=== PATIENT | male | born 1970 | race Caucasian/White ===

== ENCOUNTER 2016-09-15 13:09 | Inpatient (IN) | payer OTHER ==
[~2016-09-15] VITALS: Ht 170.2 cm; Wt 84.0 kg
[~2016-09-15 13:09] MED LIST: ASPI-390 PO
[2016-09-15 14:07] LABS: HEMATOCRIT 41.9 % (42-52); MEAN CELL VOLUME 80.1 fL (80-100); MEAN CORPUSCULAR HEMOGLOBIN 27.2 pg (25-34); MEAN CORPUSCULAR HGB CONC 33.9 g/dl (32-36); MEAN PLATELET VOLUME 10.6 fL (7.4-10.4); PLATELET COUNT 246 K/uL (130-400); RED BLOOD COUNT 5.23 M/uL (4.7-6.1); WHITE BLOOD COUNT 13.03 K/uL (4.8-10.8)
[2016-09-15] MEDS ORDERED: SODIUM CHLORIDE 0.9% 1000ML 1,000 ML IV STA (14:13)
[2016-09-15] MEDS ORDERED: ONDANSETRON INJ 2 MG/ML 2 ML VIAL IV STA (14:13)
[2016-09-15 14:14] LABS: BUN/CREATININE RATIO 10.8 (10-20); CALCIUM 8.8 mg/dl (8.5-10.1); CREATININE 1.2 mg/dl (0.60-1.40); POTASSIUM 4.1 mmol/L (3.5-5.1)
[2016-09-15 14:16] LABS: PARTIAL THROMBOPLASTIN RATIO 0.9
[2016-09-15 14:18] LABS: ALB/GLOB RATIO 1.2 (0.9-2); CKMB/CK RATIO 0.7 (0-3.0)
[2016-09-15] MEDS ORDERED: CLINDAMYCIN IV 900 MG in DEXTROSE 5% ADD-VANTAGE 100ML 100 ML IV ONE (14:30)
--- NOTE | 2016-09-15 14:34 | DIAGNOSTIC IMAGING REPORT ---
CHEST ONE VIEW PORTABLE CLINICAL HISTORY: chest pain COMPARISON STUDY: 08/07/2016 FINDINGS: The heart is at the upper limits of normal in size. There is mild central vascular prominence. There are left lower lobe airspace opacities with air bronchograms. In the proper clinical setting this represents a pneumonia. Clinical and radiographic follow-up is recommended.[ IMPRESSION: Left lower lobe airspace opacities with air bronchograms. In the proper clinical setting this represents a pneumonia. Clinical and radiographic follow-up is recommended. Electronically signed by: Michele Rivera M.D. 09/15/2016 2:32 PM Dictated Date/Time: 09/15/2016 2:32 PM
[2016-09-15 14:43] LABS: BASO % 0.1 %; BASO ABS # 0.01 K/uL (0-0.2); COMPLETE YES; IG% 0.2 %; LYMPH % 6.4 %; LYMPH ABS # 0.83 K/uL (1.2-3.4); MONO % 1.4 %; NEUT % 91.9 %
[2016-09-15] MEDS ORDERED: CEFEPIME IV 2000 MG in DEXTROSE 5% 100ML IV ONE (15:00)
[2016-09-15] MEDS ORDERED: ONDANSETRON INJ 2 MG/ML 2 ML VIAL IV PRN (16:00)
[2016-09-15] MEDS ORDERED: ALBUTEROL HFA 8 GM INHALER INH PRN (16:15)
--- NOTE | 2016-09-15 16:31 | History and Physical ---
History & Physical Date & Time of Service: Sep 15, 2016 at 16:10 Chief Complaint: Chest Pain Primary Care Physician: Fabricio Kelley M.D. (MEDICAL) History of Present Illness Source: patient, clinic records, hospital records, other (fiance at bedside) This is a 46 year old male with PMH of HTN, HL, asthma, and other problems listed below who presents to the ED for respiratory difficulty. Patient had colonoscopy today at [facility] and vomited during the procedure. He was discharged around 1 pm and went to [facility] where he became nauseous and had 1 episode clear liquid bowel movement with slight blood. While walking back from the restroom he became cold, sweaty, shaky, and developed chest pain. He states CP is on the left side, non-radiating, described as pressure. He rates the pain 6/10 and it increases with cough. He reports cough after the procedure without any sputum production. Before that he had occasional cough for a few weeks. He reports being SOB this afternoon which resolved. Denies fever, palpitations, nausea, abdominal pain. Patient denies any cardiac history. He states reason for colonoscopy was rectal bleeding. The report from today's colonoscopy shows internal hemorrhoids and diverticulosis of sigmoid colon. Past Medical/Surgical History Medical Problems: (1) Asthma Status: Chronic (2) Benign hypertension Status: Chronic (3) Chronic headaches Status: Chronic (4) Depression Status: Chronic (5) GERD (gastroesophageal reflux disease) Status: Chronic (6) History of hemorrhoids Permanent Comment: s/p hemorrhoidectomy 03/03/15 Status: Chronic (7) History of kidney stones Status: Chronic (8) Hyperlipidemia Status: Chronic (9) MIGRAINE UNSPECIFIED W/O INTRACT MGRN W/O STATUS MIGRAINOSUS Status: Chronic Surgical Problems: (1) H/O colonoscopy Status: Chronic (2) H/O cystoscopy Status: Chronic (3) History of dental surgery Status: Chronic (4) History of lithotripsy Status: Chronic (5) S/P hemorrhoidectomy Permanent Comment: 03/03/2015 Status: Chronic Family History Asthma Diabetes mellitus SISTER AUNT FH: cancer FATHER Hypertension Kidney disease Social History Smoking Status: Never Smoker Alcohol Use: none Drug Use: none Marital Status: in relationship Housing status: lives with significant other (with fiance) Occupational Status: disabled Immunizations History of Influenza Vaccine: Yes History of Tetanus Vaccine?: Yes History of Pneumococcal: No History of Hepatitis B Vaccine: No Multi-Drug Resistant Organisms History of MDRO: Yes Type of MDRO: MRSA Allergies Coded Allergies: BEE STING (Verified Allergy, Mild, 08/07/16) Codeine (Verified Allergy, Unknown, 08/07/16) Home Medications Scheduled Aspirin Enteric Coated (Ecotrin Or Generic), 81 MG PO DAILY Atorvastatin (Atorvastatin Calcium), 20 MG PO HS Bupropion (Wellbutrin Sr), 100 MG PO BID Carvedilol (Carvedilol), 6.25 MG PO BID Docusate Sodium (Docqlace), 100 MG PO BID Fluticasone Propionate (Flovent Hfa), 2 PUFFS INH BID Fluticasone Propionate (Fluticasone Propionate), 2 SPRAYS JAXSON DAILY Gabapentin (Gabapentin), 600 MG PO TID Lamotrigine (Lamotrigine), 100 MG PO BID Omeprazole (Prilosec), 20 MG PO DAILY Sertraline HCl (Sertraline HCl), 200 MG PO HS Sucralfate (Sucralfate), 1 TAB PO ACHS Scheduled PRN Albuterol Hfa (Ventolin Hfa), 2 PUFFS INH QID PRN for Shortness of Breath Epinephrine (Epipen 2-Nathaniel), 0.3 MG IM UD PRN for ALLERGIC REACTION Review of Systems Ten point review of systems performed with pertinent positives and negatives noted in HPI. Physical Exam Vital Signs Date Time Temp Pulse Resp B/P Pulse Ox O2 Delivery O2 Flow Rate FiO2 09/15/16 15:00 89 20 99/63 92 Room Air 09/15/16 14:51 91 Room Air 09/15/16 13:53 95 Nasal Cannula 2.0 09/15/16 13:18 82 09/15/16 13:15 37.2 79 18 107/66 92 Room Air General Appearance: WD/WN, no apparent distress, + pertinent finding (alert cooperative 46 year old male, fiance at bedside) Head: normocephalic, atraumatic Eyes: normal inspection, PERRL, EOMI, sclerae normal ENT: hearing grossly normal, pharynx normal Neck: supple, trachea midline Respiratory/Chest: no respiratory distress, no accessory muscle use, + decreased breath sounds (left base), + pertinent finding (no wheezing) Cardiovascular: regular rate, rhythm, no murmur Abdomen/GI: normal bowel sounds, non tender, soft Extremities/Musculoskelatal: no calf tenderness, normal capillary refill, no pedal edema Neurologic/Psych: alert, normal mood/affect, oriented x 3, + pertinent finding (grossly nonfocal) Skin: normal color, warm/dry Diagnostics Laboratory Results Results Past 24 Hours Test 09/15/16 13:20 Range/Units White Blood Count 13.03 4.8-10.8 K/uL Red Blood Count 5.23 4.7-6.1 M/uL Hemoglobin 14.2 14.0-18.0 g/dL Hematocrit 41.9 42-52 % Mean Corpuscular Volume 80.1 80-100 fL Mean Corpuscular Hemoglobin 27.2 25-34 pg Mean Corpuscular Hemoglobin Concent 33.9 32-36 g/dl Platelet Count 246 130-400 K/uL Mean Platelet Volume 10.6 7.4-10.4 fL Neutrophils (%) (Auto) 91.9 % Lymphocytes (%) (Auto) 6.4 % Monocytes (%) (Auto) 1.4 % Eosinophils (%) (Auto) 0.0 % Basophils (%) (Auto) 0.1 % Neutrophils # (Auto) 11.83 1.4-6.5 K/uL Lymphocytes # (Auto) 0.83 1.2-3.4 K/uL Monocytes # (Auto) 0.18 0.11-0.59 K/uL Eosinophils # (Auto) 0.00 0-0.5 K/uL Basophils # (Auto) 0.01 0-0.2 K/uL RDW Standard Deviation 43.8 36.4-46.3 fL RDW Coefficient of Variation 15.2 11.5-14.5 % Immature Granulocyte % (Auto) 0.2 % Immature Granulocyte # (Auto) 0.03 0.00-0.02 K/uL Nucleated RBC Absolute Count (auto) 0.00 0-0 K/uL Nucleated Red Blood Cells % 0.0 % Prothrombin Time 11.0 9.0-12.0 SECONDS Prothromb Time International Ratio 1.0 0.9-1.1 Activated Partial Thromboplast Time 22.5 21.0-31.0 SECONDS Partial Thromboplastin Ratio 0.9 Sodium Level 141 136-145 mmol/L Potassium Level 4.1 3.5-5.1 mmol/L Chloride Level 105 98-107 mmol/L Carbon Dioxide Level 25 21-32 mmol/L Anion Gap 11.0 3-11 mmol/L Blood Urea Nitrogen 13 7-18 mg/dl Creatinine 1.20 0.60-1.40 mg/dl Est Creatinine Clear Calc Drug Dose 80.5 ml/min Estimated GFR () 83.0 Estimated GFR (Non- 71.6 BUN/Creatinine Ratio 10.8 10-20 Random Glucose 110 70-99 mg/dl Calcium Level 8.8 8.5-10.1 mg/dl Total Bilirubin 0.5 0.2-1 mg/dl Aspartate Amino Transf (AST/SGOT) 30 15-37 U/L Alanine Aminotransferase (ALT/SGPT) 48 12-78 U/L Alkaline Phosphatase 183 45-117 U/L Total Creatine Kinase 86 39-308 U/L Creatine Kinase MB 0.6 0.5-3.6 ng/ml Creatine Kinase MB Ratio 0.7 0-3.0 Total Protein 8.2 6.4-8.2 gm/dl Albumin 4.4 3.4-5.0 gm/dl Globulin 3.8 2.5-4.0 gm/dl Albumin/Globulin Ratio 1.2 0.9-2 Procalcitonin 0.09 0-0.5 ng/mL Microbiology Results 09/15/16 Blood Culture, Received Pending 09/15/16 Blood Culture, Received Pending Diagnostic Radiology CHEST ONE VIEW PORTABLE CLINICAL HISTORY: chest pain COMPARISON STUDY: 08/07/2016 FINDINGS: The heart is at the upper limits of normal in size. There is mild central vascular prominence. There are left lower lobe airspace opacities with air bronchograms. In the proper clinical setting this represents a pneumonia. Clinical and radiographic follow-up is recommended.[ IMPRESSION: Left lower lobe airspace opacities with air bronchograms. In the proper clinical setting this represents a pneumonia. Clinical and radiographic follow-up is recommended. EKG NSR, nonspecific T wave inversion in aVL, no ST changes, no significant change from prior EKG Impression Assessment and Plan ASPIRATION PNEUMONIA Saturating low-mid 90s on RA Afebrile; + leukocytosis (WBC 13,000), no tachycardia or hypotension Treated with clindamycin and cefepime in ER Will continue empiric clindamycin for anaerobe coverage Blood cultures pending Check sputum culture if able CHEST PAIN Likely due to pneumonia Initial troponin 0 at 13:28 Monitor in telemetry Trend serial cardiac enzymes ASTHMA Not in exacerbation Continue home inhalers HYPERTENSION BP is controlled Continue carvedilol DYSLIPIDEMIA Continue statin DEPRESSION Stable, continue home medications HISTORY OF MRSA Check MRSA nasal swab GERD Continue PPI DVT PROPHYLAXIS SCD's DISPOSITION Admitted to telemetry Follows with Dr. Kelley for primary care Patient seen in collaboration with Dr. Jacobs. Please see her addendum. I have seen, examined and discussed this patient with Mallory Gamez and I agree with the above note. Patient presented with chest pain after likely aspiration after colonoscopy earlier today. Vitals stable. PE: General- awake; alert; NAD Eyes- EOMI; no scleral icterus ENT- poor dentition Neck- no stridor; trachea midline Lungs- crackles left lung base, otherwise clear Heart- RRR; no m/r/g Abdomen- soft; NTND; nBS Back- no gross abnormalities Extremities- no c/c/e; no deformity Neuro- no gross focal deficits Skin- no appreciable rash or bruise Labs, imaging and EKG reviewed. Aspiration pneumonia: Continue clindamycin. Chest pain: ACS r/o, although very low clinical suspicion for cardiac etiology. Continue home medications as outlined above. Anticipate discharge tomorrow. VTE Prophylaxis VTE Risk Assessment Done? Y/N: Yes Risk Level: Low
[2016-09-15] MEDS ORDERED: KETOROLAC TROMETHAMINE 15 MG/ML VIAL IM PRN (17:45)
[2016-09-15 18:18] VITALS: BP 103/70; PULSE 102; TEMP 37.3; O2SAT 93; Ht 170.2 cm; Wt 84.0 kg
[2016-09-15 19:54] VITALS: BP_SYST 108; BP_SYST 120; BP_DIAS 67; BP_DIAS 68; PULSE 57; PULSE 77; TEMP 37.1; O2SAT 97
[2016-09-15] MEDS: CARVEDILOL 6.25 MG TAB PO SCH (20:43)
[2016-09-15] MEDS: BuPROPion SR 100 MG TABCR PO SCH (20:43)
[2016-09-15] MEDS: SUCRALFATE 1 GM TAB PO SCH (20:43)
[2016-09-15] MEDS: GABAPENTIN 600 MG TAB PO SCH (20:43)
[2016-09-15] MEDS: FLUTICASONE HFA 110MCG INHALER INH SCH (20:43)
[2016-09-15] MEDS ORDERED: SERTRALINE HCL 100 MG TAB PO SCH (21:00)
[2016-09-15] MEDS ORDERED: ATORVASTATIN 20 MG TAB PO SCH (21:00)
[2016-09-15] MEDS: CLINDAMYCIN IV 600 MG in DEXTROSE 5% ADD-VANTAGE 50ML 50 ML IV SCH (23:03)
[2016-09-15] MEDS ORDERED: KETOROLAC TROMETHAMINE 15 MG/ML VIAL IV. PRN (23:45)
[2016-09-16 00:24] VITALS: BP 90/52; PULSE 75; TEMP 36.9; O2SAT 93
[2016-09-16 01:39] LABS: HEMATOCRIT 35.3 % (42-52); MEAN CELL VOLUME 78.4 fL (80-100); MEAN CORPUSCULAR HEMOGLOBIN 25.8 pg (25-34); MEAN CORPUSCULAR HGB CONC 32.9 g/dl (32-36); MEAN PLATELET VOLUME 9.9 fL (7.4-10.4); PLATELET COUNT 159 K/uL (130-400); WHITE BLOOD COUNT 14.35 K/uL (4.8-10.8)
[2016-09-16 01:58] LABS: BLOOD UREA NITROGEN 16 mg/dl (7-18); BUN/CREATININE RATIO 15.7 (10-20); CALCIUM 8.3 mg/dl (8.5-10.1); CARBON DIOXIDE 26 mmol/L (21-32); CHLORIDE 105 mmol/L (98-107); GLUCOSE 100 mg/dl (70-99); MAGNESIUM 1.8 mg/dl (1.8-2.4); POTASSIUM 3.7 mmol/L (3.5-5.1); SODIUM 142 mmol/L (136-145)
[2016-09-16] MEDS: ACETAMINOPHEN 325 MG TAB PO PRN ×2 (03:56→12:13)
[2016-09-16 04:33] VITALS: BP 102/63; PULSE 78; TEMP 37.3; O2SAT 91
[2016-09-16] MEDS: CLINDAMYCIN IV 600 MG in DEXTROSE 5% ADD-VANTAGE 50ML 50 ML IV SCH (06:27)
[2016-09-16] MEDS: SUCRALFATE 1 GM TAB PO SCH ×2 (06:27→11:46)
[2016-09-16] MEDS: FLUTICASONE HFA 110MCG INHALER INH SCH (07:54)
[2016-09-16] MEDS: GABAPENTIN 600 MG TAB PO SCH (07:54)
[2016-09-16 07:55] VITALS: BP 101/66; PULSE 75; TEMP 36.4; O2SAT 93
[2016-09-16] MEDS: BuPROPion SR 100 MG TABCR PO SCH (07:55)
[2016-09-16] MEDS: CARVEDILOL 6.25 MG TAB PO SCH (07:55)
[2016-09-16] MEDS: LACTOBACILLUS ACIDOPHILUS (FLORANEX) TAB PO SCH ×2 (07:56→11:48)
[2016-09-16] MEDS ORDERED: ASPIRIN 81 MG ECTAB PO SCH (09:00)
[2016-09-16] MEDS ORDERED: PANTOprazole SOD 40 MG TAB PO SCH (09:00)
[2016-09-16] MEDS ORDERED: FLUTICASONE PROPIONATE NA SPR 16 GM BTL NAE SCH (09:00)
[2016-09-16 11:39] VITALS: BP 92/53; PULSE 61; TEMP 36.9; O2SAT 92
[2016-09-16] MEDS ORDERED: LCTX PO (12:40)
[2016-09-16] MEDS ORDERED: CLIN300C2 PO (12:40)
--- NOTE | 2016-09-16 12:43 | Discharge Instructions ---
Discharge Instructions Admission Reason for Admission: Aspiration Pneumonia Discharge Discharge Diagnosis / Problem: Aspiration pneumonia Discharge Goals Goal(s): Improve disease control Activity Recommendations Activity Limitations: resume your previous activity . Instructions / Follow-Up Instructions / Follow-Up Please follow up with Family Medicine Dr. Kelley on September 21 at 2:10pm. Please take the antibiotic Clindamycin as prescribed until you are finished. Please take the probiotic every day while you are on the antibiotic and then for one week after. Current Hospital Diet Patient's current hospital diet: Clear Liquid Diet Discharge Diet Recommended Diet: AHA Diet (Heart Healthy) Pending Studies Studies pending at discharge: no Medical Emergencies . Who to Call and When: Medical Emergencies: If at any time you feel your situation is an emergency, please call 911 immediately. . Non-Emergent Contact Non-Emergency issues call your: Primary Care Provider . . "Provider Documentation" section prepared by Bridgett Cornell. VTE Core Measure Inpt VTE Proph given/why not?: SCD's
[2016-09-16 15:58] VITALS: BP 107/73; PULSE 80; TEMP 36.4; O2SAT 95
--- NOTE | 2016-09-16 21:52 | Discharge Summary ---
Discharge Summary Admission Date: Sep 15, 2016 at 15:55 Discharge Date: Sep 16, 2016 Discharge Disposition: Home Principal Diagnosis: Aspiration pneumonia Medication Reconciliation New Medications: Clindamycin Hcl (Cleocin) 300 Mg Cap 300 MG PO QID for 7 Days, #28 CAP Lactobacillus Acidophilus (Floranex) 1 Tab Tab 4 TAB PO TIDM for 14 Days, #56 TAB Continued Medications: Albuterol Hfa (Ventolin Hfa) 200 Puffs/29871 Mcg Aers 2 PUFFS INH QID PRN for Shortness of Breath Aspirin Enteric Coated (Ecotrin Or Generic) 81 Mg Tab 81 MG PO DAILY, TAB Atorvastatin (Atorvastatin Calcium) 20 Mg Tab 20 MG PO HS Bupropion (Wellbutrin Sr) 100 Mg Ertab 100 MG PO BID Carvedilol (Carvedilol) 6.25 Mg Tab 6.25 MG PO BID Docusate Sodium (Docqlace) 100 Mg Cap 100 MG PO BID Epinephrine (Epipen 2-Nathaniel) 0.3 Mg Inj 0.3 MG IM UD PRN for ALLERGIC REACTION Fluticasone Propionate (Flovent Hfa) 120 Puffs/39654 Mcg Aero 2 PUFFS INH BID Fluticasone Propionate (Fluticasone Propionate) 120 Sprays/6000 Mcg Inha 2 SPRAYS JAXSON DAILY Gabapentin (Gabapentin) 600 Mg Tab 600 MG PO TID Lamotrigine (Lamotrigine) 100 Mg Tab 100 MG PO BID Omeprazole (Prilosec) 20 Mg Cap 20 MG PO DAILY TAKE THIS MEDICATION ONCE DAILY ONE HOUR BEFORE FIRST MEAL OF THE DAY Sertraline HCl (Sertraline HCl) 100 Mg Tab 200 MG PO HS TAKE THIS MEDICATION ONE HOUR BEFORE BEDTIME. Sucralfate (Sucralfate) 1 Gm Tab 1 TAB PO ACHS for 30 Days, TAB 3 Refills Admission Information HPI (per Admitting provider): This is a 46 year old male with PMH of HTN, HL, asthma, and other problems listed below who presents to the ED for respiratory difficulty. Patient had colonoscopy today at [facility] and vomited during the procedure. He was discharged around 1 pm and went to [employer] where he became nauseous and had 1 episode clear liquid bowel movement with slight blood. While walking back from the restroom he became cold, sweaty, shaky, and developed chest pain. He states CP is on the left side, non-radiating, described as pressure. He rates the pain 6/10 and it increases with cough. He reports cough after the procedure without any sputum production. Before that he had occasional cough for a few weeks. He reports being SOB this afternoon which resolved. Denies fever, palpitations, nausea, abdominal pain. Patient denies any cardiac history. He states reason for colonoscopy was rectal bleeding. The report from today's colonoscopy shows internal hemorrhoids and diverticulosis of sigmoid colon. Physical Exam (per Admitting): General Appearance: WD/WN, no apparent distress, + pertinent finding (alert cooperative 46 year old male, fiance at bedside) Head: normocephalic, atraumatic Eyes: normal inspection, PERRL, EOMI, sclerae normal ENT: hearing grossly normal, pharynx normal Neck: supple, trachea midline Respiratory/Chest: no respiratory distress, no accessory muscle use, + decreased breath sounds (left base), + pertinent finding (no wheezing) Cardiovascular: regular rate, rhythm, no murmur Abdomen/GI: normal bowel sounds, non tender, soft Extremities/Musculoskelatal: no calf tenderness, normal capillary refill, no pedal edema Neurologic/Psych: alert, normal mood/affect, oriented x 3, + pertinent finding (grossly nonfocal) Skin: normal color, warm/dry Hospital Course Patient was admitted with LLL aspiration pneumonia, noted on CXR. Patient was continued on Clindamycin. Probiotic was started as well. ACS r/o was negative and there was very little clinical suspicion for cardiac etiology of patient's symptoms. Patient clinically improved and was deemed stable for discharge to complete a course of Clindamycin. Patient will follow up with Family Medicine. PE on discharge: General- awake; alert; NAD Eyes- EOMI; no scleral icterus Neck- no stridor; trachea midline Lungs- left basilar crackles, otherwise clear Heart- RRR; no m/r/g Abdomen- soft; NTND; nBS Back- no gross abnormalities Extremities- no c/c/e; no deformity Neuro- no gross focal deficits Skin- no appreciable rash or bruise . Total time spent on discharge = This includes examination of the patient, discharge planning, medication reconciliation, and communication with other providers. Discharge Instructions Discharge Instructions Admission Reason for Admission: Aspiration Pneumonia Discharge Discharge Diagnosis / Problem: Aspiration pneumonia Discharge Goals Goal(s): Improve disease control Activity Recommendations Activity Limitations: resume your previous activity . Instructions / Follow-Up Instructions / Follow-Up Please follow up with Family Medicine Dr. Kelley on September 21 at 2:10pm. Please take the antibiotic Clindamycin as prescribed until you are finished. Please take the probiotic every day while you are on the antibiotic and then for one week after. Current Hospital Diet Patient's current hospital diet: Clear Liquid Diet Discharge Diet Recommended Diet: AHA Diet (Heart Healthy) Pending Studies Studies pending at discharge: no Medical Emergencies . Who to Call and When: Medical Emergencies: If at any time you feel your situation is an emergency, please call 911 immediately. . Non-Emergent Contact Non-Emergency issues call your: Primary Care Provider . . "Provider Documentation" section prepared by Bridgett Cornell. VTE Core Measure Inpt VTE Proph given/why not?: SCD's Additional Copies To Fabricio Kelley M.D. (MEDICAL)
--- NOTE | 2016-09-21 15:45 | EMERGENCY ROOM VISIT NOTE ---
History First contact with patient: 14:00 Chief Complaint: CARDIAC ASSESSMENT Stated Complaint: ASPIRATION PNEUMONIA Nursing Triage Summary: PT PRESENTS TO ED VIA ALS FROM [facility] WITH C/O CHESTPAIN. PT HAD COLONOSCOPY COMPLETED THIS AM. WENT TO [facility] AFTER SCOPE. PT DENIES NAUSEA AT TIMES History of Present Illness The patient is a 46 year old male who presents to the Emergency Department via EMS for evaluation of his chest pain and called with breathing. The patient reports that he has scheduled colonoscopy today at [facility]. He reports that he had vomited during the procedure at some point. He was monitored at their facility for an extended period of time. It was felt that he was ready to be discharged. He and his significant other had gone to the [facility] for lunch when the patient developed watery diarrhea as well as nausea and vomiting. When he returned to the table, he became extreme nauseated and had some chest discomfort and difficulty with breathing. He was brought via EMS to the emergency department for evaluation. Patient currently complains of some mild central chest discomfort in his pain a 4/10. He has had a cough since. The patient denies any fevers, headaches, blurry vision, double vision, nausea, vomiting. Review of Systems A complete 10-point Review of Systems was discussed with the patient, with pertinent positives and negatives listed in the History of Present Illness. All remaining Review of Systems questions can be considered negative unless otherwise specified. Past Medical/Surgical History Medical Problems: (1) Aspiration pneumonia (2) Asthma (3) Benign hypertension (4) Chest pain (5) Chronic headaches (6) Depression (7) GERD (gastroesophageal reflux disease) (8) History of hemorrhoids (9) History of kidney stones (10) Hyperlipidemia (11) MIGRAINE UNSPECIFIED W/O INTRACT MGRN W/O STATUS MIGRAINOSUS Surgical Problems: (1) H/O colonoscopy (2) H/O cystoscopy (3) History of dental surgery (4) History of lithotripsy (5) S/P hemorrhoidectomy Family History Asthma Diabetes mellitus SISTER AUNT FH: cancer FATHER Hypertension Kidney disease Social History Smoking Status: Former Smoker Alcohol Use: none Drug Use: none Marital Status: in relationship Housing Status: lives with significant other Occupation Status: disabled Current/Historical Medications Scheduled Aspirin Enteric Coated (Ecotrin Or Generic), 81 MG PO DAILY Atorvastatin (Atorvastatin Calcium), 20 MG PO HS Bupropion (Wellbutrin Sr), 100 MG PO BID Carvedilol (Carvedilol), 6.25 MG PO BID Clindamycin Hcl (Cleocin), 300 MG PO QID Docusate Sodium (Docqlace), 100 MG PO BID Fluticasone Propionate (Flovent Hfa), 2 PUFFS INH BID Fluticasone Propionate (Fluticasone Propionate), 2 SPRAYS JAXSON DAILY Gabapentin (Gabapentin), 600 MG PO TID Lactobacillus Acidophilus (Floranex), 4 TAB PO TIDM Lamotrigine (Lamotrigine), 100 MG PO BID Omeprazole (Prilosec), 20 MG PO DAILY Sertraline HCl (Sertraline HCl), 200 MG PO HS Sucralfate (Sucralfate), 1 TAB PO ACHS Scheduled PRN Albuterol Hfa (Ventolin Hfa), 2 PUFFS INH QID PRN for Shortness of Breath Epinephrine (Epipen 2-Nathaniel), 0.3 MG IM UD PRN for ALLERGIC REACTION Allergies Coded Allergies: BEE STING (Verified Allergy, Mild, 08/07/16) Codeine (Verified Allergy, Unknown, 08/07/16) Physical Exam Vital Signs Date Time Temp Pulse Resp B/P Pulse Ox O2 Delivery O2 Flow Rate FiO2 09/15/16 15:00 89 20 99/63 92 Room Air 09/15/16 14:51 91 Room Air 09/15/16 13:53 95 Nasal Cannula 2.0 09/15/16 13:18 82 09/15/16 13:15 37.2 79 18 107/66 92 Room Air Pain Rating (0-10): 4.0 Physical Exam VITAL SIGNS - Vital signs and nursing notes were reviewed. GENERAL - 46-year-old male appearing his stated age who is in no acute distress. Communicates well with provider and answers questions appropriately. HEAD - NC/AT. EYES - PERRL with EOMI bilaterally. Sclera anicteric. Palpebral conjunctiva pink and moist with no injection noted. EARS - No deformities of external structures noted on gross examination bilaterally. No pain elicited with palpation of the tragus bilaterally. External auditory canals without discharge or otorrhea. Tympanic membranes pearly moore without retraction or bulging. NOSE - Midline and without cyanosis. No epistaxis or purulent drainage noted. Septum midline without deviation or septal hematoma noted. MOUTH/OROPHARYNX - Without perioral cyanosis. Buccal mucosa pink and moist and without leukoplakia. Tongue midline with equal elevation of palate bilaterally. No tonsillar hypertrophy, erythema, or exudates noted. NECK - Neck with FROM. Supple to palpation. LUNGS - Chest wall symmetric without accessory muscle use, intercostals retractions, or central cyanosis. Normal vesicular breath sounds CTA B/L. No wheezes, rales, or rhonchi appreciated. CARDIAC - RRR with S1/S2. No murmur, rubs, or gallops appreciated. No reproducible tenderness to palpation appreciated over the anterior chest wall. ABDOMEN - Abdominal contour flat and without pulsations or visible masses. BS normoactive all four quadrants. No tenderness, palpable masses, hepatosplenomegaly, or ascites noted. EXTREMITIES - No clubbing or peripheral cyanosis. No pretibial edema present. +3 /5 radial and dorsalis pedis pulses palpated throughout. +5/5 strength noted in UE/LE bilaterally. NEUROLOGIC - Cranial nerves II through XII grossly intact. Sensory intact to light touch throughout. PSYCH - A&Ox3 and cooperates fully with examiner. Pt is very pleasant and interacts well with examiner. Medical Decision & Procedures ER Provider Diagnostic Interpretation: Radiological imaging and reports were reviewed by myself. Radiologist's Interpretation as follows: CHEST ONE VIEW PORTABLE CLINICAL HISTORY: chest pain COMPARISON STUDY: 08/07/2016 FINDINGS: The heart is at the upper limits of normal in size. There is mild central vascular prominence. There are left lower lobe airspace opacities with air bronchograms. In the proper clinical setting this represents a pneumonia. Clinical and radiographic follow-up is recommended.[ IMPRESSION: Left lower lobe airspace opacities with air bronchograms. In the proper clinical setting this represents a pneumonia. Clinical and radiographic follow-up is recommended. Laboratory Results Test 09/15/16 13:20 Immature Granulocyte % (Auto) 0.2 % White Blood Count 13.03 K/uL (4.8-10.8) Red Blood Count 5.23 M/uL (4.7-6.1) Hemoglobin 14.2 g/dL (14.0-18.0) Hematocrit 41.9 % (42-52) Mean Corpuscular Volume 80.1 fL (80-100) Mean Corpuscular Hemoglobin 27.2 pg (25-34) Mean Corpuscular Hemoglobin Concent 33.9 g/dl (32-36) Platelet Count 246 K/uL (130-400) Mean Platelet Volume 10.6 fL (7.4-10.4) Neutrophils (%) (Auto) 91.9 % Lymphocytes (%) (Auto) 6.4 % Monocytes (%) (Auto) 1.4 % Eosinophils (%) (Auto) 0.0 % Basophils (%) (Auto) 0.1 % Neutrophils # (Auto) 11.83 K/uL (1.4-6.5) Lymphocytes # (Auto) 0.83 K/uL (1.2-3.4) Monocytes # (Auto) 0.18 K/uL (0.11-0.59) Eosinophils # (Auto) 0.00 K/uL (0-0.5) Basophils # (Auto) 0.01 K/uL (0-0.2) Immature Granulocyte # (Auto) 0.03 K/uL (0.00-0.02) Nucleated RBC Absolute Count (auto) 0.00 K/uL (0-0) Nucleated Red Blood Cells % 0.0 % Prothrombin Time 11.0 SECONDS (9.0-12.0) Prothromb Time International Ratio 1.0 (0.9-1.1) Activated Partial Thromboplast Time 22.5 SECONDS (21.0-31.0) Partial Thromboplastin Ratio 0.9 Total Bilirubin 0.5 mg/dl (0.2-1) Aspartate Amino Transf (AST/SGOT) 30 U/L (15-37) Alanine Aminotransferase (ALT/SGPT) 48 U/L (12-78) Alkaline Phosphatase 183 U/L (45-117) Total Protein 8.2 gm/dl (6.4-8.2) Albumin 4.4 gm/dl (3.4-5.0) Globulin 3.8 gm/dl (2.5-4.0) Albumin/Globulin Ratio 1.2 (0.9-2) Procalcitonin 0.09 ng/mL (0-0.5) Date/Time Source Procedure Growth Status 09/15/16 14:44 Blood Blood Culture - Final NO GROWTH Complete Medications Administered Medications (Trade) Dose Ordered Sig/Judy Route Start Time Stop Time Status Last Admin Dose Admin Ondansetron HCl 4 mg 4 mg NOW STAT IV 09/15/16 14:13 09/15/16 14:15 DC 09/15/16 14:21 4 MG Sodium Chloride 1,000 ml @ 999 mls/hr Q1H1M STAT IV 09/15/16 14:13 09/15/16 15:13 DC 09/15/16 14:20 999 MLS/HR Clindamycin Phosphate 900 mg/ Dextrose 106 ml @ 100 mls/hr ONE ONCE IV 09/15/16 14:30 09/15/16 15:33 DC 09/15/16 14:58 100 MLS/HR Cefepime HCl/ Dextrose (Maxipime IV/D5 100ml) 112.5 ml @ 225 mls/hr NOW ONCE IV 09/15/16 15:00 09/15/16 15:29 DC 09/15/16 15:08 225 MLS/HR Procedure Patient was placed on the night monitor and monitored throughout the entire extent of their stay. In addition, the patient's pulse oximetry was monitored throughout the entire stay. Any abnormalities or aberrancies were addressed appropriately. ECG Indication: chest pain, SOB/dyspnea Rate (beats per minute): 76 Rhythm: normal sinus Findings: nonspecific-ST abn Change: no significant change (from 06/24/2016.) ED Course Patient was seen and evaluated by myself. Labs were drawn, saline lock complains. EKG and chest x-rays were obtained. Patient was treated with formal grams Zofran and hydrated with a 1000 mL normal saline bolus. Laboratory results demonstrate a moderate leukocytosis. The patient is not anemic. There are no significant electrolyte abnormalities. Cardiac enzymes are negative. Chest x-ray concerning for left lower lobe infiltrate. Given the patient's recent vomiting during procedure, I suspect the patient has likely expansive aspiration pneumonitis. Blood cultures were obtained. The patient was treated with clindamycin and cefepime. The patient will be admitted to the hospitalist program for continued management. Patient admitted in stable condition. Medical Decision Given the patient's presentation and stated complaint, I did elect to perform the above-mentioned workup. I am familiar with this patient for multiple previous visits for chronic migrainous headaches. The patient does appear somewhat shaken today and concerned. Patient did experience some vomiting during a colonoscopy procedure under general anesthesia. Patient's pulse ox was closely monitored and it was felt that he was ready to be discharged. At this point, the patient is borderline hypoxic and has an infiltrate on the LEFT lower lobe of the lung concern for aspiration pneumonia. Blood cultures were obtained and the patient was treated with IV clindamycin as well as IV cefepime at the recommendation of pharmacy. Blood cultures are pending at this time. Patient will be admitted for continued management. Patient admitted in fair condition. In the evaluation and treatment of this patient, the following differential diagnoses were considered: SC, ASC, Dysrhythmia, Angina, Mediastinitis, GERD, Esophagitis, PE, Pneumonia, Bronchitis, Costochondritis, Rib Fracture, Zoster. Impression Primary Impression: Aspiration pneumonia Departure Information Dispostion Admitted as an inpatient Condition GOOD Prescriptions Clindamycin Hcl (CLEOCIN) 300 Mg Cap 300 MG PO QID for 7 Days, #28 CAP Prov: Bridgett Jacobs MD 09/16/16 Lactobacillus Acidophilus (Floranex) 1 Tab Tab 4 TAB PO TIDM for 14 Days, #56 TAB Prov: Bridgett Jacobs MD 09/16/16 Referrals Fabricio Kelley M.D. (MEDICAL) (PCP) Forms IMPORTANT VISIT INFORMATION Patient Instructions [facility] Problem Qualifiers Primary Impression: Aspiration pneumonia Aspiration pneumonia type: unspecified Laterality: left Lung location: lower lobe of lung Qualified Codes: J69.0 - Pneumonitis due to inhalation of food and vomit
[2017-04-02] MEDS ORDERED: DOCU100C22 PO (15:52)
[2017-04-02] MEDS ORDERED: SUCR1TAB PO (16:09)
[2017-04-02] MEDS ORDERED: VNTHFA/IN INH (16:19)
[2017-04-02] MEDS ORDERED: BUPR100T8 PO (16:19)
[2017-04-02] MEDS ORDERED: FLVHFA110 INH (20:51)
[2017-04-02] MEDS ORDERED: LPT/20 PO (20:51)
[2017-04-02] MEDS ORDERED: OMEP20CA9 PO (20:51)
[2017-04-02] MEDS ORDERED: NRN600 PO (20:51)
[2017-04-02] MEDS ORDERED: ZLF/100 PO (20:51)
[2017-04-02] MEDS ORDERED: EPP3/2 IM (20:51)
[2017-04-02] MEDS ORDERED: LAMO1TAB21 PO (20:51)
[2017-04-02] MEDS ORDERED: FLNIN/ NAE (21:19)
[2017-04-02] MEDS ORDERED: CRG625 PO (21:19)
[2017-04-02] MEDS ORDERED: ASPI81TA21 PO (22:37)
== END 2016-09-16 13:20 | disposition home or self-care (01) | DRG 205 ==
LOC: ENRESERVTM → ENRESERVDT → EDBD 13:09 → C.EDA 13:10 → C.2E 15:55 → EDBEDREQSVC 16:00
PROVIDERS: ADMIT Internal Medicine; ATTEND Internal Medicine
DX: J95.89 Other postprocedural complications and disorders of respiratory system, not elsewhere classified (principal); J69.0 Pneumonitis due to inhalation of food and vomit; I10 Essential (primary) hypertension; J45.909 Unspecified asthma, uncomplicated; F32.9 Major depressive disorder, single episode, unspecified; K21.9 Gastro-esophageal reflux disease without esophagitis; E78.5 Hyperlipidemia, unspecified; Z83.3 Family history of diabetes mellitus; Z82.49 Family history of ischemic heart disease and other diseases of the circulatory system; Z84.1 Family history of disorders of kidney and ureter; Z79.82 Long term (current) use of aspirin; Z79.899 Other long term (current) drug therapy

== ENCOUNTER 2016-10-06 14:55 | Emergency (ER) | payer OTHER ==
[~2016-10-06] VITALS: Ht 170.2 cm; Wt 87.1 kg
[~2016-10-06 14:55] MED LIST changes: -ASPI-390 PO; +LCTX PO
[2016-10-06 15:16] VITALS: TEMP 37.1; Ht 170.2 cm; Wt 87.1 kg
[2016-10-06] MEDS ORDERED: MoRPHine SULFATE 10 MG/ML CARP/VIAL IM STA (15:37)
[2016-10-06] MEDS ORDERED: PROMETHAZINE HCL INJ 25 MG/ML 1 ML VIAL IM STA (15:37)
[2016-10-06 16:39] VITALS: BP 115/73; PULSE 65; O2SAT 97
--- NOTE | 2016-10-07 00:15 | EMERGENCY ROOM VISIT NOTE ---
History Report prepared by Meagan: Griselda Krueger Under the Supervision of: Dr. Harry Cordon M.D. First contact with patient: 15:27 Chief Complaint: HEADACHE Stated Complaint: MIGRAINE History of Present Illness The patient is a 46 year old male who presents to the Emergency Room with complaints of a gradually worsening frontal headache that started this morning. He rates his discomfort as a 7/10 in severity. The patient states that he has been seeing pain management and getting shots, which have helped. The headache feels like his typical migraines. He is also experiencing nausea. Pt denies LOC , recent trauma to the head, visual changes, neck pain, chest pain, breathing difficulties, vomiting, abdominal pain, new back pain, diarrhea, numbness, rash , or other complaints. Source of History: patient Onset: this morning Position: head Symptom Intensity: 7/10 Quality: other (headache) Timing: worsening (gradually) Associated Symptoms: + nausea Review of Systems See HPI for pertinent positives and negatives. A total of ten systems were reviewed and were otherwise negative. Past Medical & Surgical Medical Problems: (1) Aspiration pneumonia (2) Asthma (3) Benign hypertension (4) Chest pain (5) Chronic headaches (6) Depression (7) GERD (gastroesophageal reflux disease) (8) History of hemorrhoids (9) History of kidney stones (10) Hyperlipidemia (11) MIGRAINE UNSPECIFIED W/O INTRACT MGRN W/O STATUS MIGRAINOSUS Surgical Problems: (1) H/O colonoscopy (2) H/O cystoscopy (3) History of dental surgery (4) History of lithotripsy (5) S/P hemorrhoidectomy Family History Asthma Diabetes mellitus SISTER AUNT FH: cancer FATHER Hypertension Kidney disease Social History Smoking Status: Former Smoker Alcohol Use: none Drug Use: none Marital Status: in relationship Housing Status: lives with significant other Occupation Status: disabled Current/Historical Medications Scheduled Aspirin Enteric Coated (Ecotrin Or Generic), 81 MG PO DAILY Atorvastatin (Atorvastatin Calcium), 20 MG PO HS Bupropion (Wellbutrin Sr), 100 MG PO BID Carvedilol (Carvedilol), 6.25 MG PO BID Docusate Sodium (Docqlace), 100 MG PO BID Fluticasone Propionate (Flovent Hfa), 2 PUFFS INH BID Fluticasone Propionate (Fluticasone Propionate), 2 SPRAYS JAXSON DAILY Gabapentin (Gabapentin), 600 MG PO TID Lamotrigine (Lamotrigine), 100 MG PO BID Omeprazole (Prilosec), 20 MG PO DAILY Sertraline HCl (Sertraline HCl), 200 MG PO HS Sucralfate (Sucralfate), 1 GM PO ACHS Scheduled PRN Albuterol Hfa (Ventolin Hfa), 2 PUFFS INH QID PRN for Shortness of Breath Epinephrine (Epipen 2-Nathaniel), 0.3 MG IM UD PRN for ALLERGIC REACTION Allergies Coded Allergies: BEE STING (Verified Allergy, Mild, 08/07/16) Codeine (Verified Allergy, Unknown, 08/07/16) Physical Exam Vital Signs Date Time Temp Pulse Resp B/P Pulse Ox O2 Delivery O2 Flow Rate FiO2 10/06/16 16:39 65 16 115/73 97 Room Air 10/06/16 15:16 37.1 66 20 117/77 96 Room Air Physical Exam GENERAL: Awake, alert, well appearing, no distress HENT: Normocephalic, atraumatic. TM's normal. Oropharynx unremarkable. EYES: PERRL. EOMI. Normal conjunctiva. Sclera non-icteric. NECK: Supple. No nuchal rigidity. FROM. No JVD or bruit. RESPIRATORY: CTA CARDIAC: RRR. No murmur. ABDOMEN: Soft, non distended. No tenderness to palpation. No rebound or guarding. No masses. RECTAL: Deferred. MUSCULOSKELETAL: Unremarkable. No edema. No discoloration. Gross motor strength symmetric. NEURO: Cranial nerves 2-12 grossly intact. Normal sensorium. No sensory or motor deficits noted. Speech normal. No pronator drift. SKIN: No rash or jaundice noted. LYMPH: No adenopathy. Medical Decision & Procedures Medications Administered Medications (Trade) Dose Ordered Sig/Judy Route Start Time Stop Time Status Last Admin Dose Admin Promethazine HCl (Phenergan Inj) 50 mg NOW STAT IM 10/06/16 15:37 10/06/16 15:38 DC 10/06/16 16:09 50 MG Morphine Sulfate (MoRPHine SULFATE INJ) 10 mg NOW STAT IM 10/06/16 15:37 10/06/16 15:38 DC 10/06/16 16:08 10 MG ED Course 1535: The patient was evaluated in room D9. A complete history and physical exam was performed. 1537: Ordered Morphine Sulfate 10 mg IM, Phenergan Inj 50 mg IM 1615: I reevaluated the patient. Discussed results and discharge instructions: he verbalized understanding and agreement. The patient is ready for discharge. Medical Decision Prior records/ancillary studies reviewed. Triage Nursing notes reviewed and agree them. The patient's history was concerning for headache. Differential diagnosis: Etiologies such as migraine headache, meningitis, sinusitis, CO exposure, ICH, SAH, infection, tumor, headache, sinus thrombosis, arterial dissection, as well as others were entertained. Physical examination findings: As above. Non-focal. ER treatment provided: Morphine 10 mg IM Phenergan 50 mg IM On reassessment the patient felt better. Diagnostics interpreted by me: Deferred The patient has long history of migraine headaches. He is on a treatment plan. Has been several weeks since he has been in the emergency department for treatment. He is undergoing pain management. The patient had a nonfocal examination. He was treated with his usual medications and had good relief. Conservative management was discussed. The patient was in agreement. If he worsens she will come back for reevaluation. I gave my usual and customary discussion regarding this issue. By the evaluation outlined above emergent etiologies such as meningitis, sinusitis, CO exposure, ICH, SAH, infection, temporal arteritis, tumor, sinus thrombosis, arterial dissection, as well as others were deemed relatively unlikely. The patient was informed about the findings as listed above. All questions were answered and he was pleased with the treatment. Return instructions were outlined and the patient was discharged in stable condition. Outpatient prescription management: None Referral: The patient was referred back to his primary care physician for follow-up in 2 to 3 days for a recheck of the current condition. The chart was completed utilizing Real Time Translation Speech voice recognition software. Grammatical errors, random word insertions, pronoun errors, and incomplete sentences are an occasional consequence of this system due to software limitations, ambient noise, and hardware issues. Any formal questions or concerns about the content, text, or information contained within the body of this dictation should be directly addressed to the physician for clarification. Impression Primary Impression: Headache Scribe Attestation The scribe's documentation has been prepared under my direction and personally reviewed by me in its entirety. I confirm that the note above accurately reflects all work, treatment, procedures, and medical decision making performed by me. Departure Information Dispostion Home / Self-Care Referrals Fabricio Kelley M.D. (MEDICAL) (PCP) Patient Instructions [facility] Additional Instructions HEADACHE INSTRUCTIONS: DO NOT drive, drink alcohol, operate machinery, or perform dangerous activities today. You were given medications in the ER that can affect your ability to safely function or operate a vehicle. Rest today in a quiet, peaceful, dark environment and get a full 8-10 hrs of sleep tonight. Avoid loud noises, smoke/smoking, alcohol, bright lights, stress, or physical exertion today to minimize the chance the headache may return. Continue current medications. Ibuprofen(Motrin, Advil) may be used for fever or pain. Use 600mg every six hours as needed. Take with food. Avoid using more than 2400mg in a 24 hour period. Do not use 2400mg per day for more than three consecutive days without physician direction. Prolonged inappropriate use can lead to stomach upset or ulcers. (AND/OR) Acetaminophen(Tylenol) may be used for fever or pain. Use 1000mg every six hours as needed. Avoid using more than 4000mg in a 24 hour period. Return to the ER for passing out, worsening headache, vision problems, neck stiffness/pain, fevers, vomiting, worsening of your condition, or as needed. Follow up with your primary physician in 2-3 days for a recheck of your current condition. Problem Qualifiers Primary Impression: Headache Headache type: unspecified Headache chronicity pattern: episodic headache Intractability: not intractable Qualified Codes: R51 - Headache
[2017-04-02] MEDS ORDERED: DOCU100C22 PO (15:52)
[2017-04-02] MEDS ORDERED: SUCR1TAB PO (16:09)
[2017-04-02] MEDS ORDERED: BUPR100T8 PO (16:19)
[2017-04-02] MEDS ORDERED: VNTHFA/IN INH (16:19)
[2017-04-02] MEDS ORDERED: LAMO1TAB21 PO (20:51)
[2017-04-02] MEDS ORDERED: ZLF/100 PO (20:51)
[2017-04-02] MEDS ORDERED: EPP3/2 IM (20:51)
[2017-04-02] MEDS ORDERED: FLVHFA110 INH (20:51)
[2017-04-02] MEDS ORDERED: OMEP20CA9 PO (20:51)
[2017-04-02] MEDS ORDERED: LPT/20 PO (20:51)
[2017-04-02] MEDS ORDERED: NRN600 PO (20:51)
[2017-04-02] MEDS ORDERED: FLNIN/ NAE (21:19)
[2017-04-02] MEDS ORDERED: CRG625 PO (21:19)
[2017-04-02] MEDS ORDERED: ASPI81TA21 PO (22:37)
== END 2016-10-06 16:50 | disposition home or self-care (01) ==
LOC: C.EDB 14:56 → C.EDD 16:50
DX: R51 Headache (principal); I10 Essential (primary) hypertension; E78.5 Hyperlipidemia, unspecified; K21.9 Gastro-esophageal reflux disease without esophagitis; J45.909 Unspecified asthma, uncomplicated; F32.9 Major depressive disorder, single episode, unspecified; Z87.442 Personal history of urinary calculi; Z98.890 Other specified postprocedural states; Z87.891 Personal history of nicotine dependence; Z79.82 Long term (current) use of aspirin; Z79.899 Other long term (current) drug therapy; Z88.5 Allergy status to narcotic agent; Z91.030 Bee allergy status; Z83.3 Family history of diabetes mellitus; Z80.9 Family history of malignant neoplasm, unspecified; Z82.49 Family history of ischemic heart disease and other diseases of the circulatory system; Z84.1 Family history of disorders of kidney and ureter

== ENCOUNTER 2016-10-25 13:03 | Emergency (ER) | payer OTHER ==
[~2016-10-25] VITALS: Ht 170.2 cm; Wt 88.8 kg
[2016-10-25 13:06] VITALS: TEMP 37; Ht 170.2 cm; Wt 88.8 kg
[2016-10-25] MEDS ORDERED: XYLOCAINE 1%/SOD BICARB 20 ML VIAL INFIL ONE (13:10)
[2016-10-25 13:54] VITALS: BP 122/80; PULSE 66; O2SAT 98
--- NOTE | 2016-10-29 09:08 | EMERGENCY ROOM VISIT NOTE ---
ED Visit Note First contact with patient: 13:24 Chief Complaint: Left index finger laceration. History of Present Illness: Mr. Gregg is a 46-year-old white male who ambulates into the ED accompanied by his complaining of a posterior left finger laceration. Patient reports approximately one hour ago he was grinding a piece of metal and accidentally cut his finger with the swing grinder. Control bleeding prior to arrival at the hospital but did not clean the wound. In addition to his wound he is complaining of a burning lying over the posterior aspect of the left index finger over the middle phalanx in the area the laceration. He rates his discomfort 5/10. The pain is nonradiating. Pain slightly worsens with palpation. He has not identified any alleviating related to the pain. He has not taken medications for pain prior to arrival at the hospital. He denies any associated symptoms including other finger or hand pain , index finger weakness/numbness/tingling. Review of Systems: As noted above in history of present illness. Past Medical History: (1) Aspiration pneumonia (2) Asthma (3) Benign hypertension (4) Chest pain (5) Chronic headaches (6) Depression (7) GERD (gastroesophageal reflux disease) (8) History of hemorrhoids (9) History of kidney stones (10) Hyperlipidemia (11) MIGRAINE UNSPECIFIED W/O INTRACT MGRN W/O STATUS MIGRAINOSUS Surgical Problems: (1) H/O colonoscopy (2) H/O cystoscopy (3) History of dental surgery (4) History of lithotripsy (5) S/P hemorrhoidectomy Current Medications: Medications Dose Route/Sig Max Daily Dose Days Date Category Dose Instructions Sucralfate 1 Gm Tab 1 Gm PO ACHS 09/15/16 Reported Wellbutrin Sr (Bupropion HCl) 100 Mg Ertab 100 Mg PO BID 07/24/16 Reported Ventolin Hfa (Albuterol) 200 Puffs/85428 Mcg Aers 2 Puffs INH QID PRN 07/24/16 Reported Docqlace (Docusate Sodium) 100 Mg Cap 100 Mg PO BID 02/08/16 Reported Fluticasone Propionate 120 Sprays/6000 Mcg Inha 2 Sprays JAXSON DAILY 11/26/15 Reported Carvedilol 6.25 Mg Tab 6.25 Mg PO BID 06/10/14 Reported Atorvastatin Calcium (Atorvastatin) 20 Mg Tab 20 Mg PO HS 9/15/14 Reported Lamotrigine 100 Mg Tab 100 Mg PO BID 05/06/14 Reported Gabapentin 600 Mg Tab 600 Mg PO TID 05/06/14 Reported Flovent Hfa (Fluticasone Propionate) 120 Puffs/63993 Mcg Aero 2 Puffs INH BID 05/06/14 Reported Prilosec (Omeprazole) 20 Mg Cap 20 Mg PO DAILY 05/06/14 Reported TAKE THIS MEDICATION ONCE DAILY ONE HOUR BEFORE FIRST MEAL OF THE DAY Epipen 2-Nathaniel (Epinephrine) 0.3 Mg Inj 0.3 Mg IM UD PRN 05/06/14 Reported Sertraline HCl 100 Mg Tab 200 Mg PO HS 05/06/14 Reported TAKE THIS MEDICATION ONE HOUR BEFORE BEDTIME. Ecotrin Or Generic (Aspirin) 81 Mg Tab 81 Mg PO DAILY 05/30/12 Reported Allergies to Medications: Codeine. Social History: Patient is currently employed; he feels safe in his home environment; he denies tobacco use. Tetanus Immunization Status: Patient reports up-to-date. Physical Examination: Vital Signs: Date Time Temp Pulse Resp B/P Pulse Ox O2 Delivery O2 Flow Rate FiO2 10/25/16 13:54 66 16 122/80 98 10/25/16 13:06 37.0 70 17 134/87 97 Room Air GENERAL: 46-year-old male in mild distress due to pain, nontoxic-appearing, afebrile and hemodynamically stable. NEUROLOGICAL: Awake, alert and oriented to person, place and time. Answering questions appropriately and following commands. Normal gait. Good hand eye coordination. No focal motor sensory deficits. SKIN: Warm, dry and pink. Left Index Finger: 2.3 cm full-thickness laceration over the middle phalanx. No active bleeding. No exposure of the tendon or underlying structures. LEFT INDEX FINGER: Soft tissue injury as noted above. No gross bony deformity. Full range of motion of the MCP, PIP and DIP joint against resistance. Skin was warm and pink and capillary refill. He was able to distinguish light sensations through all dermatomes. ED Course: Patient is assessed as noted above. Wound Repair: Complexity: Basic Verbal consent was obtained after the risks and benefits were explained. The skin was prepped with betadine and a sterile field set. Wound edges of the wound was anesthetized with 1.2 ml buffered 1% lidocaine. The wound was explored for foreign bodies and none found. Copious irrigation was performed using sterile saline. With direct pressure the bleeding subsided. Debridement was not performed. The wound edges were approximated using 5-0 Ethilon with 5 simple interrupted sutures. Hemostasis and excellent approximation was achieved. Antibacterial ointment and a sterile dressing applied. No complications and the patient tolerated the procedure well. Patient was educated about tonight's findings and instructed on his treatment plan; he verbalizes understanding and agreement with this plan. Clinical Impression: Laceration of the left index finger. Disposition: Patient discharged home in stable condition; prior to departure he was reassessed and subjectively reported he was pain-free. Plan: Comfort measures, wound care, and signs of infection were discussed with the patient. Patient was encouraged to follow-up with return to the ED for signs of infection and/or suture removal in 10-12 days.
[2017-04-02] MEDS ORDERED: DOCU100C22 PO (15:52)
[2017-04-02] MEDS ORDERED: SUCR1TAB PO (16:09)
[2017-04-02] MEDS ORDERED: VNTHFA/IN INH (16:19)
[2017-04-02] MEDS ORDERED: BUPR100T8 PO (16:19)
[2017-04-02] MEDS ORDERED: EPP3/2 IM (20:51)
[2017-04-02] MEDS ORDERED: NRN600 PO (20:51)
[2017-04-02] MEDS ORDERED: FLVHFA110 INH (20:51)
[2017-04-02] MEDS ORDERED: LPT/20 PO (20:51)
[2017-04-02] MEDS ORDERED: LAMO1TAB21 PO (20:51)
[2017-04-02] MEDS ORDERED: OMEP20CA9 PO (20:51)
[2017-04-02] MEDS ORDERED: ZLF/100 PO (20:51)
[2017-04-02] MEDS ORDERED: FLNIN/ NAE (21:19)
[2017-04-02] MEDS ORDERED: CRG625 PO (21:19)
[2017-04-02] MEDS ORDERED: ASPI81TA21 PO (22:37)
== END 2016-10-25 13:55 | disposition home or self-care (01) ==
LOC: C.EDB 13:05 → C.EDD 13:55
DX: S61.211A Laceration without foreign body of left index finger without damage to nail, initial encounter (principal); W31.1XXA Contact with metalworking machines, initial encounter; Z87.01 Personal history of pneumonia (recurrent); J45.909 Unspecified asthma, uncomplicated; I10 Essential (primary) hypertension; K21.9 Gastro-esophageal reflux disease without esophagitis; E78.5 Hyperlipidemia, unspecified

== ENCOUNTER 2016-11-05 16:45 | Emergency (ER) | payer OTHER ==
[~2016-11-05] VITALS: Ht 170.2 cm; Wt 89.5 kg
[2016-11-05 17:02] VITALS: TEMP 36.8; Ht 170.2 cm; Wt 89.5 kg
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
--- NOTE | 2016-11-05 19:06 | EMERGENCY ROOM VISIT NOTE ---
ED Visit Note First contact with patient: 17:16 I did evaluate and examine this patient myself. I did guide management for the patient. I agree with the PA's assessment as discussed. Please see the PAs dictation for further details. I did independently review the x-rays.
--- NOTE | 2016-11-05 19:07 | EMERGENCY ROOM VISIT NOTE ---
ED Visit Note First contact with patient: 17:16 CHIEF COMPLAINT: "Suture removal and left knee pain" HISTORY OF PRESENT ILLNESS: This 46-year-old male patient presents to the emergency department via private vehicle accompanied by female after sustaining an injury to the left knee knee 8 days ago. The patient denies any other injuries besides their knee and also notes that he is here for removal of the stitches on his finger. The patient notes minor swelling or bruising. There is pain at the anterior inferior knee. They rate the pain as minor, 4/10. The patient states they are able to walk on it. No numbness or tingling. No previous injuries to this knee. No ankle, foot or hip pain. In regard to the stitches, the patient states this is healing well without pain, discharge or ailment. REVIEW OF SYSTEMS: A 6 system review of systems was completed with positives and pertinent negatives listed in the HPI. ALLERGIES: As noted above MEDICATIONS: As noted below PMH: High blood pressure, bronchitis, stomach problems, stent in long SOCIAL HISTORY: Patient lives at home with [facility], [place] PHYSICAL EXAM: Vital Signs: Reviewed Nurse's notes, vital signs stable. GENERAL : 46-year-old male, no acute distress, but appears in pain, well-developed, well -nourished. MUSCULOSKELETAL: The left anterior knee is minimally swollen. There is minimal ecchymosis. There is no joint effusion present. The patient minimally tender at the anterior knee. There is no joint line tenderness. The patella does not subluxate. Range of motion is within normal limits. The foot and toes are warm and well-perfused. Dorsalis pedis pulse 2+. Sensation to pain and light touch is intact. Capillary refill less than 2 seconds. EMERGENCY DEPARTMENT COURSE: I examined the patient. X-rays of the left knee were reviewed by myself and read by radiology and reveal no acute fractures or dislocation. The patient was offered a knee immobilizer crutches but declined. The stitches were removed without difficulty. The patient was discharged home in good condition. The patient is a follow-up regarding today's visit with his family doctor and orthopedic surgeon. In the evaluation and treatment of this patient, the following differential diagnoses were considered: Patellar Fracture, Tibial Plateau Fracture, Distal Femur Fracture, ACL Injury, PCL Injury, Collateral Ligament Injury, Pes Anserine Bursitis, suture removal, Maisonneuve Fracture. Problem List Medical Problems: (1) Asthma Status: Chronic (2) Benign hypertension Status: Chronic (3) Chronic headaches Status: Chronic (4) Depression Status: Chronic (5) GERD (gastroesophageal reflux disease) Status: Chronic (6) History of hemorrhoids Permanent Comment: s/p hemorrhoidectomy 03/03/15 Status: Chronic (7) History of kidney stones Status: Chronic (8) Hyperlipidemia Status: Chronic (9) MIGRAINE UNSPECIFIED W/O INTRACT MGRN W/O STATUS MIGRAINOSUS Status: Chronic Surgical Problems: (1) H/O colonoscopy Status: Chronic (2) H/O cystoscopy Status: Chronic (3) History of dental surgery Status: Chronic (4) History of lithotripsy Status: Chronic (5) S/P hemorrhoidectomy Permanent Comment: 03/03/2015 Status: Chronic Current/Historical Medications Scheduled Aspirin Enteric Coated (Ecotrin Or Generic), 81 MG PO DAILY Atorvastatin (Atorvastatin Calcium), 20 MG PO HS Bupropion (Wellbutrin Sr), 100 MG PO BID Carvedilol (Carvedilol), 6.25 MG PO BID Docusate Sodium (Docqlace), 100 MG PO BID Fluticasone Propionate (Flovent Hfa), 2 PUFFS INH BID Fluticasone Propionate (Fluticasone Propionate), 2 SPRAYS JAXSON DAILY Gabapentin (Gabapentin), 600 MG PO TID Lamotrigine (Lamotrigine), 100 MG PO BID Omeprazole (Prilosec), 20 MG PO DAILY Sertraline HCl (Sertraline HCl), 200 MG PO HS Sucralfate (Sucralfate), 1 GM PO ACHS Scheduled PRN Albuterol Hfa (Ventolin Hfa), 2 PUFFS INH QID PRN for Shortness of Breath Epinephrine (Epipen 2-Nathaniel), 0.3 MG IM UD PRN for ALLERGIC REACTION Allergies Coded Allergies: BEE STING (Verified Allergy, Mild, 11/05/16) Codeine (Verified Allergy, Unknown, 11/05/16) Vital Signs Date Time Temp Pulse Resp B/P Pulse Ox O2 Delivery O2 Flow Rate FiO2 11/05/16 19:13 74 14 136/76 97 11/05/16 17:02 36.8 86 18 141/89 96 Room Air Departure Information Impression Primary Impression: Knee pain Additional Impression: Encounter for removal of sutures Dispostion Home / Self-Care Condition GOOD Referrals Fabricio Kelley M.D. (MEDICAL) (PCP) Mayank Garza D.O. Patient Instructions My [facility] Additional Instructions You have been treated in the Emergency Department for Knee Pain and suture removal. For pain control, you can use the following logm-azh-amuappl medicines (if >12 yo): - Regular strength (325mg/tab) Tylenol (acetaminophen) 2 tabs every 4-6 hours as needed. Do not exceed 12 tablets in a 24 hour period. Avoid taking more than 4 grams (4000 mg) of Tylenol per day. This includes any other sources of acetaminophen you may take on a regular basis. - Regular strength (200 mg/tab) Advil (ibuprofen) 1-2 tabs every 4-6 hours as needed. Do not exceed a dose of 3200 mg per day. If this is a recent injury (<24 hrs), ice can be applied to the area of pain for the first 3 days to help decrease pain and inflammation. Ice massages can be performed by freezing water in a paper cup, peeling back the cup to expose the ice and then massaging over the affected area. You have been provided the number for an Orthopaedic Surgeon. You should call this number as soon as possible to establish a follow-up visit from today's Emergency Department visit and follow up with family doctor Please try to keep ALL weight off of the knee until weight bearing is tolerable. Return to the Emergency Department if your current symptoms worsen despite treatment course outlined above. Problem Qualifiers Primary Impression: Knee pain Laterality: left Chronicity: acute Qualified Codes: M25.562 - Pain in left knee
[2016-11-05 19:13] VITALS: BP 136/76; PULSE 74; O2SAT 97
[2017-04-02] MEDS ORDERED: DOCU100C22 PO (15:52)
[2017-04-02] MEDS ORDERED: SUCR1TAB PO (16:09)
[2017-04-02] MEDS ORDERED: BUPR100T8 PO (16:19)
[2017-04-02] MEDS ORDERED: VNTHFA/IN INH (16:19)
[2017-04-02] MEDS ORDERED: LPT/20 PO (20:51)
[2017-04-02] MEDS ORDERED: LAMO1TAB21 PO (20:51)
[2017-04-02] MEDS ORDERED: OMEP20CA9 PO (20:51)
[2017-04-02] MEDS ORDERED: NRN600 PO (20:51)
[2017-04-02] MEDS ORDERED: ZLF/100 PO (20:51)
[2017-04-02] MEDS ORDERED: EPP3/2 IM (20:51)
[2017-04-02] MEDS ORDERED: FLVHFA110 INH (20:51)
[2017-04-02] MEDS ORDERED: CRG625 PO (21:19)
[2017-04-02] MEDS ORDERED: FLNIN/ NAE (21:19)
[2017-04-02] MEDS ORDERED: ASPI81TA21 PO (22:37)
== END 2016-11-05 19:14 | disposition home or self-care (01) ==
LOC: C.EDB 16:47 → C.EDD 19:14
DX: M25.562 Pain in left knee (principal); W19.XXXA Unspecified fall, initial encounter; S61.219D Laceration without foreign body of unspecified finger without damage to nail, subsequent encounter; X58.XXXD Exposure to other specified factors, subsequent encounter; J45.909 Unspecified asthma, uncomplicated; I10 Essential (primary) hypertension; F32.9 Major depressive disorder, single episode, unspecified; K21.9 Gastro-esophageal reflux disease without esophagitis; Z87.442 Personal history of urinary calculi; E78.5 Hyperlipidemia, unspecified; G43.909 Migraine, unspecified, not intractable, without status migrainosus; Z79.82 Long term (current) use of aspirin; Z79.899 Other long term (current) drug therapy

== ENCOUNTER 2016-11-16 13:35 | Emergency (ER) | payer OTHER ==
[~2016-11-16] VITALS: Ht 170.2 cm; Wt 89.9 kg
[2016-11-16 13:41] VITALS: BP 137/87; PULSE 67; TEMP 36.7; O2SAT 97; Ht 170.2 cm; Wt 89.9 kg
--- NOTE | 2016-11-16 16:21 | EMERGENCY ROOM VISIT NOTE ---
ED Visit Note First contact with patient: 13:44 CHIEF COMPLAINT: knee pain HISTORY OF PRESENT ILLNESS: This 46-year-old male patient presents to the emergency department after sustaining an injury to the left knee about 2 weeks ago. The patient was initially seen and evaluated in this department following his injury. X-rays at that time were negative. The patient has been able to ambulate since the time of injury, but states he has persisting pain. He has not contacted his primary care physician or an orthopedist. The patient denies any other injuries besides their knee. There is pain diffusely. They rate the pain as dull and 8/10. REVIEW OF SYSTEMS: A 6 system review of systems was completed with positives and pertinent negatives listed in the HPI. ALLERGIES: Bee stings, codeine MEDICATIONS: See EMR PMH: Chronic migraines SOCIAL HISTORY: Lives with significant other PHYSICAL EXAM: Vital Signs: Reviewed Nurse's notes, vital signs stable. GENERAL : White male, no acute distress, but appears in pain, well-developed, well- nourished. MENTAL STATUS: Alert, oriented to person place and time, and cooperative. MUSCULOSKELETAL: The left knee is not swollen. There is no ecchymosis. There is no joint effusion present. The patient is tender laterally. There is lateral joint line tenderness. The patella does not subluxate. Range of motion is normal. Strength of the quads and hamstrings is 5/ 5. Nilson's is negative. Yanique's and Anterior Drawer tests are negative. There is no laxity with varus and valgus stressing. The foot and toes are warm and well-perfused. Dorsalis pedis pulse 2+. Sensation to pain and light touch is intact. Capillary refill less than 2 seconds. EMERGENCY DEPARTMENT COURSE: Physical exam and history were performed. Nursing notes and EMR were reviewed. The patient has knee pain after injuring himself a few weeks ago. He does not have new injury and has not followed with his primary care physician or with an orthopedist. The patient states that we did not provide him instructions to follow with orthopedics at his last visit. Review of EMR shows that he was referred to [facility], Dr. Garza, for further management. The patient is ambulatory and without new injury. Because of this I do not feel additional x-rays are pertinent. The patient will be given crutches to help with his discomfort. He needs to follow with orthopedics for further management. He was otherwise invited back to the ER with any new, worsening, or concerning symptoms. Problem List Medical Problems: (1) Asthma Status: Chronic (2) Benign hypertension Status: Chronic (3) Chronic headaches Status: Chronic (4) Depression Status: Chronic (5) GERD (gastroesophageal reflux disease) Status: Chronic (6) History of hemorrhoids Permanent Comment: s/p hemorrhoidectomy 03/03/15 Status: Chronic (7) History of kidney stones Status: Chronic (8) Hyperlipidemia Status: Chronic (9) MIGRAINE UNSPECIFIED W/O INTRACT MGRN W/O STATUS MIGRAINOSUS Status: Chronic Surgical Problems: (1) H/O colonoscopy Status: Chronic (2) H/O cystoscopy Status: Chronic (3) History of dental surgery Status: Chronic (4) History of lithotripsy Status: Chronic (5) S/P hemorrhoidectomy Permanent Comment: 03/03/2015 Status: Chronic Current/Historical Medications Scheduled Aspirin Enteric Coated (Ecotrin Or Generic), 81 MG PO DAILY Atorvastatin (Atorvastatin Calcium), 20 MG PO HS Bupropion (Wellbutrin Sr), 100 MG PO BID Carvedilol (Carvedilol), 6.25 MG PO BID Docusate Sodium (Docqlace), 100 MG PO BID Fluticasone Propionate (Flovent Hfa), 2 PUFFS INH BID Fluticasone Propionate (Fluticasone Propionate), 2 SPRAYS JAXSON DAILY Gabapentin (Gabapentin), 600 MG PO TID Lamotrigine (Lamotrigine), 100 MG PO BID Omeprazole (Prilosec), 20 MG PO DAILY Sertraline HCl (Sertraline HCl), 200 MG PO HS Sucralfate (Sucralfate), 1 GM PO ACHS Scheduled PRN Albuterol Hfa (Ventolin Hfa), 2 PUFFS INH QID PRN for Shortness of Breath Epinephrine (Epipen 2-Nathaniel), 0.3 MG IM UD PRN for ALLERGIC REACTION Allergies Coded Allergies: BEE STING (Verified Allergy, Mild, 11/05/16) Codeine (Verified Allergy, Unknown, 11/05/16) Vital Signs Date Time Temp Pulse Resp B/P Pulse Ox O2 Delivery O2 Flow Rate FiO2 11/16/16 13:41 36.7 67 18 137/87 97 Room Air Departure Information Impression Primary Impression: Left knee pain Dispostion Home / Self-Care Condition GOOD Referrals Nixon Han MD Forms HOME CARE DOCUMENTATION FORM, IMPORTANT VISIT INFORMATION Patient Instructions My [facility] Additional Instructions You were seen and evaluated today on an emergency basis only. This is not a substitute for, or an effort to provide, complete comprehensive medical care. It is not possible to recognize and treat all injuries or illnesses in a single emergency department visit. For this reason it is recommended that you followup with Orthopedics, Dr. Matthew Gallego's office, for ongoing care and evaluation. Call today to schedule your appointment. For baseline pain relief you may alternate ibuprofen and acetaminophen every 4 hours for pain control. Take 600 mg ibuprofen (Advil) and then 4 hours later take 1000 mg acetaminophen (Tylenol). Do not take more than 3000 mg acetaminophen in a single day. You are welcome to return to the emergency department anytime with new, worsening, or concerning symptoms.
[2017-04-02] MEDS ORDERED: DOCU100C22 PO (15:52)
[2017-04-02] MEDS ORDERED: SUCR1TAB PO (16:09)
[2017-04-02] MEDS ORDERED: VNTHFA/IN INH (16:19)
[2017-04-02] MEDS ORDERED: BUPR100T8 PO (16:19)
[2017-04-02] MEDS ORDERED: OMEP20CA9 PO (20:51)
[2017-04-02] MEDS ORDERED: LPT/20 PO (20:51)
[2017-04-02] MEDS ORDERED: EPP3/2 IM (20:51)
[2017-04-02] MEDS ORDERED: NRN600 PO (20:51)
[2017-04-02] MEDS ORDERED: LAMO1TAB21 PO (20:51)
[2017-04-02] MEDS ORDERED: ZLF/100 PO (20:51)
[2017-04-02] MEDS ORDERED: FLVHFA110 INH (20:51)
[2017-04-02] MEDS ORDERED: CRG625 PO (21:19)
[2017-04-02] MEDS ORDERED: FLNIN/ NAE (21:19)
[2017-04-02] MEDS ORDERED: ASPI81TA21 PO (22:37)
== END 2016-11-16 14:02 | disposition home or self-care (01) ==
LOC: C.EDB 13:36 → C.EDD 14:02
DX: M25.562 Pain in left knee (principal); I10 Essential (primary) hypertension; E78.5 Hyperlipidemia, unspecified; J45.909 Unspecified asthma, uncomplicated; F32.9 Major depressive disorder, single episode, unspecified; Z87.442 Personal history of urinary calculi; Z98.890 Other specified postprocedural states; Z79.82 Long term (current) use of aspirin; Z79.899 Other long term (current) drug therapy; Z88.5 Allergy status to narcotic agent; Z91.030 Bee allergy status

== ENCOUNTER 2016-12-10 19:43 | Emergency (ER) | payer OTHER ==
[~2016-12-10] VITALS: Ht 170.2 cm; Wt 87.5 kg
[2016-12-10 19:44] VITALS: TEMP 36.9; Ht 170.2 cm; Wt 87.5 kg
[2016-12-10] MEDS ORDERED: PROMETHAZINE HCL INJ 25 MG/ML 1 ML VIAL IM STA (20:32)
[2016-12-10] MEDS ORDERED: MoRPHine SULFATE 10 MG/ML CARP/VIAL IM STA (20:32)
--- NOTE | 2016-12-10 20:33 | EMERGENCY ROOM VISIT NOTE ---
History Report prepared by Meagan: Ar Le Under the Supervision of: Dr. Doe Ayon D.O. First contact with patient: 20:20 Chief Complaint: HEADACHE Stated Complaint: MIGRAINE History of Present Illness The patient is a 46 year old male who presents to the Emergency Room with complaints of a persistent headache since yesterday. The headache came on suddenly and covers the front and temporal areas. The headache is typical of his migraines. He also complains of nausea but has not vomited. He denies fevers or chills. The patient has not had a headache like this for months. Source of History: patient Onset: yesterday Position: head Quality: other (migraine) Timing: other (persistent) Associated Symptoms: + nausea, No chills, No fevers, No vomiting Review of Systems See HPI for pertinent positives & negatives. A total of 10 systems reviewed and were otherwise negative. Past Medical & Surgical Medical Problems: (1) Aspiration pneumonia (2) Asthma (3) Benign hypertension (4) Chest pain (5) Chronic headaches (6) Depression (7) GERD (gastroesophageal reflux disease) (8) History of hemorrhoids (9) History of kidney stones (10) Hyperlipidemia (11) MIGRAINE UNSPECIFIED W/O INTRACT MGRN W/O STATUS MIGRAINOSUS Surgical Problems: (1) H/O colonoscopy (2) H/O cystoscopy (3) History of dental surgery (4) History of lithotripsy (5) S/P hemorrhoidectomy Family History Asthma Diabetes mellitus SISTER AUNT FH: cancer FATHER Hypertension Kidney disease Social History Smoking Status: Former Smoker Alcohol Use: none Drug Use: none Marital Status: in relationship Housing Status: lives with significant other Occupation Status: disabled Current/Historical Medications Scheduled Aspirin Enteric Coated (Ecotrin Or Generic), 81 MG PO DAILY Atorvastatin (Atorvastatin Calcium), 20 MG PO HS Bupropion (Wellbutrin Sr), 100 MG PO BID Carvedilol (Carvedilol), 6.25 MG PO BID Docusate Sodium (Docqlace), 100 MG PO BID Fluticasone Propionate (Flovent Hfa), 2 PUFFS INH BID Fluticasone Propionate (Fluticasone Propionate), 2 SPRAYS JAXSON DAILY Gabapentin (Gabapentin), 600 MG PO TID Lamotrigine (Lamotrigine), 100 MG PO BID Omeprazole (Prilosec), 20 MG PO DAILY Sertraline HCl (Sertraline HCl), 200 MG PO HS Sucralfate (Sucralfate), 1 GM PO ACHS Scheduled PRN Albuterol Hfa (Ventolin Hfa), 2 PUFFS INH QID PRN for Shortness of Breath Epinephrine (Epipen 2-Nathaniel), 0.3 MG IM UD PRN for ALLERGIC REACTION Allergies Coded Allergies: BEE STING (Verified Allergy, Mild, 11/05/16) Codeine (Verified Allergy, Unknown, 11/05/16) Physical Exam Vital Signs Date Time Temp Pulse Resp B/P Pulse Ox O2 Delivery O2 Flow Rate FiO2 12/10/16 21:23 70 16 127/84 95 12/10/16 19:44 36.9 78 16 127/79 96 Room Air Physical Exam GENERAL: Patient is awake, alert, and in no acute distress. Patient is resting comfortably and showing no signs of anxiety EYES: The conjunctivae are clear. The pupils are round and reactive. EARS, NOSE, MOUTH AND THROAT: The nose is without any evidence of any deformity. Mucous membranes are moist tongue is midline NECK: The neck is nontender and supple. RESPIRATORY: Normal respiratory effort is noted there is no evidence of wheezing rhonchi or rales CARDIOVASCULAR: Regular rate and rhythm noted there no murmurs rubs or gallops normal S1 normal S2 GASTROINTESTINAL: The abdomen is soft. Bowel sounds are present in all quadrants. Abdomen is nontender MUSCULOSKELETAL/EXTREMITIES: There is no evidence of gross deformity full range of motion is noted in the hips and shoulders SKIN: There is no obvious evidence of any rash. There are no petechiae, pallor or cyanosis noted. NEUROLOGIC: Patient is awake alert and oriented x3 strength is symmetric patellar reflexes are 2+ bilaterally Medical Decision & Procedures Medications Administered Medications (Trade) Dose Ordered Sig/Judy Route Start Time Stop Time Status Last Admin Dose Admin Morphine Sulfate (MoRPHine SULFATE INJ) 10 mg NOW STAT IM 12/10/16 20:32 12/10/16 20:56 DC 12/10/16 20:39 10 MG Promethazine HCl (Phenergan Inj) 50 mg NOW STAT IM 12/10/16 20:32 12/10/16 20:56 DC 12/10/16 20:32 50 MG ED Course 2024: The patient was evaluated in room C11b. A complete history and physical examination were performed. 2031: Phenergan 50 mg IM, Morphine Sulfate 10 mg IM. 2114: Reassessed the patient. He was feeling better. Patient is ready for discharge. Medical Decision Prior records/ancillary studies reviewed. Triage Nursing notes reviewed. The patient's history was concerning for headache. Differential diagnosis: Etiologies such as migraine headache, meningitis, sinusitis, CO exposure, ICH, SAH, infection, tumor, headache, sinus thrombosis, arterial dissection, as well as others were entertained. The patient is a 46-year-old male who presented to the emergency department for evaluation of headache. The patient has a history of chronic headache syndrome. He states his headache is similar to previous headaches he's had the past. He was encouraged to rest and avoid any strenuous activity. He was treated with pain medications he is received in the past. He had no meningismus fever or focal neurologic deficits. He was encouraged to follow-up with his primary care physician for further evaluation but return to the emergency department immediately if symptoms change worsen or if the need arises. Impression Primary Impression: Headache Scribe Attestation The scribe's documentation has been prepared under my direction and personally reviewed by me in its entirety. I confirm that the note above accurately reflects all work, treatment, procedures, and medical decision making performed by me. Departure Information Dispostion Home / Self-Care Referrals Fabricio Kelley M.D. (MEDICAL) (PCP) Forms HOME CARE DOCUMENTATION FORM, IMPORTANT VISIT INFORMATION Patient Instructions Headache Pain, My [facility] Additional Instructions Rest and avoid any strenuous activity. Continue all medications as prescribed. Follow-up with your family for further evaluation. Return to the emergency department if symptoms change worsen or the need arises. Problem Qualifiers Primary Impression: Headache Headache type: unspecified Headache chronicity pattern: chronic headache Intractability: not intractable Qualified Codes: R51 - Headache
[2016-12-10 21:23] VITALS: BP 127/84; PULSE 70; O2SAT 95
[2017-04-02] MEDS ORDERED: BUPR100T8 PO (16:19)
[2017-07-14] MEDS ORDERED: DOCU100C22 PO (15:52)
[2017-07-14] MEDS ORDERED: SUCR1TAB PO (16:09)
[2017-07-14] MEDS ORDERED: VNTHFA/IN INH (16:19)
== END 2016-12-10 21:24 | disposition home or self-care (01) ==
LOC: C.EDB 19:44 → C.EDC 21:24
DX: R51 Headache (principal); I10 Essential (primary) hypertension; E78.5 Hyperlipidemia, unspecified; F32.9 Major depressive disorder, single episode, unspecified; K21.9 Gastro-esophageal reflux disease without esophagitis; J45.909 Unspecified asthma, uncomplicated; Z79.82 Long term (current) use of aspirin; Z79.899 Other long term (current) drug therapy; Z87.01 Personal history of pneumonia (recurrent); Z87.09 Personal history of other diseases of the respiratory system; Z87.891 Personal history of nicotine dependence; Z82.49 Family history of ischemic heart disease and other diseases of the circulatory system; Z83.3 Family history of diabetes mellitus; Z83.6 Family history of other diseases of the respiratory system; Z84.1 Family history of disorders of kidney and ureter

== ENCOUNTER 2016-12-25 20:41 | Emergency (ER) | payer OTHER ==
[~2016-12-25] VITALS: Ht 170.2 cm; Wt 85.0 kg
[2016-12-25 20:47] VITALS: TEMP 37.1; Ht 170.2 cm; Wt 85.0 kg
[2016-12-25 20:51] VITALS: O2SAT 96
[2016-12-25] MEDS ORDERED: SODIUM CHLORIDE 0.9% 1000ML 1,000 ML IV STA (21:10)
[2016-12-25] MEDS ORDERED: SODIUM CHLORIDE 0.9% 1000ML 500 ML IV STA (21:10)
[2016-12-25] MEDS ORDERED: PROMETHAZINE HCL INJ 12.5 MG in SODIUM CHLORIDE 0.9% 50ML 50 ML IV STA (21:10)
[2016-12-25] MEDS ORDERED: MoRPHine SULFATE 10 MG/ML CARP/VIAL IV PRN (21:15)
--- NOTE | 2016-12-25 21:18 | EMERGENCY ROOM VISIT NOTE ---
History Report prepared by Meagan: Butch Clemente Under the Supervision of: Dr. Blade Matthew M.D. First contact with patient: 21:04 Chief Complaint: CHEST PAIN Stated Complaint: CHEST PAIN Nursing Triage Summary: Patient arrived via EMS. EMS reports patient was at home in the bathroom where patient felt he was going to fall so he lowered himself to the floor by sliding with his back to the wall. Patient developed 7/10 non-radiating chest pain that becomes worse with palpation and generalized abdominal pain at a 7/10. Patient has no N/V or SOB. History of Present Illness The patient is a 46 year old male who presents to the Emergency Room via ambulance with complaints of a persistent chest pain that started around 2 hours ago. He states that he started having bad diarrhea yesterday, and has had many episodes of diarrhea today. He notes that he started feeling nauseous and getting chest pain around 2 hours ago. He went to the bathroom, and felt weak and thought he might pass out and fall, so he lowered himself to the floor by sliding with his back to the wall. He denies any falls or loss of consciousness. The patient says that he also felt a bit warm. He rates his chest pain as a 7 out of 10 in severity. The patient denies any chills or vomiting. He says that he cannot think of a reason for the diarrhea, and he has not eaten anything that would cause diarrhea. The patient denies any recent sick contacts. He has no heart attack history. He takes a baby aspirin every morning. The patient goes to pain management, and was last there 2 days ago. He gets Botox every 3 months at pain management for headaches. Source of History: patient, family Onset: 2 hours ago Position: chest Symptom Intensity: 7/10 Timing: other (persistent) Associated Symptoms: + diarrhea, + nausea, + weakness, No LOC, No chills, No vomiting Note: Associated symptoms: [place] a bit warm. Denies fall. Review of Systems See HPI for pertinent positives & negatives. A total of 10 systems reviewed and were otherwise negative. Past Medical & Surgical Medical Problems: (1) Aspiration pneumonia (2) Asthma (3) Benign hypertension (4) Chest pain (5) Chronic headaches (6) Depression (7) GERD (gastroesophageal reflux disease) (8) History of hemorrhoids (9) History of kidney stones (10) Hyperlipidemia (11) MIGRAINE UNSPECIFIED W/O INTRACT MGRN W/O STATUS MIGRAINOSUS Surgical Problems: (1) H/O colonoscopy (2) H/O cystoscopy (3) History of dental surgery (4) History of lithotripsy (5) S/P hemorrhoidectomy Family History Asthma Diabetes mellitus SISTER AUNT FH: cancer FATHER Hypertension Kidney disease Social History Smoking Status: Former Smoker Alcohol Use: none Drug Use: none Marital Status: in relationship Housing Status: lives with significant other Occupation Status: disabled Current/Historical Medications Scheduled Aspirin Enteric Coated (Ecotrin Or Generic), 81 MG PO DAILY Atorvastatin (Atorvastatin Calcium), 20 MG PO HS Bupropion (Wellbutrin Sr), 100 MG PO BID Carvedilol (Carvedilol), 6.25 MG PO BID Docusate Sodium (Docqlace), 100 MG PO BID Fluticasone Propionate (Flovent Hfa), 2 PUFFS INH BID Fluticasone Propionate (Fluticasone Propionate), 2 SPRAYS JAXSON DAILY Gabapentin (Gabapentin), 600 MG PO TID Lamotrigine (Lamotrigine), 100 MG PO BID Omeprazole (Prilosec), 20 MG PO DAILY Sertraline HCl (Sertraline HCl), 200 MG PO HS Sucralfate (Sucralfate), 1 GM PO ACHS Scheduled PRN Albuterol Hfa (Ventolin Hfa), 2 PUFFS INH QID PRN for Shortness of Breath Epinephrine (Epipen 2-Nathaniel), 0.3 MG IM UD PRN for ALLERGIC REACTION Allergies Coded Allergies: BEE STING (Verified Allergy, Mild, 11/05/16) Codeine (Verified Allergy, Unknown, 11/05/16) Physical Exam Vital Signs Date Time Temp Pulse Resp B/P Pulse Ox O2 Delivery O2 Flow Rate FiO2 12/25/16 20:52 85 12/25/16 20:51 96 Room Air 12/25/16 20:47 37.1 88 16 135/90 96 Room Air 12/25/16 20:47 96 Room Air Physical Exam GENERAL: Patient is in no acute distress. HEENT: No acute trauma, normocephalic atraumatic, mucous membranes moist, no nasal congestion, no scleral icterus. NECK: No stridor, no adenopathy, no meningismus, trachea is midline. LUNGS: Clear to auscultation bilaterally, no wheeze, no rhonchi, breath sounds equal. HEART: Without murmurs gallops or rubs, regular rate and rhythm. CHEST: Tender to the mid and lower anterior chest wall. ABDOMEN: Diffusely midly tender. Bowel sounds positive. No peritonitis or distension. EXTREMITIES: No cyanosis or edema, full range of motion of all the joints without pain or difficulty, no signs for acute trauma. NEUROLOGIC: Oriented x 3, no acute motor or sensory deficits, no focal weakness. SKIN: No rash, no jaundice, no diaphoresis. Medical Decision & Procedures ER Provider Diagnostic Interpretation: X-ray results as stated below per interpretation by me and the radiologist: CHEST ONE VIEW PORTABLE CLINICAL HISTORY: CHEST PAIN dyspnea COMPARISON STUDY: 09/15/2016 FINDINGS: The bones soft tissues and hemidiaphragms are normal. The cardiomediastinal silhouette is normal. The lungs are clear. The pulmonary vasculature is normal. IMPRESSION: Negative chest. Electronically signed by: Samir Ngo M.D. 12/25/2016 9:46 PM Dictated Date/Time: 12/25/2016 9:46 PM Laboratory Results 12/25/16 21:36 Test 12/25/16 21:36 12/25/16 21:38 12/25/16 22:14 Red Blood Count 5.16 M/uL (4.7-6.1) Mean Corpuscular Volume 80.8 fL (80-100) Mean Corpuscular Hemoglobin 27.1 pg (25-34) Mean Corpuscular Hemoglobin Concent 33.6 g/dl (32-36) RDW Standard Deviation 41.8 fL (36.4-46.3) RDW Coefficient of Variation 14.4 % (11.5-14.5) Mean Platelet Volume 9.8 fL (7.4-10.4) Bedside Troponin I 0.010 ng/ml (0-0.045) Laboratory results reviewed by me. Medications Administered Medications (Trade) Dose Ordered Sig/Judy Route Start Time Stop Time Status Last Admin Dose Admin Sodium Chloride 500 ml @ 999 mls/hr Q31M STAT IV 12/25/16 21:10 12/25/16 21:40 DC 12/25/16 21:10 999 MLS/HR Sodium Chloride (Nss 1000ml) 1,000 ml @ 200 mls/hr Q5H STAT IV 12/25/16 21:10 12/26/16 02:09 12/25/16 21:10 200 MLS/HR Morphine Sulfate 4 mg 4 mg Q15M PRN IV 12/25/16 21:15 01/08/17 21:14 12/25/16 21:45 4 MG Promethazine HCl/ Sodium Chloride (Phenergan Inj/ Nss 50ml) 50.5 ml @ 204 mls/hr NOW STAT IV 12/25/16 21:10 12/25/16 21:24 DC 12/25/16 22:13 204 MLS/HR ECG Indication: chest pain Rate (beats per minute): 90 Rhythm: normal sinus Findings: no acute ischemic change, no ectopy ED Course 2104: The patient was evaluated in room B11B. A complete history and physical exam was performed. 2109: Ordered Promethazine HCl 12.5 mg/Sodium Chloride 50.5 ml @ 204 mls/hr IV, NSS 1000 ml @ 200 mls/hr IV, NSS 500 ml @ 999 mls/hr IV. 2114: Ordered Morphine Sulfate Inj 4 mg IV PRN. Medical Decision Differential diagnosis includes but is not limited to musculoskeletal chest pain , near-syncope, dehydration, electrolyte imbalance, pneumonia, pneumothorax, aortic dissection, PE, viral or food borne illness. There is no leukocytosis or concerning anemia. Chemistry panel and lipase testing are pending. EKG shows a normal sinus rhythm, no acute ischemia. Initial cardiac troponin did return normal. Chest x-ray shows no mediastinal widening, pneumonia or pneumothorax. On exam, the patient's chest pain did seem reproducible. The patient presents with diarrhea for 24 hours. He had a near syncopal event with nausea tonight. He was brought by EMS. He developed chest pain around the time of his near syncopal event. The patient did receive IV morphine, IV saline and IV Phenergan. He is more comfortable. The patient's care is being assumed by Dr. Michael Germain, please see his notes for the results of the pending studies. Please see his notes for the final disposition and plan. Impression Primary Impression: Central chest pain Additional Impressions: Diarrhea Dehydration Near syncope Scribe Attestation The scribe's documentation has been prepared under my direction and personally reviewed by me in its entirety. I confirm that the note above accurately reflects all work, treatment, procedures, and medical decision making performed by me. Departure Information Dispostion Still a Patient Referrals Fabricio Kelley M.D. (MEDICAL) (PCP) Patient Instructions My [facility] Problem Qualifiers
--- NOTE | 2016-12-25 21:48 | DIAGNOSTIC IMAGING REPORT ---
CHEST ONE VIEW PORTABLE CLINICAL HISTORY: CHEST PAIN dyspnea COMPARISON STUDY: 09/15/2016 FINDINGS: The bones soft tissues and hemidiaphragms are normal. The cardiomediastinal silhouette is normal. The lungs are clear. The pulmonary vasculature is normal. IMPRESSION: Negative chest. Electronically signed by: Samir Ngo M.D. 12/25/2016 9:46 PM Dictated Date/Time: 12/25/2016 9:46 PM
[2016-12-25 21:57] LABS: HEMATOCRIT 41.7 % (42-52); MEAN CELL VOLUME 80.8 fL (80-100); MEAN CORPUSCULAR HEMOGLOBIN 27.1 pg (25-34); MEAN CORPUSCULAR HGB CONC 33.6 g/dl (32-36); MEAN PLATELET VOLUME 9.8 fL (7.4-10.4); PLATELET COUNT 143 K/uL (130-400); RED BLOOD COUNT 5.16 M/uL (4.7-6.1); WHITE BLOOD COUNT 5.57 K/uL (4.8-10.8)
[2016-12-25] MEDS ORDERED: SODIUM CHLORIDE 0.9% 500ML 500 ML IV STA (22:45)
[2016-12-25 23:18] LABS: BUN/CREATININE RATIO 13.9 (10-20); CALCIUM 8.3 mg/dl (8.5-10.1); CREATININE 0.97 mg/dl (0.60-1.40); POTASSIUM 3.6 mmol/L (3.5-5.1)
[2016-12-25 23:21] LABS: ALB/GLOB RATIO 0.9 (0.9-2)
--- NOTE | 2016-12-26 01:03 | EMERGENCY ROOM VISIT NOTE ---
ED Visit Note This patient was signed out to me at shift change by Dr. Matthew. The patient was resting comfortably and was awaiting second troponin and the game plan was if the troponin was negative he can go home. The second troponin was 0. I do know him well from previous visits. He did have some chest pain today which is similar to previous noncardiac chest pain. His EKG is nonischemic appearing and symptoms are atypical for cardiac disease and I think are all most likely noncardiac. He has some diarrhea and felt lightheaded and weak. he feels much better now. He will be discharged home and follow-up with his regular doctor and return if worsening symptoms, any new problems or concerns.
[2016-12-26 01:08] VITALS: BP 137/81; PULSE 81; O2SAT 99
[2017-04-02] MEDS ORDERED: BUPR100T8 PO (16:19)
[2017-07-14] MEDS ORDERED: DOCU100C22 PO (15:52)
[2017-07-14] MEDS ORDERED: SUCR1TAB PO (16:09)
[2017-07-14] MEDS ORDERED: VNTHFA/IN INH (16:19)
== END 2016-12-26 01:10 | disposition home or self-care (01) ==
LOC: EDUNIT# 20:41 → C.EDB 20:43
DX: R07.89 Other chest pain (principal); E86.0 Dehydration; R19.7 Diarrhea, unspecified; R55 Syncope and collapse; I10 Essential (primary) hypertension; E78.5 Hyperlipidemia, unspecified; J45.909 Unspecified asthma, uncomplicated; K21.9 Gastro-esophageal reflux disease without esophagitis; F32.9 Major depressive disorder, single episode, unspecified; Z87.442 Personal history of urinary calculi; Z98.890 Other specified postprocedural states; Z87.891 Personal history of nicotine dependence; Z79.82 Long term (current) use of aspirin; Z79.899 Other long term (current) drug therapy; Z88.5 Allergy status to narcotic agent; Z91.030 Bee allergy status; Z83.3 Family history of diabetes mellitus; Z80.9 Family history of malignant neoplasm, unspecified; Z82.49 Family history of ischemic heart disease and other diseases of the circulatory system; Z84.1 Family history of disorders of kidney and ureter

== ENCOUNTER 2017-01-14 20:44 | Emergency (ER) | payer OTHER ==
[~2017-01-14] VITALS: Ht 170.2 cm; Wt 85.8 kg
[2017-01-14 20:49] VITALS: TEMP 36.7; Ht 170.2 cm; Wt 85.8 kg
[2017-01-14] MEDS ORDERED: MoRPHine SULFATE 10 MG/ML CARP/VIAL IM STA (21:04)
[2017-01-14] MEDS ORDERED: PROMETHAZINE HCL INJ 25 MG/ML 1 ML VIAL IM STA (21:04)
[2017-01-14 22:24] VITALS: BP 105/60; PULSE 65; O2SAT 95
--- NOTE | 2017-01-15 00:52 | EMERGENCY ROOM VISIT NOTE ---
ED Visit Note First contact with patient: 20:52 CHIEF COMPLAINT: Migraine headache HISTORY OF PRESENT ILLNESS: This 46-year-old male patient presented to the emergency department with a gradual onset of a severe generalized headache that started earlier today. The patient states the migraine is similar to their typical migraines. There has been associated photophobia, phonophobia, nausea and vomiting. The patient denies fever or chills recently, and there is no weakness or numbness of the extremities. There is no difficulty with speech or vision. No trauma to the head and no neck pain. The pain is severe, constant, and it is slowly increasing in severity. The patient rates the pain as dull and 8/10. The patient has taken nothing with relief. This is not the worst headache of the life and is similar to previous migraines. Previous imaging studies of the brain have been normal. REVIEW OF SYSTEMS: A review of systems was performed with positives and pertinent negatives listed in the history of present illness. All other systems were reviewed and are negative. ALLERGIES: Bee stings, codeine MEDICATIONS: No chronic medication PMH: History of chronic migraines SOCIAL HISTORY: Lives with significant other PHYSICAL EXAM: Vital Signs: Reviewed Nurse's notes, vital signs stable. GENERAL: White male, who appears in pain, but non toxic in appearance and in no acute distress. MENTAL STATUS: Alert, oriented, and coherent. HEENT: Normocephalic. PERRLA. EOMI. Nares patent without nuchal rigidity. Tympanic membranes pearly moore without erythema or effusion bilaterally. Mucous membranes moist. NECK: Supple, no nuchal rigidity, nontender, no lymphadenopathy. HEART: Regular rhythm and normal rate without murmurs, ectopy, gallops, or rubs. LUNGS: Clear to auscultation bilaterally without wheezes, rales or rhonchi. No dullness to percussion. No accessory muscle use. No retractions. SKIN: Normal. NEUROLOGICAL: Pupils are round, equal and react to light. The optic fundi are normal and the discs are flat. The patient moves all extremities well and the gait is normal. EMERGENCY DEPARTMENT COURSE: I examined the patient. The patient is on a 2 narcotic injection per month treatment plan for their migraines. The patient was given 10 mg IM morphine and 50 mg IM Phenergan per their usual protocol. The differential diagnosis includes acute intracranial bleed, meningitis, encephalitis, mass or mass effect, sinusitis, infection, tumor, headache, temporal arteritis and carbon monoxide exposure, and migraine. The patient was discharged home in stable condition with his driving. Problem List Medical Problems: (1) Asthma Status: Chronic (2) Benign hypertension Status: Chronic (3) Chronic headaches Status: Chronic (4) Depression Status: Chronic (5) GERD (gastroesophageal reflux disease) Status: Chronic (6) History of hemorrhoids Permanent Comment: s/p hemorrhoidectomy 03/03/15 Status: Chronic (7) History of kidney stones Status: Chronic (8) Hyperlipidemia Status: Chronic (9) MIGRAINE UNSPECIFIED W/O INTRACT MGRN W/O STATUS MIGRAINOSUS Status: Chronic Surgical Problems: (1) H/O colonoscopy Status: Chronic (2) H/O cystoscopy Status: Chronic (3) History of dental surgery Status: Chronic (4) History of lithotripsy Status: Chronic (5) S/P hemorrhoidectomy Permanent Comment: 03/03/2015 Status: Chronic Current/Historical Medications Scheduled Aspirin Enteric Coated (Ecotrin Or Generic), 81 MG PO DAILY Atorvastatin (Atorvastatin Calcium), 20 MG PO HS Bupropion (Wellbutrin Sr), 100 MG PO BID Carvedilol (Carvedilol), 6.25 MG PO BID Docusate Sodium (Docqlace), 100 MG PO BID Fluticasone Propionate (Flovent Hfa), 2 PUFFS INH BID Fluticasone Propionate (Fluticasone Propionate), 2 SPRAYS JAXSON DAILY Gabapentin (Gabapentin), 600 MG PO TID Lamotrigine (Lamotrigine), 100 MG PO BID Omeprazole (Prilosec), 20 MG PO DAILY Sertraline HCl (Sertraline HCl), 200 MG PO HS Sucralfate (Sucralfate), 1 GM PO ACHS Scheduled PRN Albuterol Hfa (Ventolin Hfa), 2 PUFFS INH QID PRN for Shortness of Breath Epinephrine (Epipen 2-Nathaniel), 0.3 MG IM UD PRN for ALLERGIC REACTION Allergies Coded Allergies: BEE STING (Verified Allergy, Mild, 01/14/17) Codeine (Verified Allergy, Unknown, 01/14/17) Vital Signs Date Time Temp Pulse Resp B/P Pulse Ox O2 Delivery O2 Flow Rate FiO2 01/14/17 22:24 65 18 105/60 95 01/14/17 20:49 36.7 69 18 107/67 95 Room Air Medications Administered Medications (Trade) Dose Ordered Sig/Judy Route Start Time Stop Time Status Last Admin Dose Admin Morphine Sulfate (MoRPHine SULFATE INJ) 10 mg NOW STAT IM 01/14/17 21:04 01/14/17 21:06 DC 01/14/17 21:28 10 MG Promethazine HCl (Phenergan Inj) 50 mg NOW STAT IM 01/14/17 21:04 01/14/17 21:06 DC 01/14/17 21:28 50 MG Departure Information Impression Primary Impression: Migraine Dispostion Home / Self-Care Condition GOOD Referrals Fabricio Kelley M.D. (MEDICAL) (PCP) Forms HOME CARE DOCUMENTATION FORM, IMPORTANT VISIT INFORMATION Patient Instructions My [facility] Additional Instructions You were seen and evaluated today on an emergency basis only. This is not a substitute for, or an effort to provide, complete comprehensive medical care. It is not possible to recognize and treat all injuries or illnesses in a single emergency department visit. For this reason it is recommended that you followup with your primary care physician or neurologist this week for ongoing care and evaluation. DO NOT drive, drink alcohol, operate machinery, or perform dangerous activities today. You were given medications in the ER that can affect your ability to safely function or operate a vehicle. Rest today in a quiet, peaceful, dark environment and get a full 8-10 hrs of sleep tonight. Avoid loud noises, smoke/smoking, alcohol, bright lights, stress, or physical exertion today to minimize the chance the headache may return. Continue current medications. Ibuprofen(Motrin, Advil) may be used for fever or pain. Use 600mg every six hours as needed. Take with food. Avoid using more than 2400mg in a 24 hour period. Do not use 2400mg per day for more than three consecutive days without physician direction. Prolonged inappropriate use can lead to stomach upset or ulcers. (AND/OR) Acetaminophen(Tylenol) may be used for fever or pain. Use 1000mg every six hours as needed. Avoid using more than 4000mg in a 24 hour period. Return to the ER for passing out, worsening headache, vision problems, neck stiffness/pain, fevers, vomiting, worsening of your condition, or as needed.
[2017-04-02] MEDS ORDERED: BUPR100T8 PO (16:19)
[2017-07-14] MEDS ORDERED: DOCU100C22 PO (15:52)
[2017-07-14] MEDS ORDERED: SUCR1TAB PO (16:09)
[2017-07-14] MEDS ORDERED: VNTHFA/IN INH (16:19)
== END 2017-01-14 22:24 | disposition home or self-care (01) ==
LOC: C.EDB 20:45 → C.EDD 22:24
DX: G43.909 Migraine, unspecified, not intractable, without status migrainosus (principal); I10 Essential (primary) hypertension; F32.9 Major depressive disorder, single episode, unspecified; K21.9 Gastro-esophageal reflux disease without esophagitis; E78.5 Hyperlipidemia, unspecified; J45.909 Unspecified asthma, uncomplicated; Z79.82 Long term (current) use of aspirin; Z79.899 Other long term (current) drug therapy; Z87.19 Personal history of other diseases of the digestive system

== ENCOUNTER 2017-01-23 18:28 | Emergency (ER) | payer OTHER ==
[~2017-01-23] VITALS: Ht 170.2 cm; Wt 85.1 kg
[2017-01-23 18:35] VITALS: TEMP 36.7; Ht 170.2 cm; Wt 85.1 kg
[2017-01-23] MEDS ORDERED: PROMETHAZINE HCL INJ 25 MG/ML 1 ML VIAL IM STA (18:43)
[2017-01-23] MEDS ORDERED: MoRPHine SULFATE 10 MG/ML CARP/VIAL IM STA (18:43)
--- NOTE | 2017-01-23 19:01 | EMERGENCY ROOM VISIT NOTE ---
ED Visit Note First contact with patient: 18:43 CHIEF COMPLAINT: Migraine headache HISTORY OF PRESENT ILLNESS: This 46-year-old male patient presented to the emergency department with a gradual onset of a severe generalized headache that started yesterday. There has been associated photophobia, phonophobia, nausea and vomiting. The patient denies fever or chills recently, and there is no weakness or numbness of the extremities. There is no difficulty with speech or vision. No trauma to the head and no neck pain. The pain is severe, constant, and it is slowly increasing in severity. The patient rates the pain as sharp and 8/10. The patient has taken his usual medications. This is not the worst headache of the life and is similar to previous migraines. Previous imaging studies of the brain (CT scans) have been normal. REVIEW OF SYSTEMS: An 8 system review of systems was completed with positives and pertinent negatives listed in the HPI. ALLERGIES: Codeine MEDICATIONS: Unchanged from previous PMH: Migraines SOCIAL HISTORY: The patient lives locally with family PHYSICAL EXAM: Vital Signs: Reviewed Nurse's notes, vital signs stable. MENTAL STATUS: Alert, oriented, and coherent. In great distress from the headache. NECK : Supple, no nuchal rigidity, nontender, no lymphadenopathy. HEART: Regular rhythm and normal rate without murmurs, ectopy, gallops, or rubs. SKIN: Normal. NEUROLOGICAL: Pupils are round, equal and react to light. The optic fundi are normal and the discs are flat. EOMs are full and there is no nystagmus. The patient moves all extremities well and the gait is normal. EMERGENCY DEPARTMENT COURSE: I examined the patient. The patient was given 10 mg IM morphine and 50 mg IM Phenergan with relief of their pain. The differential diagnosis includes acute intracranial bleed, meningitis, encephalitis, mass or mass effect, sinusitis, infection, tumor, headache, temporal arteritis and carbon monoxide exposure, and migraine. The patient was discharged home in stable condition with his significant other driving. DIAGNOSIS: Migraine headache DISCHARGE INSTRUCTIONS & TREATMENT: Rest at home, resume prescription medications. See your own doctor in follow-up. Medication Reconciliation: I attest that I have personally reviewed the patient' s current medication list. Blood pressure screening: The patient was found to have normal blood pressure on screening and does not require follow-up Problem List Medical Problems: (1) Asthma Status: Chronic (2) Benign hypertension Status: Chronic (3) Chronic headaches Status: Chronic (4) Depression Status: Chronic (5) GERD (gastroesophageal reflux disease) Status: Chronic (6) History of hemorrhoids Permanent Comment: s/p hemorrhoidectomy 03/03/15 Status: Chronic (7) History of kidney stones Status: Chronic (8) Hyperlipidemia Status: Chronic (9) MIGRAINE UNSPECIFIED W/O INTRACT MGRN W/O STATUS MIGRAINOSUS Status: Chronic Surgical Problems: (1) H/O colonoscopy Status: Chronic (2) H/O cystoscopy Status: Chronic (3) History of dental surgery Status: Chronic (4) History of lithotripsy Status: Chronic (5) S/P hemorrhoidectomy Permanent Comment: 03/03/2015 Status: Chronic Current/Historical Medications Scheduled Aspirin Enteric Coated (Ecotrin Or Generic), 81 MG PO DAILY Atorvastatin (Atorvastatin Calcium), 20 MG PO HS Bupropion (Wellbutrin Sr), 100 MG PO BID Carvedilol (Carvedilol), 6.25 MG PO BID Docusate Sodium (Docqlace), 100 MG PO BID Fluticasone Propionate (Flovent Hfa), 2 PUFFS INH BID Fluticasone Propionate (Fluticasone Propionate), 2 SPRAYS JAXSON DAILY Gabapentin (Gabapentin), 600 MG PO TID Lamotrigine (Lamotrigine), 100 MG PO BID Omeprazole (Prilosec), 20 MG PO DAILY Sertraline HCl (Sertraline HCl), 200 MG PO HS Sucralfate (Sucralfate), 1 GM PO ACHS Scheduled PRN Albuterol Hfa (Ventolin Hfa), 2 PUFFS INH QID PRN for Shortness of Breath Epinephrine (Epipen 2-Nathaniel), 0.3 MG IM UD PRN for ALLERGIC REACTION Allergies Coded Allergies: BEE STING (Verified Allergy, Mild, 01/14/17) Codeine (Verified Allergy, Unknown, 01/14/17) Vital Signs Date Time Temp Pulse Resp B/P (MAP) Pulse Ox O2 Delivery O2 Flow Rate FiO2 01/23/17 19:47 84 16 116/70 99 01/23/17 18:35 36.7 65 18 119/81 92 Room Air Medications Administered Medications (Trade) Dose Ordered Sig/Judy Route Start Time Stop Time Status Last Admin Dose Admin Morphine Sulfate (MoRPHine SULFATE INJ) 10 mg NOW STAT IM 01/23/17 18:43 01/23/17 18:45 DC 01/23/17 19:16 10 MG Promethazine HCl (Phenergan Inj) 50 mg NOW STAT IM 01/23/17 18:43 01/23/17 18:45 DC 01/23/17 19:16 50 MG Departure Information Impression Primary Impression: Migraine Dispostion Home / Self-Care Condition GOOD Referrals Fabricio Kelley M.D. (MEDICAL) (PCP) Patient Instructions ED Headache Migraine, [facility] Additional Instructions Rest at home, resume prescription medications. See your own doctor in follow- up. Problem Qualifiers Primary Impression: Migraine
[2017-01-23 19:47] VITALS: BP 116/70; PULSE 84; O2SAT 99
[2017-04-02] MEDS ORDERED: BUPR100T8 PO (16:19)
[2017-07-14] MEDS ORDERED: DOCU100C22 PO (15:52)
[2017-07-14] MEDS ORDERED: SUCR1TAB PO (16:09)
[2017-07-14] MEDS ORDERED: VNTHFA/IN INH (16:19)
== END 2017-01-23 19:47 | disposition home or self-care (01) ==
LOC: C.EDB 18:29 → C.EDD 19:47
DX: G43.909 Migraine, unspecified, not intractable, without status migrainosus (principal); R11.2 Nausea with vomiting, unspecified; I10 Essential (primary) hypertension; E78.5 Hyperlipidemia, unspecified; K21.9 Gastro-esophageal reflux disease without esophagitis; Z79.899 Other long term (current) drug therapy

== ENCOUNTER 2017-02-11 20:50 | Emergency (ER) | payer OTHER ==
[~2017-02-11] VITALS: Ht 170.2 cm; Wt 87.2 kg
[2017-02-11 20:54] VITALS: BP 126/85; PULSE 64; TEMP 36.6; O2SAT 97; Ht 170.2 cm; Wt 87.2 kg
[2017-02-11] MEDS ORDERED: PROMETHAZINE HCL INJ 25 MG/ML 1 ML VIAL IM STA (21:15)
[2017-02-11] MEDS ORDERED: MoRPHine SULFATE 10 MG/ML CARP/VIAL IM STA (21:15)
--- NOTE | 2017-02-11 22:01 | EMERGENCY ROOM VISIT NOTE ---
ED Visit Note First contact with patient: 21:01 I have seen and examined this patient with Harry Wilson and generally agree with the treatment plan as discussed. Problem List Medical Problems: (1) Asthma Status: Chronic (2) Benign hypertension Status: Chronic (3) Chronic headaches Status: Chronic (4) Depression Status: Chronic (5) GERD (gastroesophageal reflux disease) Status: Chronic (6) History of hemorrhoids Permanent Comment: s/p hemorrhoidectomy 03/03/15 Status: Chronic (7) History of kidney stones Status: Chronic (8) Hyperlipidemia Status: Chronic (9) MIGRAINE UNSPECIFIED W/O INTRACT MGRN W/O STATUS MIGRAINOSUS Status: Chronic Surgical Problems: (1) H/O colonoscopy Status: Chronic (2) H/O cystoscopy Status: Chronic (3) History of dental surgery Status: Chronic (4) History of lithotripsy Status: Chronic (5) S/P hemorrhoidectomy Permanent Comment: 03/03/2015 Status: Chronic Current/Historical Medications Scheduled Aspirin Enteric Coated (Ecotrin Or Generic), 81 MG PO DAILY Atorvastatin (Atorvastatin Calcium), 20 MG PO HS Bupropion (Wellbutrin Sr), 100 MG PO BID Carvedilol (Carvedilol), 6.25 MG PO BID Docusate Sodium (Docqlace), 100 MG PO BID Fluticasone Propionate (Flovent Hfa), 2 PUFFS INH BID Fluticasone Propionate (Fluticasone Propionate), 2 SPRAYS JAXSON DAILY Gabapentin (Gabapentin), 600 MG PO TID Lamotrigine (Lamotrigine), 100 MG PO BID Omeprazole (Prilosec), 20 MG PO DAILY Sertraline HCl (Sertraline HCl), 200 MG PO HS Sucralfate (Sucralfate), 1 GM PO ACHS Scheduled PRN Albuterol Hfa (Ventolin Hfa), 2 PUFFS INH QID PRN for Shortness of Breath Epinephrine (Epipen 2-Nathaniel), 0.3 MG IM UD PRN for ALLERGIC REACTION Allergies Coded Allergies: BEE STING (Verified Allergy, Mild, 01/14/17) Codeine (Verified Allergy, Unknown, 01/14/17) Vital Signs Date Time Temp Pulse Resp B/P (MAP) Pulse Ox O2 Delivery O2 Flow Rate FiO2 02/11/17 20:54 36.6 64 16 126/85 97 Room Air Medications Administered Medications (Trade) Dose Ordered Sig/Judy Route Start Time Stop Time Status Last Admin Dose Admin Morphine Sulfate (MoRPHine SULFATE INJ) 10 mg NOW STAT IM 02/11/17 21:15 02/11/17 21:17 DC 02/11/17 21:34 10 MG Promethazine HCl (Phenergan Inj) 50 mg NOW STAT IM 02/11/17 21:15 02/11/17 21:17 DC 02/11/17 21:34 50 MG Departure Information Impression Primary Impression: Migraine Dispostion Home / Self-Care Referrals No Doctor, Assigned (PCP) Forms HOME CARE DOCUMENTATION FORM, IMPORTANT VISIT INFORMATION Patient Instructions My [facility] Additional Instructions Rest at home in a quiet darkened room and allow the medication to work for the pain. Continue to follow up current treatment plan prescribed by your physician for your migraine headaches. See your own doctor in follow-up this week for continued care and treatment. Return to the ED for worsening/uncontrolled headache, fevers, abnormal neurological symptoms, as needed or in accordance with your pain management plan or any new/concerning symptoms.
--- NOTE | 2017-02-12 23:01 | EMERGENCY ROOM VISIT NOTE ---
ED Visit Note First contact with patient: 21:01 CHIEF COMPLAINT: Migraine headache. HISTORY OF PRESENT ILLNESS: Mr. Gregg is a 46 year-old white male who ambulates into the ED complaining of a migraine headache. He reports a gradual onset of a severe migraine headache that started approximately 9.5 hours ago. The pain is constant and it is slowly increasing in severity. This is not the worst headache of the life and is similar to previous migraines. Currently he describes the headache as a pressure and throbbing sensation/pain in the bilateral frontal and temporal areas. He rates the pain a 8/10. The pain is nonradiating. He reports taking aspirin without relief of pain. His pain worsens with exposure to light. He has not identified any alleviating factors related to the pain. There is been associated light sensitivity, nausea but no vomiting. He denies recent head trauma, fevers, chills, sweats, skin eruptions, skin color changes, dizziness, lightheadedness, abnormal neurological symptoms, back pain/stiffness, sore throats, sinus congestions, recent dental work, chest pain, shortness of breath, abdominal pain, extremity weakness/numbness/tingling, visual changes, hearing changes, difficulty speaking , difficulty swallowing, difficulty ambulating/coordinating body movements. REVIEW OF SYSTEMS: As noted above in history of present illness: all by systems were reviewed with the patient and one found to be negative unless noted above otherwise. PAST MEDICAL HISTORY: , Chronic migraine headaches, asthma, pneumonia, hypertension, dyslipidemia, GERD, kidney stones, depression, status post lithotripsy, hemorrhoidectomy and unspecified dental surgeries. CURRENT MEDICATIONS: Medications Dose Route/Sig Max Daily Dose Days Date Category Dose Instructions Sucralfate 1 Gm Tab 1 Gm PO ACHS 09/15/16 Reported TAKE THIS MEDICATION 30 MINUTES BEFORE MEALS AND BEDTIME Wellbutrin Sr (Bupropion HCl) 100 Mg Ertab 100 Mg PO BID 07/24/16 Reported Ventolin Hfa (Albuterol) 200 Puffs/52736 Mcg Aers 2 Puffs INH QID PRN 07/24/16 Reported Docqlace (Docusate Sodium) 100 Mg Cap 100 Mg PO BID 02/08/16 Reported Fluticasone Propionate 120 Sprays/6000 Mcg Inha 2 Sprays JAXSON DAILY 11/26/15 Reported Carvedilol 6.25 Mg Tab 6.25 Mg PO BID 06/10/14 Reported TAKE THIS MEDICATION WITH FOOD Atorvastatin Calcium (Atorvastatin) 20 Mg Tab 20 Mg PO HS 05/06/14 Reported Lamotrigine 100 Mg Tab 100 Mg PO BID 05/06/14 Reported Gabapentin 600 Mg Tab 600 Mg PO TID 05/06/14 Reported Flovent Hfa (Fluticasone Propionate) 120 Puffs/32284 Mcg Aero 2 Puffs INH BID 05/06/14 Reported Prilosec (Omeprazole) 20 Mg Cap 20 Mg PO DAILY 05/06/14 Reported TAKE THIS MEDICATION ONCE DAILY ONE HOUR BEFORE FIRST MEAL OF THE DAY Epipen 2-Nathaniel (Epinephrine) 0.3 Mg Inj 0.3 Mg IM UD PRN 05/06/14 Reported Sertraline HCl 100 Mg Tab 200 Mg PO HS 05/06/14 Reported TAKE THIS MEDICATION ONE HOUR BEFORE BEDTIME. Ecotrin Or Generic (Aspirin) 81 Mg Tab 81 Mg PO DAILY 05/30/12 Reported ALLERGIES TO MEDICATIONS: Codeine. SOCIAL HISTORY: Patient is not currently employed; he feels safe in his home environment; he denies tobacco use. PHYSICAL EXAM: Vital Signs: Date Time Temp Pulse Resp B/P (MAP) Pulse Ox O2 Delivery O2 Flow Rate FiO2 02/11/17 20:54 36.6 64 16 126/85 97 Room Air GENERAL: 46 year-old male in mild to moderate distress due to pain, afebrile and hemodynamically stable. Found lying in a darkened room. NEUROLOGIC: Awake, alert and oriented to person place and time. Answering questions appropriately and following commands. Normal gait. Good hand eye coordination. Cranial nerves II through XII grossly intact. No focal motor or sensory deficits. Good short-term and long-term recall. SKIN: Warm, dry and pink. No rashes, lesions or soft tissue trauma noted. HEENT: Normocephalic, atraumatic. PERRLA; positive light sensitivity precluding funduscopic examination. EOMI without nystagmus. Sclerae white and conjunctiva is pink. No drainage from the nostrils. Oral cavity is moist and pink. Airway is patent. Speech is normal. Uvula is midline and no abscesses are seen. No posterior pharyngeal erythema or edema. No JVD. Trachea midline BACK. NECK: No tenderness over the cervical, thoracic and lumbar spine. No tenderness throughout the paraspinous muscles. No meningismus. Full range of motion of the cervical spine. No CVA tenderness. THORAX: Lungs clear to auscultation and equal bilaterally with no wheezing, crackles, rhonchi or stridor and equal chest wall movements. HEART: Regular rate and rhythm with no murmurs, rubs or gallops. ABDOMEN: Soft and nontender with bowel sounds present in all quadrants; no rigidity, rebound tenderness, organomegaly or guarding. MUSCULOSKELETAL: Moves all extremities well on command and with purpose. All distal neurovascular statuses are intact and equal bilaterally. ED COURSE: Patient is assessed as noted above. Patient's medication list was reviewed. Patient was given 10 mg of morphine IM and 50 mg of Phenergan IM. Patient was educated about his condition and instructed on his treatment plan; he verbalized understanding and agreement with this plan. CLINICAL IMPRESSION: Migraine headache. DECISION MAKIN-year-old male who presents for evaluation of headache. He is afebrile, well appearing, and hemodynamically stable. He has no signs of a sinus, dental, or ear infection and no evidence of meningismus. He is neurologically intact. I do not suspect a headache to be secondary to a subarachnoid hemorrhage, meningitis, encephalitis, or intracranial mass lesion. DISPOSITION: Patient was discharged to home in stable condition; prior to discharge she was reassessed and subjectively reported he was feeling better and rated his discomfort 4/10. DISCHARGE INSTRUCTIONS: Rest at home, in a quiet darkened room and allow the medication to work for the pain. Continue to follow up current treatment plan prescribed by your physician for your migraine headaches. See your own doctor in follow-up this week for continued care and treatment. Return to the ED for worsening/uncontrolled pain, fevers, abnormal neurological symptoms, vomiting, as needed or in accordance with his pain management plan or any new/concerning symptoms.
[2017-04-02] MEDS ORDERED: BUPR100T8 PO (16:19)
[2017-07-14] MEDS ORDERED: DOCU100C22 PO (15:52)
[2017-07-14] MEDS ORDERED: SUCR1TAB PO (16:09)
[2017-07-14] MEDS ORDERED: VNTHFA/IN INH (16:19)
== END 2017-02-11 22:03 | disposition home or self-care (01) ==
LOC: C.EDB 20:51 → C.EDD 22:03
DX: G43.909 Migraine, unspecified, not intractable, without status migrainosus (principal); J45.909 Unspecified asthma, uncomplicated; Z87.01 Personal history of pneumonia (recurrent); I10 Essential (primary) hypertension; E78.5 Hyperlipidemia, unspecified; K21.9 Gastro-esophageal reflux disease without esophagitis; Z87.442 Personal history of urinary calculi; F32.9 Major depressive disorder, single episode, unspecified; Z79.82 Long term (current) use of aspirin; Z79.899 Other long term (current) drug therapy

== ENCOUNTER 2017-02-27 14:16 | Emergency (ER) | payer OTHER ==
[~2017-02-27] VITALS: Ht 170.2 cm; Wt 87.0 kg
[2017-02-27 14:17] VITALS: TEMP 36.6; Ht 170.2 cm; Wt 87.0 kg
[2017-02-27] MEDS ORDERED: PROMETHAZINE HCL INJ 25 MG/ML 1 ML VIAL IM STA (14:55)
[2017-02-27] MEDS ORDERED: MoRPHine SULFATE 10 MG/ML CARP/VIAL IM STA (14:55)
--- NOTE | 2017-02-27 15:07 | EMERGENCY ROOM VISIT NOTE ---
ED Visit Note First contact with patient: 14:22 CHIEF COMPLAINT: Migraine headache HISTORY OF PRESENT ILLNESS: This 46-year-old male patient presented to the emergency department with a gradual onset of a severe generalized headache that started ambulatory. There has been associated photophobia, phonophobia, nausea and vomiting. The patient denies fever or chills recently, and there is no weakness or numbness of the extremities. There is no difficulty with speech or vision. No trauma to the head and no neck pain. The pain is severe, constant, and it is slowly increasing in severity. The patient rates the pain as severe and 7/10. The patient has taken his usual medications. This is not the worst headache of the life and is similar to previous migraines. Previous imaging studies of the brain (CT scans) have been normal. REVIEW OF SYSTEMS: An 8 system review of systems was completed with positives and pertinent negatives listed in the HPI. ALLERGIES: Codeine MEDICATIONS: Unchanged from previous PMH: Unchanged from previous SOCIAL HISTORY: The patient lives with his significant other PHYSICAL EXAM: Vital Signs: Reviewed Nurse's notes, vital signs stable. MENTAL STATUS: Alert, oriented, and coherent. In great distress from the headache. NECK : Supple, no nuchal rigidity, nontender, no lymphadenopathy. HEART: Regular rhythm and normal rate without murmurs, ectopy, gallops, or rubs. SKIN: Normal. NEUROLOGICAL: Pupils are round, equal and react to light. The optic fundi are normal and the discs are flat. EOMs are full and there is no nystagmus. The patient moves all extremities well and the gait is normal. EMERGENCY DEPARTMENT COURSE: I examined the patient. The patient was given 10 mg IM morphine and 50 mg IM Phenergan with relief of their pain. The differential diagnosis includes acute intracranial bleed, meningitis, encephalitis, mass or mass effect, sinusitis, infection, tumor, headache, temporal arteritis and carbon monoxide exposure, and migraine. The patient was discharged home in stable condition with his significant other driving. DIAGNOSIS: Migraine headache DISCHARGE INSTRUCTIONS & TREATMENT: Rest at home, resume prescription medications. See your own doctor in follow-up. Problem List Medical Problems: (1) Asthma Status: Chronic (2) Benign hypertension Status: Chronic (3) Chronic headaches Status: Chronic (4) Depression Status: Chronic (5) GERD (gastroesophageal reflux disease) Status: Chronic (6) History of hemorrhoids Permanent Comment: s/p hemorrhoidectomy 03/03/15 Status: Chronic (7) History of kidney stones Status: Chronic (8) Hyperlipidemia Status: Chronic (9) MIGRAINE UNSPECIFIED W/O INTRACT MGRN W/O STATUS MIGRAINOSUS Status: Chronic Surgical Problems: (1) H/O colonoscopy Status: Chronic (2) H/O cystoscopy Status: Chronic (3) History of dental surgery Status: Chronic (4) History of lithotripsy Status: Chronic (5) S/P hemorrhoidectomy Permanent Comment: 03/03/2015 Status: Chronic Current/Historical Medications Scheduled Aspirin Enteric Coated (Ecotrin Or Generic), 81 MG PO DAILY Atorvastatin (Atorvastatin Calcium), 20 MG PO HS Bupropion (Wellbutrin Sr), 100 MG PO BID Carvedilol (Carvedilol), 6.25 MG PO BID Docusate Sodium (Docqlace), 100 MG PO BID Fluticasone Propionate (Flovent Hfa), 2 PUFFS INH BID Fluticasone Propionate (Fluticasone Propionate), 2 SPRAYS JAXSON DAILY Gabapentin (Gabapentin), 600 MG PO TID Lamotrigine (Lamotrigine), 100 MG PO BID Omeprazole (Prilosec), 20 MG PO DAILY Sertraline HCl (Sertraline HCl), 200 MG PO HS Sucralfate (Sucralfate), 1 GM PO ACHS Scheduled PRN Albuterol Hfa (Ventolin Hfa), 2 PUFFS INH QID PRN for Shortness of Breath Epinephrine (Epipen 2-Nathaniel), 0.3 MG IM UD PRN for ALLERGIC REACTION Allergies Coded Allergies: BEE STING (Verified Allergy, Mild, 02/27/17) Codeine (Verified Allergy, Unknown, 02/27/17) Vital Signs Date Time Temp Pulse Resp B/P (MAP) Pulse Ox O2 Delivery O2 Flow Rate FiO2 02/27/17 15:11 70 18 124/83 96 Room Air 02/27/17 14:17 36.6 80 16 129/87 98 Room Air Medications Administered Medications (Trade) Dose Ordered Sig/Judy Route Start Time Stop Time Status Last Admin Dose Admin Morphine Sulfate (MoRPHine SULFATE INJ) 10 mg NOW STAT IM 02/27/17 14:55 02/27/17 14:56 DC 02/27/17 15:13 10 MG Promethazine HCl (Phenergan Inj) 50 mg NOW STAT IM 02/27/17 14:55 02/27/17 14:56 DC 02/27/17 14:55 50 MG Departure Information Impression Primary Impression: Headache Dispostion Home / Self-Care Condition GOOD Referrals No Doctor, Assigned (PCP) Patient Instructions My [facility] Additional Instructions Rest at home, resume prescription medications. See your own doctor in follow- up.
[2017-02-27 15:11] VITALS: BP 124/83; PULSE 70; O2SAT 96
[2017-04-02] MEDS ORDERED: DOCU100C22 PO (15:52)
[2017-04-02] MEDS ORDERED: SUCR1TAB PO (16:09)
[2017-04-02] MEDS ORDERED: BUPR100T8 PO (16:19)
[2017-04-02] MEDS ORDERED: VNTHFA/IN INH (16:19)
[2017-04-02] MEDS ORDERED: LAMO1TAB21 PO (20:51)
[2017-04-02] MEDS ORDERED: ZLF/100 PO (20:51)
[2017-04-02] MEDS ORDERED: FLVHFA110 INH (20:51)
[2017-04-02] MEDS ORDERED: NRN600 PO (20:51)
[2017-04-02] MEDS ORDERED: LPT/20 PO (20:51)
[2017-04-02] MEDS ORDERED: OMEP20CA9 PO (20:51)
[2017-04-02] MEDS ORDERED: EPP3/2 IM (20:51)
[2017-04-02] MEDS ORDERED: CRG625 PO (21:19)
[2017-04-02] MEDS ORDERED: FLNIN/ NAE (21:19)
[2017-04-02] MEDS ORDERED: ASPI81TA21 PO (22:37)
== END 2017-02-27 15:36 | disposition home or self-care (01) ==
LOC: C.EDB 14:16 → C.EDD 15:36
DX: R51 Headache (principal); J45.909 Unspecified asthma, uncomplicated; F32.9 Major depressive disorder, single episode, unspecified; K21.9 Gastro-esophageal reflux disease without esophagitis; E78.5 Hyperlipidemia, unspecified; Z79.82 Long term (current) use of aspirin

== ENCOUNTER 2017-04-02 19:39 | Emergency (ER) | payer OTHER ==
[~2017-04-02] VITALS: Ht 170.2 cm; Wt 88.7 kg
[~2017-04-02 19:39] MED LIST changes: +BUPR100T8 PO; -LCTX PO
[2017-04-02 19:45] VITALS: TEMP 36.7; Ht 170.2 cm; Wt 88.7 kg
[2017-04-02] MEDS ORDERED: MoRPHine SULFATE 10 MG/ML CARP/VIAL IM STA (20:02)
[2017-04-02] MEDS ORDERED: PROMETHAZINE HCL INJ 25 MG/ML 1 ML VIAL IM STA (20:02)
[2017-04-02 20:39] VITALS: BP 131/71; PULSE 70; O2SAT 97
--- NOTE | 2017-04-02 21:39 | EMERGENCY ROOM VISIT NOTE ---
ED Visit Note First contact with patient: 19:48 CHIEF COMPLAINT: Migraine headache HISTORY OF PRESENT ILLNESS: This 46-year-old white male complains of gradual onset of a severe generalized headache that started this morning when he awoke. He states he was helping to put in a transmission in a vehicle yesterday and spent a prolonged time working over his head. There has been associated nausea but no vomiting. The patient denies fever or chills recently, and denies any other cold symptoms. There is no weakness or numbness of the extremities. There is no difficulty with speech, hearing, or vision. No trauma to the head and no neck pain. The pain is severe, constant, and has been slowly increasing in severity. They are photophobic and phonophobic. This is not the worst headache of [] life and is similar to previous migraines. Pain is 8/10. Patient is well known to the ED for frequent migraine headaches. REVIEW OF SYSTEMS: Ears: No pain or change in hearing. Neck: No pain, stiffness, or swelling. Neurological: No changes in mental status, vertigo, focal weakness, numbness. Cardiac: No chest pain, diaphoresis, dyspnea on exertion, orthopnea, pedal edema, or palpitations. Respiratory: No cough, change in sputum, wheezes, hemoptysis, or stridor. Gastrointestinal: No abdominal pain, blood in stools, diarrhea, or loss of appetite. Skin: No rash , new lesions, or masses. General: No fever or chills, fatigue, loss of appetite, or significant recent weight gain or loss. PMH: Supplemental sheet was not completed. Previous surgeries: Reviewed and filed in chart Medical history: Reviewed and filed in chart Family history: Noncontributory SOCIAL HISTORY: Unemployed. No EtOH use. Single. Allergies: Codeine Current Medications: Extensive list reviewed and filed in chart PHYSICAL EXAM: Vital Signs: Afebrile. Reviewed and filed in patient's chart MENTAL STATUS: Alert, oriented, and coherent. In obvious discomfort from the headache. No acute distress. Skin:Warm and dry with good turgor. No rashes or lesions. No ecchymosis or erythema. The patient is not diaphoretic. No abrasions. HEENT:Normocephalic atraumatic. Eyes PERRLA, EOMI. No conjunctiva or scleral injection. They are light sensative. Ears TMs intact bilaterally with good light reflexes. No erythema or bulging. No hemotympanum. Canals are patent. Nares patent bilaterally without turbinate enlargement. No significant drainage. Oropharynx without erythema or exudate. Uvula midline, oral mucosa moist. No lesions present. Edentulous. NECK: Supple, nontender, no nuchal rigidity. HEART: Regular rhythm and normal rate without murmurs, ectopy, gallops, or rubs. Peripheral pulses are 2+. LUNGS: Lungs are clear to auscultation. No crackles rhonchi or wheezing. Good air movement. The patient is able to take a deep breath. Abdomen: Bowel sounds present x4. Soft, nontender to palpation. No organomegaly. No masses noted. NEUROLOGIC: The patient moves all extremities well and the gait is normal. Cranial nerves 2 through 12 are intact. Gross sensation is intact across the upper and lower extremities via soft touch. EMERGENCY DEPARTMENT COURSE: The patient was educated regarding today's findings. Conservative care measures were discussed. The patient was given morphine 10 mg IM and Phenergan 50 mg IM for the headache with some relief of the pain and nausea. I do not suspect intracranial bleed, encephalitis, or meningitis. DIAGNOSIS: Migraine headache DISCHARGE INSTRUCTIONS & TREATMENT: Patient was given Phenergan 50 mg IM and morphine 10 mg IM for nausea and pain control. Rest at home in a quiet, dark room. Driving precautions were reviewed. Take his usual oral medication for any breakthrough pain. See your own doctor in follow-up. Maintain hydration. Return to the ER for any acute changes in mental status. Migraine headache handout was provided. Problem List Medical Problems: (1) Asthma Status: Chronic (2) Benign hypertension Status: Chronic (3) Chronic headaches Status: Chronic (4) Depression Status: Chronic (5) GERD (gastroesophageal reflux disease) Status: Chronic (6) History of hemorrhoids Permanent Comment: s/p hemorrhoidectomy 03/03/15 Status: Chronic (7) History of kidney stones Status: Chronic (8) Hyperlipidemia Status: Chronic (9) MIGRAINE UNSPECIFIED W/O INTRACT MGRN W/O STATUS MIGRAINOSUS Status: Chronic Surgical Problems: (1) H/O colonoscopy Status: Chronic (2) H/O cystoscopy Status: Chronic (3) History of dental surgery Status: Chronic (4) History of lithotripsy Status: Chronic (5) S/P hemorrhoidectomy Permanent Comment: 03/03/2015 Status: Chronic Current/Historical Medications Scheduled Aspirin Enteric Coated (Ecotrin Or Generic), 81 MG PO DAILY Atorvastatin (Atorvastatin Calcium), 20 MG PO HS Bupropion (Wellbutrin Sr), 100 MG PO BID Carvedilol (Carvedilol), 6.25 MG PO BID Docusate Sodium (Docqlace), 100 MG PO BID Fluticasone Propionate (Flovent Hfa), 2 PUFFS INH BID Fluticasone Propionate (Fluticasone Propionate), 2 SPRAYS JAXSON DAILY Gabapentin (Gabapentin), 600 MG PO TID Lamotrigine (Lamotrigine), 100 MG PO BID Omeprazole (Prilosec), 20 MG PO DAILY Sertraline HCl (Sertraline HCl), 200 MG PO HS Sucralfate (Sucralfate), 1 GM PO ACHS Scheduled PRN Albuterol Hfa (Ventolin Hfa), 2 PUFFS INH QID PRN for Shortness of Breath Epinephrine (Epipen 2-Nathaniel), 0.3 MG IM UD PRN for ALLERGIC REACTION Allergies Coded Allergies: BEE STING (Verified Allergy, Mild, 02/27/17) Codeine (Verified Allergy, Unknown, 02/27/17) Vital Signs Date Time Temp Pulse Resp B/P (MAP) Pulse Ox O2 Delivery O2 Flow Rate FiO2 04/02/17 20:39 70 18 131/71 97 04/02/17 19:45 36.7 79 18 140/87 96 Room Air Medications Administered Medications (Trade) Dose Ordered Sig/Judy Route Start Time Stop Time Status Last Admin Dose Admin Morphine Sulfate (MoRPHine SULFATE INJ) 10 mg NOW STAT IM 04/02/17 20:02 04/02/17 20:04 DC 04/02/17 20:18 10 MG Promethazine HCl (Phenergan Inj) 50 mg NOW STAT IM 04/02/17 20:02 04/02/17 20:04 DC 04/02/17 20:19 50 MG Departure Information Impression Primary Impression: Migraine Dispostion Home / Self-Care Referrals No Doctor, Assigned (PCP) Forms HOME CARE DOCUMENTATION FORM, IMPORTANT VISIT INFORMATION Patient Instructions My [facility] Additional Instructions Rest in a quiet dark room No driving for the next 6 hours Follow-up with your PCP as needed Maintain hydration Return to the ED for any acute change in symptoms
[2017-06-03] MEDS ORDERED: DOCU100C22 PO (15:52)
[2017-06-03] MEDS ORDERED: SUCR1TAB PO (16:09)
[2017-06-03] MEDS ORDERED: VNTHFA/IN INH (16:19)
== END 2017-04-02 20:39 | disposition home or self-care (01) ==
LOC: C.EDB 19:40 → C.EDD 20:39
DX: G43.909 Migraine, unspecified, not intractable, without status migrainosus (principal); J45.909 Unspecified asthma, uncomplicated; I10 Essential (primary) hypertension; F32.9 Major depressive disorder, single episode, unspecified; E78.5 Hyperlipidemia, unspecified; K21.9 Gastro-esophageal reflux disease without esophagitis; Z87.442 Personal history of urinary calculi; Z98.818 Other dental procedure status; Z98.890 Other specified postprocedural states; Z79.82 Long term (current) use of aspirin; Z79.899 Other long term (current) drug therapy

== ENCOUNTER 2017-06-03 20:29 | Emergency (ER) | payer OTHER ==
[~2017-06-03] VITALS: Ht 170.2 cm; Wt 90.2 kg
[~2017-06-03 20:29] MED LIST changes: +DOCU100C22 PO; +SUCR1TAB PO; +VNTHFA/IN INH
[2017-06-03 20:36] VITALS: TEMP 36.8; Ht 170.2 cm; Wt 90.2 kg
[2017-06-03] MEDS ORDERED: LAMO1TAB21 PO (20:51)
[2017-06-03] MEDS ORDERED: EPP3/2 IM (20:51)
[2017-06-03] MEDS ORDERED: OMEP20CA9 PO (20:51)
[2017-06-03] MEDS ORDERED: ZLF/100 PO (20:51)
[2017-06-03] MEDS ORDERED: FLVHFA110 INH (20:51)
[2017-06-03] MEDS ORDERED: LPT/20 PO (20:51)
[2017-06-03] MEDS ORDERED: NRN600 PO (20:51)
[2017-06-03] MEDS ORDERED: MoRPHine SULFATE 4 MG/ML 1 ML CARP\\VIAL IV STA ×2 (21:18→23:25)
[2017-06-03] MEDS ORDERED: ONDANSETRON INJ 2 MG/ML 2 ML VIAL IV STA (21:18)
[2017-06-03] MEDS ORDERED: SODIUM CHLORIDE 0.9% 1000ML 1,000 ML IV STA (21:18)
[2017-06-03] MEDS ORDERED: SODIUM CHLORIDE 0.9% 1000ML 1,000 ML IV ONE (21:18)
[2017-06-03] MEDS ORDERED: FLNIN/ NAE (21:19)
[2017-06-03] MEDS ORDERED: CRG625 PO (21:19)
[2017-06-03] MEDS ORDERED: WLLSR100 PO (21:23)
[2017-06-03] MEDS ORDERED: ACET-1256 PO (21:26)
[2017-06-03 21:28] LABS: BASO % 0.3 %; BASO ABS # 0.02 K/uL (0-0.2); COMPLETE YES; EOS % 0.8 %; HEMATOCRIT 39.2 % (42-52); IG% 0.1 %; LYMPH % 24.5 %; MEAN CELL VOLUME 82.2 fL (80-100); MEAN CORPUSCULAR HEMOGLOBIN 28.9 pg (25-34); MEAN CORPUSCULAR HGB CONC 35.2 g/dl (32-36); MEAN PLATELET VOLUME 9.6 fL (7.4-10.4); NEUT % 66.3 %; PLATELET COUNT 200 K/uL (130-400); RED BLOOD COUNT 4.77 M/uL (4.7-6.1); WHITE BLOOD COUNT 7.36 K/uL (4.8-10.8)
[2017-06-03] MEDS ORDERED: OPTIRAY 320 IV PRN (21:30)
[2017-06-03 21:42] LABS: ALT/SGPT 51 U/L (12-78); BLOOD UREA NITROGEN 10 mg/dl (7-18); BUN/CREATININE RATIO 10.3 (10-20); CALCIUM 8.9 mg/dl (8.5-10.1); CARBON DIOXIDE 28 mmol/L (21-32); CHLORIDE 104 mmol/L (98-107); CREATININE 0.93 mg/dl (0.60-1.40); GLUCOSE 99 mg/dl (70-99); POTASSIUM 3.6 mmol/L (3.5-5.1); SODIUM 138 mmol/L (136-145)
[2017-06-03 21:45] LABS: ALKALINE PHOSPHATASE 156 U/L (45-117); AST/SGOT 31 U/L (15-37)
[2017-06-03 21:52] LABS: MANUAL MICROSCOPIC REQUIRED? NO; REVIEW REQ? NO; URINE APPEARANCE CLEAR (CLEAR); URINE BILIRUBIN NEG (NEG); URINE COLOR YELLOW; URINE EPITHELIAL CELL AUTO 0-5 /lpf (0-5); URINE NITRITE NEG (NEG); URINE SPECIFIC GRAVITY 1.016 (1.000-1.030); UROBILINOGEN NEG (NEG)
[2017-06-03] MEDS ORDERED: ASPI81TA21 PO (22:37)
--- NOTE | 2017-06-03 22:58 | DIAGNOSTIC IMAGING REPORT ---
CT SCAN OF THE ABDOMEN AND PELVIS WITH IV CONTRAST CLINICAL HISTORY: Left lower quadrant abdominal pain. COMPARISON STUDY: Abdominal CT dated 01/24/2016. TECHNIQUE: Following the IV administration of 93 cc of Optiray 320, CT scan of the abdomen and pelvis is performed from the lung bases to the proximal femora. Images are reviewed in the axial, sagittal, and coronal planes. IV contrast was administered without complication. A dose lowering technique was utilized adhering to the principles of ALARA. CT DOSE: 551.18 mGy.cm FINDINGS: Lung bases: The heart is top normal in size and without pericardial effusion. The lung bases are clear noting dependent atelectasis. There is a tiny hiatal hernia. Liver: The contrast-enhanced liver is normal in size, contour, and attenuation. There is no intrahepatic biliary ductal dilatation. The hepatic veins and portal veins are patent. Gallbladder: Unremarkable. Spleen: Normal in size and attenuation. Pancreas: Unremarkable. Adrenal glands: Unremarkable. Kidneys: The contrast enhanced kidneys are normal in size and without hydronephrosis. There is a 12 mm nonobstructing right renal calculus. The kidneys enhance symmetrically. Abdominal vasculature: The abdominal aorta is normal in course and caliber. Bowel: The small bowel and colon are normal in course and caliber. The appendix is well-visualized and normal. Peritoneum: There is no intraperitoneal free air or abdominal ascites. There is a small fat-containing umbilical hernia. Lymphadenopathy: None. Pelvic viscera: The bladder, prostate, and seminal vesicles are normal as visualized. Skeletal structures: No lytic or blastic lesions are seen. IMPRESSION: 1. There are no acute infectious or inflammatory findings in the abdomen or pelvis. 2. Nonobstructing right renal calculus. Electronically signed by: Blade Madison M.D. 06/03/2017 10:56 PM Dictated Date/Time: 06/03/2017 10:52 PM
[2017-06-04 00:18] VITALS: BP 111/70; PULSE 68; O2SAT 99
--- NOTE | 2017-06-04 01:32 | EMERGENCY ROOM VISIT NOTE ---
History Report prepared by Meagan: Whitney Christine Under the Supervision of: Dr. Michael Germain M.D. First contact with patient: 21:10 Chief Complaint: ABDOMINAL PAIN Stated Complaint: PAIN IN LEFT SIDE History of Present Illness The patient is a 47 year old male who presents to the Emergency Room with complaints of left sided abdominal pain beginning 4 days ago. The patient states that his pain has been radiating into his abdomen and back and has significantly worsened today. He notes that he has had to strain more to move his bowels and occasionally has blood with his stool when he strains. The patient denies any urinary symptoms, testicle pain, groin pain, chest pain, shortness of breath, and headache. He denies any history of diverticulitis, Source of History: patient Onset: 4 days ago Position: abdomen Timing: constant Associated Symptoms: + abdominal pain, + back pain, No chest pain, No SOB, No urinary symptoms Note: The patient denies any testicle pain, groin pain. Review of Systems See HPI for pertinent positives & negatives. A total of 10 systems reviewed and were otherwise negative. Past Medical & Surgical Medical Problems: (1) Aspiration pneumonia (2) Asthma (3) Benign hypertension (4) Chest pain (5) Chronic headaches (6) Depression (7) GERD (gastroesophageal reflux disease) (8) History of hemorrhoids (9) History of kidney stones (10) Hyperlipidemia (11) MIGRAINE UNSPECIFIED W/O INTRACT MGRN W/O STATUS MIGRAINOSUS Surgical Problems: (1) H/O colonoscopy (2) H/O cystoscopy (3) History of dental surgery (4) History of lithotripsy (5) S/P hemorrhoidectomy Old medical records were reviewed. Nurse's notes were reviewed and I agree with. Family History Asthma Diabetes mellitus SISTER AUNT FH: cancer FATHER Hypertension Kidney disease Social History Smoking Status: Never Smoker Alcohol Use: none Drug Use: none Marital Status: in relationship Housing Status: lives with significant other Occupation Status: disabled Current/Historical Medications Scheduled Aspirin Enteric Coated (Ecotrin Or Generic), 81 MG PO DAILY Atorvastatin (Atorvastatin Calcium), 20 MG PO HS Bupropion HCl (Bupropion HCl Sr), 100 MG PO BID Carvedilol (Carvedilol), 6.25 MG PO BID Docusate Sodium (Docqlace), 100 MG PO BID Fluticasone Propionate (Flovent Hfa), 2 PUFFS INH BID Fluticasone Propionate (Fluticasone Propionate), 2 SPRAYS JAXSON DAILY Gabapentin (Gabapentin), 600 MG PO TID Lamotrigine (Lamotrigine), 100 MG PO BID Omeprazole (Prilosec), 20 MG PO DAILY Sertraline HCl (Sertraline HCl), 200 MG PO HS Sucralfate (Sucralfate), 1 GM PO ACHS Scheduled PRN Acetaminophen (Tylenol), 1,000 MG PO Q6H PRN for Pain Albuterol Hfa (Ventolin Hfa), 2 PUFFS INH QID PRN for Shortness of Breath Epinephrine (Epipen 2-Nathaniel), 0.3 MG IM UD PRN for ALLERGIC REACTION Allergies Coded Allergies: BEE STING (Verified Allergy, Mild, 02/27/17) Codeine (Verified Allergy, Unknown, 02/27/17) Physical Exam Vital Signs Date Time Temp Pulse Resp B/P (MAP) Pulse Ox O2 Delivery O2 Flow Rate FiO2 06/04/17 00:18 68 20 111/70 99 06/03/17 23:35 20 128/83 98 Room Air 06/03/17 22:29 69 18 124/83 93 Room Air 06/03/17 20:36 36.8 78 18 124/85 96 Room Air Physical Exam General: Non-ill appearing middle aged male in no acute distress. HEENT: Normal cephalic atraumatic. Pupils are equal round and reactive to light. Extraocular movements are intact. Oropharynx is pink with moist mucous membranes. No swelling of the mouth lips or tongue. Neck: Supple with a midline trachea. No meningeal signs or stiffness, no JVD or bruits. No Stridor. Chest: Clear to auscultation bilaterally. No wheezes or rhonchi. No increased work of breathing. Heart: regular rate and rhythm. Abdomen: Soft, reproducibly tender in the LLQ, nondistended without rebound guarding or rigidity. Extremities: No cyanosis clubbing or edema. No calf tenderness or assymetry Spine/Back. Non tender to palpation. No CVA tenderness Skin: Good turgor without rashes. Neurologic exam: Cranial nerves two through 12 are intact. Motor and sensation are intact and symmetrical throughout. Medical Decision & Procedures ER Provider Diagnostic Interpretation: Radiology results as stated below per my review and radiologist interpretation: CT SCAN OF THE ABDOMEN AND PELVIS WITH IV CONTRAST FINDINGS: Lung bases: The heart is top normal in size and without pericardial effusion. The lung bases are clear noting dependent atelectasis. There is a tiny hiatal hernia. Liver: The contrast-enhanced liver is normal in size, contour, and attenuation. There is no intrahepatic biliary ductal dilatation. The hepatic veins and portal veins are patent. Gallbladder: Unremarkable. Spleen: Normal in size and attenuation. Pancreas: Unremarkable. Adrenal glands: Unremarkable. Kidneys: The contrast enhanced kidneys are normal in size and without hydronephrosis. There is a 12 mm nonobstructing right renal calculus. The kidneys enhance symmetrically. Abdominal vasculature: The abdominal aorta is normal in course and caliber. Bowel: The small bowel and colon are normal in course and caliber. The appendix is well-visualized and normal. Peritoneum: There is no intraperitoneal free air or abdominal ascites. There is a small fat-containing umbilical hernia. Lymphadenopathy: None. Pelvic viscera: The bladder, prostate, and seminal vesicles are normal as visualized. Skeletal structures: No lytic or blastic lesions are seen. IMPRESSION: 1. There are no acute infectious or inflammatory findings in the abdomen or pelvis. 2. Nonobstructing right renal calculus. Electronically signed by: Blade Madison M.D. 06/03/2017 10:56 PM Dictated Date/Time: 06/03/2017 10:52 PM Laboratory Results 06/03/17 21:05 Red Blood Count 4.77, Mean Corpuscular Volume 82.2, Mean Corpuscular Hemoglobin 28.9, Mean Corpuscular Hemoglobin Concent 35.2, Mean Platelet Volume 9.6, Neutrophils (%) (Auto) 66.3, Lymphocytes (%) (Auto) 24.5, Monocytes (%) (Auto) 8.0, Eosinophils (%) (Auto) 0.8, Basophils (%) (Auto) 0.3, Neutrophils # (Auto) 4.88, Lymphocytes # (Auto) 1.80, Monocytes # (Auto) 0.59, Eosinophils # (Auto) 0.06, Basophils # (Auto) 0.02 06/03/17 21:05 Test 06/03/17 21:00 06/03/17 21:05 Urine Color YELLOW Urine Appearance CLEAR (CLEAR) Urine pH 6.0 (4.5-7.5) Urine Specific [place] 1.016 (1.000-1.030) Urine Protein NEG (NEG) Urine Glucose (UA) NEG (NEG) Urine Ketones NEG (NEG) Urine Occult Blood TRACE (NEG) Urine Nitrite NEG (NEG) Urine Bilirubin NEG (NEG) Urine Urobilinogen NEG (NEG) Urine Leukocyte Esterase TRACE (NEG) Urine WBC (Auto) 1-5 /hpf (0-5) Urine RBC (Auto) 5-10 /hpf (0-4) Urine Hyaline Casts (Auto) 0 /lpf (0-5) Urine Epithelial Cells (Auto) 0-5 /lpf (0-5) Urine Bacteria (Auto) NEG (NEG) White Blood Count 7.36 K/uL (4.8-10.8) Red Blood Count 4.77 M/uL (4.7-6.1) Hemoglobin 13.8 g/dL (14.0-18.0) Hematocrit 39.2 % (42-52) Mean Corpuscular Volume 82.2 fL (80-100) Mean Corpuscular Hemoglobin 28.9 pg (25-34) Mean Corpuscular Hemoglobin Concent 35.2 g/dl (32-36) Platelet Count 200 K/uL (130-400) Mean Platelet Volume 9.6 fL (7.4-10.4) Neutrophils (%) (Auto) 66.3 % Lymphocytes (%) (Auto) 24.5 % Monocytes (%) (Auto) 8.0 % Eosinophils (%) (Auto) 0.8 % Basophils (%) (Auto) 0.3 % Neutrophils # (Auto) 4.88 K/uL (1.4-6.5) Lymphocytes # (Auto) 1.80 K/uL (1.2-3.4) Monocytes # (Auto) 0.59 K/uL (0.11-0.59) Eosinophils # (Auto) 0.06 K/uL (0-0.5) Basophils # (Auto) 0.02 K/uL (0-0.2) RDW Standard Deviation 42.0 fL (36.4-46.3) RDW Coefficient of Variation 13.9 % (11.5-14.5) Immature Granulocyte % (Auto) 0.1 % Immature Granulocyte # (Auto) 0.01 K/uL (0.00-0.02) Anion Gap 6.0 mmol/L (3-11) Est Creatinine Clear Calc Drug Dose 104.1 ml/min Estimated GFR () 112.1 Estimated GFR (Non- 96.7 BUN/Creatinine Ratio 10.3 (10-20) Calcium Level 8.9 mg/dl (8.5-10.1) Total Bilirubin 0.5 mg/dl (0.2-1) Direct Bilirubin < 0.1 mg/dl (0-0.2) Aspartate Amino Transf (AST/SGOT) 31 U/L (15-37) Alanine Aminotransferase (ALT/SGPT) 51 U/L (12-78) Alkaline Phosphatase 156 U/L (45-117) Total Protein 7.6 gm/dl (6.4-8.2) Albumin 3.8 gm/dl (3.4-5.0) Lipase 128 U/L (73-393) Laboratory studies as stated above per my review. Medications Administered Medications (Trade) Dose Ordered Sig/Judy Route Start Time Stop Time Status Last Admin Dose Admin Sodium Chloride 1,000 ml @ 999 mls/hr Q1H1M STAT IV 06/03/17 21:18 06/03/17 22:18 DC 06/03/17 21:33 999 MLS/HR Sodium Chloride 1,000 ml @ 150 mls/hr Q6H40M ONCE IV 06/03/17 21:18 06/04/17 00:52 DC 06/03/17 21:33 150 MLS/HR Ondansetron HCl (Zofran Inj) 4 mg NOW STAT IV 06/03/17 21:18 06/03/17 21:19 DC 06/03/17 21:32 4 MG Morphine Sulfate (MoRPHine SULFATE INJ) 4 mg NOW STAT IV 06/03/17 21:18 06/03/17 21:19 DC 06/03/17 21:33 4 MG Morphine Sulfate (MoRPHine SULFATE INJ) 4 mg NOW STAT IV 06/03/17 23:25 06/03/17 23:27 DC 06/03/17 23:34 4 MG ED Course 2210: Past medical records reviewed. The patient was evaluated in room B5, and a complete history and physical examination were performed. 2117: Morphine Sulfate 4mg IV, Zofran Inj 4mg IV, Sodium Chloride 1000 ml @ 150 mls/hr IV, Sodium Chloride 1000 ml @ 999 mls/hr IV. 2325: Morphine Sulfate 4mg IV. 2321: I reevaluated the patient. He is doing well but is still in some pain. 2325: Upon reevaluation, the patient is doing well. I discussed the results and treatment plan with the patient. She verbalized agreement of the treatment plan. The patient was discharged home. Medical Decision Differentials include, but are not limited to; diverticulitis, colitis, musculoskeletal, UTI. This patient comes in as described above. He was placed in room B8. He is here for treatment and evaluation of left lower abdominal pain. He's had no fever. On exam, he is mildly tender but has no peritonitis. He denies any pain in his testicle or groin area. IV access established she is not driving. He was hydrated with IV normal saline. He was given morphine 4 mg IV and Zofran 4 mg IV. He required additional dose of morphine for pain. He has no white count or fever to suggest infection. He has no acute electrolyte or metabolic abnormalities. He has nothing to suggest urinary tract infection. I did a CAT scan with IV contrast or no acute findings of is nothing to suggest acute diverticulitis. He is feeling better and would like to go home this could be musculoskeletal or related to bowel gas. This point not finding any acute infectious or surgical process. The patient will be discharged home. He was encouraged follow-up with his regular doctor return ER if : increasing pain , worsening of symptoms, fever chills, any new problems or concerns. He is happy with plan discharged to home. Medication Reconcilliation Current Medication List: was personally reviewed by me Blood Pressure Screening Patient's blood pressure: Normal blood pressure Blood pressure disposition: Did not require urgent referral Impression Primary Impression: LLQ abdominal pain Scribe Attestation The scribe's documentation has been prepared under my direction and personally reviewed by me in its entirety. I confirm that the note above accurately reflects all work, treatment, procedures, and medical decision making performed by me. Departure Information Dispostion Home / Self-Care Referrals Fabricio Kelley M.D. (MEDICAL) (PCP) Forms Call Back Authorization, HOME CARE DOCUMENTATION FORM, IMPORTANT VISIT INFORMATION Patient Instructions My [facility] [address] Additional Instructions Rest Drink plenty of fluids REturn if: worsening of symptoms, fever or chills, increasing pain, any new problems or concerns
== END 2017-06-04 00:19 | disposition home or self-care (01) ==
LOC: C.EDB 20:31
DX: R10.32 Left lower quadrant pain (principal); J45.909 Unspecified asthma, uncomplicated; I10 Essential (primary) hypertension; F32.9 Major depressive disorder, single episode, unspecified; K21.9 Gastro-esophageal reflux disease without esophagitis; E78.5 Hyperlipidemia, unspecified; Z87.442 Personal history of urinary calculi; Z98.818 Other dental procedure status; Z98.890 Other specified postprocedural states; Z82.5 Family history of asthma and other chronic lower respiratory diseases; Z83.3 Family history of diabetes mellitus; Z82.49 Family history of ischemic heart disease and other diseases of the circulatory system; Z79.82 Long term (current) use of aspirin; Z79.899 Other long term (current) drug therapy

== ENCOUNTER 2017-07-14 17:53 | Emergency (ER) | payer OTHER ==
[~2017-07-14] VITALS: Ht 170.2 cm; Wt 91.3 kg
[~2017-07-14 17:53] MED LIST changes: -BUPR100T8 PO
[2017-07-14 18:03] VITALS: TEMP 36.4; Ht 170.2 cm; Wt 91.3 kg
[2017-07-14 18:11] VITALS: O2SAT 99
[2017-07-14 18:47] LABS: BASO % 0.1 %; BASO ABS # 0.01 K/uL (0-0.2); COMPLETE YES; EOS % 1.3 %; HEMATOCRIT 39.4 % (42-52); IG% 0.1 %; LYMPH ABS # 1.09 K/uL (1.2-3.4); MEAN CELL VOLUME 84.2 fL (80-100); MEAN CORPUSCULAR HEMOGLOBIN 29.1 pg (25-34); MEAN CORPUSCULAR HGB CONC 34.5 g/dl (32-36); MEAN PLATELET VOLUME 9.7 fL (7.4-10.4); MONO % 5.8 %; NEUT % 78.7 %; PLATELET COUNT 198 K/uL (130-400); RED BLOOD COUNT 4.68 M/uL (4.7-6.1); WHITE BLOOD COUNT 7.78 K/uL (4.8-10.8)
[2017-07-14 18:47] LABS: ARTERIAL BLD GAS O2 SATURATION 98.6 % (90-95); ARTERIAL BLOOD GAS BASE EXCESS 3.3 mEq/L (-9-1.8); ARTERIAL BLOOD GAS HCO3 28 mmol/L (19-24); ARTERIAL BLOOD GAS PO2 123 mm/Hg (80-95); ARTERIAL BLOOD GAS pH 7.42 (7.35-7.45)
[2017-07-14 18:50] LABS: ALLEN TEST POS (POS); O2 ADMINISTRATION 4 L
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
[2017-07-14 19:07] LABS: BUN/CREATININE RATIO 12.6 (10-20); CALCIUM 8.3 mg/dl (8.5-10.1); CREATININE 1.12 mg/dl (0.60-1.40); POTASSIUM 3.4 mmol/L (3.5-5.1)
[2017-07-14 19:10] LABS: ALB/GLOB RATIO 0.9 (0.9-2)
[2017-07-14 20:01] VITALS: BP 135/83
[2017-07-14 20:06] VITALS: PULSE 72
[2017-07-14 20:11] VITALS: O2SAT 95
[2017-07-14] MEDS ORDERED: OMEP20CA9 PO (20:51)
[2017-07-14] MEDS ORDERED: ZLF/100 PO (20:51)
[2017-07-14] MEDS ORDERED: LAMO1TAB21 PO (20:51)
[2017-07-14] MEDS ORDERED: FLVHFA110 INH (20:51)
[2017-07-14] MEDS ORDERED: EPP3/2 IM (20:51)
[2017-07-14] MEDS ORDERED: LPT/20 PO (20:51)
[2017-07-14] MEDS ORDERED: NRN600 PO (20:51)
[2017-07-14] MEDS ORDERED: FLNIN/ NAE (21:19)
[2017-07-14] MEDS ORDERED: CRG625 PO (21:19)
[2017-07-14] MEDS ORDERED: WLLSR100 PO (21:23)
[2017-07-14] MEDS ORDERED: ACET-1256 PO (21:26)
[2017-07-14] MEDS ORDERED: ASPI81TA21 PO (22:37)
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
== END 2017-07-14 20:12 | disposition home or self-care (01) ==
LOC: EDBD 17:53 → C.EDC 17:54
DX: J70.5 Respiratory conditions due to smoke inhalation (principal); J45.909 Unspecified asthma, uncomplicated; I10 Essential (primary) hypertension; F32.9 Major depressive disorder, single episode, unspecified; K21.9 Gastro-esophageal reflux disease without esophagitis; E78.5 Hyperlipidemia, unspecified; Z82.5 Family history of asthma and other chronic lower respiratory diseases; Z83.3 Family history of diabetes mellitus; Z82.49 Family history of ischemic heart disease and other diseases of the circulatory system; Z79.82 Long term (current) use of aspirin

== ENCOUNTER 2017-08-06 15:19 | Emergency (ER) | payer OTHER ==
[~2017-08-06] VITALS: Ht 170.2 cm; Wt 87.4 kg
[~2017-08-06 15:19] MED LIST changes: +ACET-1256 PO; +ASPI81TA21 PO; +CRG625 PO; +EPP3/2 IM; +FLNIN/ NAE; +FLVHFA110 INH; +LAMO1TAB21 PO; +LPT/20 PO; +NRN600 PO; +OMEP20CA9 PO; +WLLSR100 PO; +ZLF/100 PO
[2017-08-06 15:22] VITALS: TEMP 36.5; Ht 170.2 cm; Wt 87.4 kg
[2017-08-06] MEDS ORDERED: KETOROLAC TROMETHAMINE 30 MG/ML VIAL IV STA (15:32)
[2017-08-06] MEDS ORDERED: PROMETHAZINE HCL INJ 25 MG/ML 1 ML VIAL IM STA (15:32)
[2017-08-06 16:14] VITALS: BP 129/82; PULSE 73; O2SAT 96
--- NOTE | 2017-08-06 16:29 | EMERGENCY ROOM VISIT NOTE ---
ED Visit Note First contact with patient: 15:25 CHIEF COMPLAINT: Migraine headache. HISTORY OF PRESENT ILLNESS: Mr. Gregg is a 47 year-old white male who ambulates into the ED complaining of a migraine headache. He reports a gradual onset of a severe migraine headache that started approximately 24 hours ago. The pain is constant and it is slowly increasing in severity. This is not the worst headache of the life and is similar to previous migraines. Currently he describes the headache as a pressure and throbbing sensation/pain in the bilateral frontal and temporal areas. He rates the pain a 8/10. The pain is nonradiating. He reports taking acetaminophen without relief of pain. His pain worsens with exposure to bright light. He has not identified any alleviating factors related to the pain. There is been associated nausea but no vomiting. He denies recent head trauma, fevers, chills, sweats, skin eruptions, skin color changes, dizziness, lightheadedness, abnormal neurological symptoms, back pain/stiffness, sore throats, sinus congestions, recent dental work, chest pain, shortness of breath, abdominal pain, extremity weakness/numbness/tingling, visual changes, hearing changes, difficulty speaking , difficulty swallowing, difficulty ambulating/coordinating body movements. REVIEW OF SYSTEMS: As noted above in history of present illness: all by systems were reviewed with the patient and one found to be negative unless noted above otherwise. PAST MEDICAL HISTORY: , Chronic migraine headaches, asthma, pneumonia, hypertension, dyslipidemia, GERD, kidney stones, depression, status post lithotripsy, hemorrhoidectomy and unspecified dental surgeries. CURRENT MEDICATIONS: Medications Dose Route/Sig Max Daily Dose Days Date Category Dose Instructions Tylenol (Acetaminophen) 500 Mg Tab 1,000 Mg PO Q6H PRN 06/03/17 Reported Bupropion HCl Sr (Bupropion HCl) 100 Mg Tabcr 100 Mg PO BID 06/03/17 Reported Sucralfate 1 Gm Tab 1 Gm PO ACHS 09/15/16 Reported TAKE THIS MEDICATION 30 MINUTES BEFORE MEALS AND BEDTIME Ventolin Hfa (Albuterol) 200 Puffs/35912 Mcg Aers 2 Puffs INH QID PRN 07/24/16 Reported Docqlace (Docusate Sodium) 100 Mg Cap 100 Mg PO BID 02/08/16 Reported Fluticasone Propionate 120 Sprays/6000 Mcg Inha 2 Sprays JAXSON DAILY 11/26/15 Reported Carvedilol 6.25 Mg Tab 6.25 Mg PO BID 06/10/14 Reported TAKE THIS MEDICATION WITH FOOD Atorvastatin Calcium (Atorvastatin) 20 Mg Tab 20 Mg PO HS 05/06/14 Reported Lamotrigine 100 Mg Tab 100 Mg PO BID 05/06/14 Reported Gabapentin 600 Mg Tab 600 Mg PO TID 05/06/14 Reported Flovent Hfa (Fluticasone Propionate) 120 Puffs/38770 Mcg Aero 2 Puffs INH BID 05/06/14 Reported Prilosec (Omeprazole) 20 Mg Cap 20 Mg PO DAILY 05/06/14 Reported TAKE THIS MEDICATION ONCE DAILY ONE HOUR BEFORE FIRST MEAL OF THE DAY Epipen 2-Nathaniel (Epinephrine) 0.3 Mg Inj 0.3 Mg IM UD PRN 05/06/14 Reported Sertraline HCl 100 Mg Tab 200 Mg PO HS 05/06/14 Reported TAKE THIS MEDICATION ONE HOUR BEFORE BEDTIME. Ecotrin Or Generic (Aspirin) 81 Mg Tab 81 Mg PO DAILY 05/30/12 Reported ALLERGIES TO MEDICATIONS: Codeine. SOCIAL HISTORY: Patient is not currently employed; he feels safe in his home environment; he denies tobacco use. PHYSICAL EXAM: Vital Signs: Date Time Temp Pulse Resp B/P (MAP) Pulse Ox O2 Delivery O2 Flow Rate FiO2 08/06/17 16:14 73 18 129/82 96 Room Air 08/06/17 15:22 36.5 70 16 142/84 98 Room Air GENERAL: 47 year-old male in mild to moderate distress due to pain, afebrile and hemodynamically stable. Found lying in a darkened room. NEUROLOGIC: Awake, alert and oriented to person place and time. Answering questions appropriately and following commands. Normal gait. Good hand eye coordination. Cranial nerves II through XII grossly intact. No focal motor or sensory deficits. Good short-term and long-term recall. SKIN: Warm, dry and pink. No rashes, lesions or soft tissue trauma noted. HEENT: Normocephalic, atraumatic. No tenderness or erythema over the frontal or maxillary sinuses. External ears are nontender. Auditory canals are patent. Tympanic membranes are not erythematous or edematous. PERRLA. EOMI without nystagmus. Positive light sensitivity precluding funduscopic examination. Sclerae white and conjunctiva is pink. No drainage from the nostrils are audible congestion. Oral cavity is moist and pink. Airway is patent. Speech is normal. Uvula is midline and no abscesses are seen. No posterior pharyngeal erythema or edema. No JVD. Trachea midline. NECK: No tenderness over the cervical, thoracic and lumbar spine. No tenderness throughout the paraspinous muscles. No meningismus. Full range of motion of the cervical spine. No CVA tenderness. THORAX: Lungs clear to auscultation and equal bilaterally with no wheezing, crackles, rhonchi or stridor and equal chest wall movements. HEART: Regular rate and rhythm with no murmurs, rubs or gallops. ABDOMEN: Soft and nontender with bowel sounds present in all quadrants; no rigidity, rebound tenderness, organomegaly or guarding. MUSCULOSKELETAL: Moves all extremities well on command and with purpose. All distal neurovascular statuses are intact and equal bilaterally. ED COURSE: Patient is assessed as noted above. Patient's medication list was reviewed. Patient was given 30 mg of Toradol IM and 25 mg of Phenergan IM. Patient was educated about his condition and instructed on his treatment plan; he verbalized understanding and agreement with this plan. CLINICAL IMPRESSION: Migraine headache. DECISION MAKIN-year-old male who presents for evaluation of headache. He is afebrile, well appearing, and hemodynamically stable. He has no signs of a sinus, dental, or ear infection and no evidence of meningismus. He is neurologically intact. I do not suspect a headache to be secondary to a subarachnoid hemorrhage, meningitis, encephalitis, or intracranial mass lesion. DISPOSITION: Patient was discharged to home in stable condition accompanied by female friend; prior to discharge he was reassessed and subjectively reported he was feeling better and rated his discomfort 3/10. DISCHARGE INSTRUCTIONS: Rest at home and find a quiet darkened room and allow the medication to work for the pain. Continue to follow up current treatment plan prescribed by your physician for your migraine headaches. See your own doctor in follow-up this week for continued care and treatment. Return to the ED for worsening/uncontrolled pain, fevers, abnormal neurological symptoms, vomiting, or any new/concerning symptoms.
== END 2017-08-06 16:19 | disposition home or self-care (01) ==
LOC: C.EDB 15:20 → C.EDC 16:19
DX: G43.909 Migraine, unspecified, not intractable, without status migrainosus (principal); J45.909 Unspecified asthma, uncomplicated; I10 Essential (primary) hypertension; E78.5 Hyperlipidemia, unspecified; K21.9 Gastro-esophageal reflux disease without esophagitis; F32.9 Major depressive disorder, single episode, unspecified; Z79.51 Long term (current) use of inhaled steroids; Z79.82 Long term (current) use of aspirin

== ENCOUNTER 2017-10-25 16:05 | Emergency (ER) | payer OTHER ==
[~2017-10-25] VITALS: Ht 170.2 cm; Wt 91.0 kg
[~2017-10-25 16:05] MED LIST changes: -ACET-1256 PO; -ASPI81TA21 PO; -CRG625 PO; -EPP3/2 IM; -FLNIN/ NAE; -FLVHFA110 INH; -LAMO1TAB21 PO; -LPT/20 PO; +LPT20 PO; -NRN600 PO; -OMEP20CA9 PO; -SUCR1TAB PO; -VNTHFA/IN INH; -WLLSR100 PO; -ZLF/100 PO
[2017-10-25 16:07] VITALS: TEMP 36.7; Ht 170.2 cm; Wt 91.0 kg
[2017-10-25] MEDS ORDERED: SUCR1TAB PO (16:09)
[2017-10-25] MEDS ORDERED: GI COCKTAIL PO STA (16:17)
[2017-10-25] MEDS ORDERED: VNTHFA/IN INH (16:19)
--- NOTE | 2017-10-25 16:23 | EMERGENCY ROOM VISIT NOTE ---
History First contact with patient: 16:09 Chief Complaint: ABDOMINAL PAIN Stated Complaint: STOMACH PAIN, NAUSEA, DIZZY Nursing Triage Summary: pt to the ED with c/o abd pain nausea dizzy for 1 wk abd pain is diffuse non specific History of Present Illness The patient is a 47 year old male who presents to the Emergency Room with complaints of abdominal pain and nausea 1 week. The patient reports that he has had central abdominal pain with associated heartburn and nausea 1 week. He rates the discomfort in 8/10. He states that nothing makes the pain better or worse. He has tried Tums without relief. He has been able to eat, but his significant other notes that he is eating less than he normally does. He has had no vomiting. He denies any chest pain/shortness of breath. He denies any fever/chills, urinary symptoms or changes in bowel movements. He denies any history of abdominal issues or abdominal surgeries. Review of Systems A complete 10 point review of systems was reviewed with the patient with pertinent positives and negatives as per history of present illness. All else were negative. Past Medical/Surgical History Medical Problems: (1) Aspiration pneumonia (2) Asthma (3) Benign hypertension (4) Chest pain (5) Chronic headaches (6) Depression (7) GERD (gastroesophageal reflux disease) (8) History of hemorrhoids (9) History of kidney stones (10) Hyperlipidemia (11) MIGRAINE UNSPECIFIED W/O INTRACT MGRN W/O STATUS MIGRAINOSUS Surgical Problems: (1) H/O colonoscopy (2) H/O cystoscopy (3) History of dental surgery (4) History of lithotripsy (5) S/P hemorrhoidectomy Family History Asthma Diabetes mellitus SISTER AUNT FH: cancer FATHER Hypertension Kidney disease Social History Smoking Status: Former Smoker Alcohol Use: none Drug Use: none Marital Status: in relationship Housing Status: lives with significant other Occupation Status: disabled Current/Historical Medications Scheduled Aspirin Enteric Coated (Ecotrin Or Generic), 81 MG PO DAILY Atorvastatin (Lipitor), 20 MG PO HS Bupropion HCl (Bupropion HCl Sr), 100 MG PO BID Carvedilol (Carvedilol), 6.25 MG PO BID Docusate Sodium (Docqlace), 100 MG PO BID Fluticasone Propionate (Flovent Hfa), 2 PUFFS INH BID Fluticasone Propionate (Fluticasone Propionate), 2 SPRAYS JAXSON DAILY Gabapentin (Gabapentin), 600 MG PO TID Lamotrigine (Lamotrigine), 100 MG PO BID Omeprazole (Prilosec), 20 MG PO DAILY Ranitidine (Zantac), 150 MG PO BID Sertraline HCl (Sertraline HCl), 200 MG PO HS Sucralfate (Sucralfate), 1 GM PO ACHS Scheduled PRN Acetaminophen (Tylenol), 1,000 MG PO Q6H PRN for Pain Albuterol Hfa (Ventolin Hfa), 2 PUFFS INH QID PRN for Shortness of Breath Epinephrine (Epipen 2-Nathaniel), 0.3 MG IM UD PRN for ALLERGIC REACTION Physical Exam Vital Signs Date Time Temp Pulse Resp B/P (MAP) Pulse Ox O2 Delivery O2 Flow Rate FiO2 10/25/17 17:13 76 18 141/108 98 Room Air 10/25/17 16:07 36.7 81 18 154/104 96 Physical Exam VITALS: Vitals are noted on the nurse's note and reviewed by myself. Vital signs stable. GENERAL: This is a 47-year-old male, in no acute distress, nondiaphoretic, well- developed well-nourished. SKIN: The skin was without rashes. EARS: External auditory canals clear, tympanic membranes pearly moore without erythema or effusion bilaterally. EYES: Pupils equal round and reactive to light and accommodation. MOUTH: Mucous membranes moist. Tonsils are not enlarged. Pharynx without erythema or exudate. HEART: Regular rate and rhythm without murmurs gallops or rubs. LUNGS: Clear to auscultation bilaterally without wheezes, rales or rhonchi. ABDOMEN: Positive bowel sounds x 4. Mild tenderness to palpation in the epigastric region. No guarding or rebound tenderness. NEURO: Patient was alert and oriented to person place and time. Medical Decision & Procedures ER Provider Diagnostic Interpretation: ABDOMEN 2VIEW W/PA CHEST RTN CLINICAL HISTORY: 47 years-old Male presenting with epigastric pain. TECHNIQUE: PA view of the chest and supine and upright views of the abdomen were obtained. COMPARISON: 07/14/[address] of the abdomen and pelvis from 06/03/2017.. FINDINGS: Cardiomediastinal silhouette normal. Mildly low lung volumes, unchanged. No focal opacity. No large effusion or pneumothorax. Nonobstructive bowel gas pattern. No gross pneumoperitoneum. Allowing for bowel gas and stool, stable position of the 12 mm calculus at the interpolar right kidney. Stable pelvic phleboliths and prostatic calcifications. Osseous structures normal. IMPRESSION: 1. No acute cardiopulmonary disease. 2. Right nephrolithiasis. 3. No bowel obstruction or free air. Laboratory Results 10/25/17 16:40 Red Blood Count 5.57, Mean Corpuscular Volume 80.6, Mean Corpuscular Hemoglobin 28.9, Mean Corpuscular Hemoglobin Concent 35.9, Mean Platelet Volume 9.3, Neutrophils (%) (Auto) 65.6, Lymphocytes (%) (Auto) 24.3, Monocytes (%) (Auto) 8.5, Eosinophils (%) (Auto) 1.1, Basophils (%) (Auto) 0.3, Neutrophils # (Auto) 4.35, Lymphocytes # (Auto) 1.61, Monocytes # (Auto) 0.56, Eosinophils # (Auto) 0.07, Basophils # (Auto) 0.02 10/25/17 16:40 Test 10/25/17 16:40 White Blood Count 6.62 K/uL (4.8-10.8) Red Blood Count 5.57 M/uL (4.7-6.1) Hemoglobin 16.1 g/dL (14.0-18.0) Hematocrit 44.9 % (42-52) Mean Corpuscular Volume 80.6 fL (80-100) Mean Corpuscular Hemoglobin 28.9 pg (25-34) Mean Corpuscular Hemoglobin Concent 35.9 g/dl (32-36) Platelet Count 226 K/uL (130-400) Mean Platelet Volume 9.3 fL (7.4-10.4) Neutrophils (%) (Auto) 65.6 % Lymphocytes (%) (Auto) 24.3 % Monocytes (%) (Auto) 8.5 % Eosinophils (%) (Auto) 1.1 % Basophils (%) (Auto) 0.3 % Neutrophils # (Auto) 4.35 K/uL (1.4-6.5) Lymphocytes # (Auto) 1.61 K/uL (1.2-3.4) Monocytes # (Auto) 0.56 K/uL (0.11-0.59) Eosinophils # (Auto) 0.07 K/uL (0-0.5) Basophils # (Auto) 0.02 K/uL (0-0.2) RDW Standard Deviation 38.9 fL (36.4-46.3) RDW Coefficient of Variation 13.3 % (11.5-14.5) Immature Granulocyte % (Auto) 0.2 % Immature Granulocyte # (Auto) 0.01 K/uL (0.00-0.02) Urine Color YELLOW Urine Appearance CLEAR (CLEAR) Urine pH 6.0 (4.5-7.5) Urine Specific [place] 1.011 (1.000-1.030) Urine Protein NEG (NEG) Urine Glucose (UA) NEG (NEG) Urine Ketones NEG (NEG) Urine Occult Blood TRACE (NEG) Urine Nitrite NEG (NEG) Urine Bilirubin NEG (NEG) Urine Urobilinogen NEG (NEG) Urine Leukocyte Esterase NEG (NEG) Urine WBC (Auto) 1-5 /hpf (0-5) Urine RBC (Auto) 0-4 /hpf (0-4) Urine Hyaline Casts (Auto) 0 /lpf (0-5) Urine Epithelial Cells (Auto) 0-5 /lpf (0-5) Urine Bacteria (Auto) NEG (NEG) Anion Gap 8.0 mmol/L (3-11) Est Creatinine Clear Calc Drug Dose 105.7 ml/min Estimated GFR () 113.6 Estimated GFR (Non- 98.0 BUN/Creatinine Ratio 12.8 (10-20) Calcium Level 11.1 mg/dl (8.5-10.1) Total Bilirubin 0.4 mg/dl (0.2-1) Aspartate Amino Transf (AST/SGOT) 31 U/L (15-37) Alanine Aminotransferase (ALT/SGPT) 48 U/L (12-78) Alkaline Phosphatase 182 U/L (45-117) Troponin I < 0.015 ng/ml (0-0.045) Total Protein 8.7 gm/dl (6.4-8.2) Albumin 4.1 gm/dl (3.4-5.0) Globulin 4.6 gm/dl (2.5-4.0) Albumin/Globulin Ratio 0.9 (0.9-2) Lipase 100 U/L (73-393) Medications Administered Medications (Trade) Dose Ordered Sig/Judy Route Start Time Stop Time Status Last Admin Dose Admin Lidocaine HCl (Viscous Lidocaine 2% Soln) 20 ml STK-MED ONCE .ROUTE 10/25/17 16:44 10/25/17 16:45 DC 10/25/17 16:46 20 ML Al Hydroxide/Mg Hydroxide (Maalox Susp) 30 ml STK-MED ONCE .ROUTE 10/25/17 16:44 10/25/17 16:45 DC 10/25/17 16:46 30 ML ECG Per My Interpretation Indication: abdominal pain Rate (beats per minute): 75 Rhythm: normal sinus Findings: no acute ischemic change, no ectopy Change: no significant change Medical Decision Differential diagnosis includes gastroenteritis, colitis, gastritis, GERD, cholecystitis, pancreatitis, among others. The patient is a 47-year-old male who presents today complaining of abdominal pain 1 week. Labs revealed no leukocytosis or anemia. Patient slightly hypercalcemic with calcium of 11.1. He was advised to have this rechecked by his PCP. Alkaline phosphatase was elevated at 182 which appears to be baseline for the patient. Creatinine within normal limits. LFTs are otherwise within normal limits. Urinalysis was not suggestive of infection. EKG was interpreted by myself and shows no ischemic findings. Troponin was negative. Patient was treated with a GI cocktail with some relief. His symptoms are likely secondary to GERD/gastritis. He was instructed to begin Zantac. He was advised to follow-up with his primary care provider this week. Based on the patient's presentation and work up, I feel the patient is stable for outpatient treatment. The patient was educated to return to the emergency department for any worsening of their current condition or new/concerning symptoms. He will follow up with his PCP. The patient was independently evaluated by Dr. Ayon, ED attending physician, who agreed with my assessment and treatment plan. Medication Reconcilliation Current Medication List: was personally reviewed by me Blood Pressure Screening Patient's blood pressure: Elevated blood pressure Blood pressure disposition: Elevated BP felt to be situational Impression Primary Impression: Central abdominal pain Departure Information Dispostion Home / Self-Care Condition GOOD Prescriptions Ranitidine (Zantac) 150 Mg Tab 150 MG PO BID for 14 Days, #28 TAB Prov: Yamile Alvarez ., WARD 10/25/17 Referrals Fabricio Kelley M.D. (MEDICAL) (PCP) Patient Instructions My [facility] Additional Instructions You have been treated in the Emergency Department for your Abdominal Pain. Laboratory results and imaging studies have ruled out any emergent causes for your abdominal pain which would warrant admission or surgery. Zantac, twice daily as prescribed until further follow-up with your primary care provider. For pain control, you can use the following [id number] medicines (if >12 yo): - Regular strength (325mg/tab) Tylenol (acetaminophen) 2 tabs every 4-6 hours as needed. Do not exceed 12 tablets in a 24 hour period. Avoid taking more than 4 grams (4000 mg) of Tylenol per day. This includes any other sources of acetaminophen you may take on a regular basis. - Regular strength (200 mg/tab) Advil (ibuprofen) 1-2 tabs every 4-6 hours as needed. Do not exceed a dose of 3200 mg per day. Keep a bland diet until you are feeling better. Contact your primary care provider to schedule follow-up by the end of the week. Return to the emergency department if your symptoms persist despite treatment plan outlined above or if the following symptoms occur: Fever, vomiting, worsening pain or other new/concerning symptoms.
[2017-10-25] MEDS ORDERED: ATOR-22 PO (16:35)
[2017-10-25] MEDS ORDERED: LIDOCAINE HCL 2% VISC SOLN 20 ML UDC ONE (16:44)
[2017-10-25] MEDS ORDERED: ALUMINUM/MAGNESIUM SUSP 30 ML UDC ONE (16:44)
[2017-10-25 16:46] LABS: BASO % 0.3 %; BASO ABS # 0.02 K/uL (0-0.2); EOS % 1.1 %; EOS ABS # 0.07 K/uL (0-0.5); HEMATOCRIT 44.9 % (42-52); HEMOGLOBIN 16.1 g/dL (14.0-18.0); IG# 0.01 K/uL (0.00-0.02); LYMPH % 24.3 %; LYMPH ABS # 1.61 K/uL (1.2-3.4); MEAN CELL VOLUME 80.6 fL (80-100); MEAN CORPUSCULAR HEMOGLOBIN 28.9 pg (25-34); MEAN CORPUSCULAR HGB CONC 35.9 g/dl (32-36); MEAN PLATELET VOLUME 9.3 fL (7.4-10.4); MONO % 8.5 %; MONO ABS # 0.56 K/uL (0.11-0.59); NEUT % 65.6 %; NEUT ABS # 4.35 K/uL (1.4-6.5); PLATELET COUNT 226 K/uL (130-400); RED CELL DISTRIBUTION WIDTH CV 13.3 % (11.5-14.5); RED CELL DISTRIBUTION WIDTH SD 38.9 fL (36.4-46.3); WHITE BLOOD COUNT 6.62 K/uL (4.8-10.8)
[2017-10-25 17:03] LABS: ALBUMIN 4.1 gm/dl (3.4-5.0); ALT/SGPT 48 U/L (12-78); BLOOD UREA NITROGEN 12 mg/dl (7-18); CALCIUM 11.1 mg/dl (8.5-10.1); CARBON DIOXIDE 28 mmol/L (21-32); CREATININE 0.92 mg/dl (0.60-1.40); GLUCOSE 115 mg/dl (70-99); LIPASE 100 U/L (73-393); POTASSIUM 3.5 mmol/L (3.5-5.1); SODIUM 136 mmol/L (136-145)
--- NOTE | 2017-10-25 17:07 | DIAGNOSTIC IMAGING REPORT ---
ABDOMEN 2VIEW W/PA CHEST RTN CLINICAL HISTORY: 47 years-old Male presenting with epigastric pain. TECHNIQUE: PA view of the chest and supine and upright views of the abdomen were obtained. COMPARISON: 07/14/[address] of the abdomen and pelvis from 06/03/2017.. FINDINGS: Cardiomediastinal silhouette normal. Mildly low lung volumes, unchanged. No focal opacity. No large effusion or pneumothorax. Nonobstructive bowel gas pattern. No gross pneumoperitoneum. Allowing for bowel gas and stool, stable position of the 12 mm calculus at the interpolar right kidney. Stable pelvic phleboliths and prostatic calcifications. Osseous structures normal. IMPRESSION: 1. No acute cardiopulmonary disease. 2. Right nephrolithiasis. 3. No bowel obstruction or free air. Electronically signed by: Amarjit Delatorre M.D. 10/25/2017 5:06 PM Dictated Date/Time: 10/25/2017 5:04 PM
[2017-10-25 17:08] LABS: ALKALINE PHOSPHATASE 182 U/L (45-117); AST/SGOT 31 U/L (15-37); TOTAL PROTEIN 8.7 gm/dl (6.4-8.2)
[2017-10-25 17:13] VITALS: BP 141/108; PULSE 76; O2SAT 98
--- NOTE | 2017-10-25 17:19 | EMERGENCY ROOM VISIT NOTE ---
ED Visit Note First contact with patient: 16:09 This Patient was discussed with the physician under water assistant, Yamile Alvarez PA-C. The pertinent historical and physical exam findings were confirmed. I agree with the studies ordered and with the interpretations of these studies. I agree with the disposition and care plan.
[2017-10-25] MEDS ORDERED: RANI150T85 PO (17:24)
[2017-10-25] MEDS ORDERED: EPP3/2 IM (20:51)
[2017-10-25] MEDS ORDERED: NRN600 PO (20:51)
[2017-10-25] MEDS ORDERED: OMEP20CA9 PO (20:51)
[2017-10-25] MEDS ORDERED: LAMO1TAB21 PO (20:51)
[2017-10-25] MEDS ORDERED: ZLF/100 PO (20:51)
[2017-10-25] MEDS ORDERED: FLVHFA110 INH (20:51)
[2017-10-25] MEDS ORDERED: CRG625 PO (21:19)
[2017-10-25] MEDS ORDERED: FLNIN/ NAE (21:19)
[2017-10-25] MEDS ORDERED: WLLSR100 PO (21:23)
[2017-10-25] MEDS ORDERED: ACET-1256 PO (21:26)
[2017-10-25] MEDS ORDERED: ASPI81TA21 PO (22:37)
== END 2017-10-25 17:33 | disposition home or self-care (01) ==
LOC: C.EDB 16:06 → C.EDC 17:33
DX: R10.9 Unspecified abdominal pain (principal); R11.0 Nausea; K21.9 Gastro-esophageal reflux disease without esophagitis; E78.5 Hyperlipidemia, unspecified; I10 Essential (primary) hypertension; F32.9 Major depressive disorder, single episode, unspecified; J45.909 Unspecified asthma, uncomplicated; Z79.82 Long term (current) use of aspirin; Z79.899 Other long term (current) drug therapy; Z87.891 Personal history of nicotine dependence; Z82.49 Family history of ischemic heart disease and other diseases of the circulatory system; Z83.3 Family history of diabetes mellitus; Z83.6 Family history of other diseases of the respiratory system; Z84.1 Family history of disorders of kidney and ureter

== ENCOUNTER 2017-12-25 17:29 | Emergency (ER) | payer OTHER ==
[~2017-12-25] VITALS: Ht 170.2 cm; Wt 91.9 kg
[~2017-12-25 17:29] MED LIST changes: +ACET-1256 PO; +ASPI-319 PO; +ATOR-22 PO; +BUTACAP10 PO; +CRG625 PO; +EPP3/2 IM; +FLNIN/ NAE; +FLVHFA110 INH; +LAMO1TAB21 PO; -LPT20 PO; +NRN600 PO; +OMEP20CA9 PO; +SUCR1TAB PO; +VNTHFA/IN INH; +WLLSR100 PO; +ZLF/100 PO
[2017-12-25 17:36] VITALS: TEMP 36.7; Ht 170.2 cm; Wt 91.9 kg
--- NOTE | 2017-12-25 17:53 | EMERGENCY ROOM VISIT NOTE ---
History Report prepared by Meagan: Lucas Marx Under the Supervision of: Dr. Michael Germain M.D. First contact with patient: 17:41 Chief Complaint: HEADACHE Stated Complaint: MIGRAINE History of Present Illness The patient is a 47 year old male who presents to the Emergency Room with complaints of a constant headache that began three days ago. He reports the pain is across his forehead. The patient rates his pain as an 8/10 in severity. He reports he has been taking Tylenol for his symptoms without relief. The patient states his current headache is similar to his usual headaches. He reports he has been following up with pain management for his headaches. The patient denies trauma or injury, numbness, weakness, neck pain, neck stiffness, chest pain, current smoking use. Source of History: patient Onset: three days ago Position: head Symptom Intensity: 8/10 Quality: ache Timing: constant Modifying Factors (Relieving): tylenol Associated Symptoms: No neck pain, No chest pain, No weakness, No numbness Review of Systems See HPI for pertinent positives & negatives. A total of 10 systems reviewed and were otherwise negative. Past Medical & Surgical Medical Problems: (1) Aspiration pneumonia (2) Asthma (3) Benign hypertension (4) Chest pain (5) Chronic headaches (6) Depression (7) GERD (gastroesophageal reflux disease) (8) History of hemorrhoids (9) History of kidney stones (10) Hyperlipidemia (11) MIGRAINE UNSPECIFIED W/O INTRACT MGRN W/O STATUS MIGRAINOSUS Surgical Problems: (1) H/O colonoscopy (2) H/O cystoscopy (3) History of dental surgery (4) History of lithotripsy (5) S/P hemorrhoidectomy Old medical records were reviewed. Nurse's notes were reviewed and I agree with. Family History Asthma Diabetes mellitus SISTER AUNT FH: cancer FATHER Hypertension Kidney disease Social History Smoking Status: Never Smoker Alcohol Use: none Drug Use: none Marital Status: in relationship Housing Status: lives with significant other Occupation Status: disabled Current/Historical Medications Scheduled Aspirin Enteric Coated (Ecotrin Or Generic), 81 MG PO DAILY Atorvastatin (Lipitor), 20 MG PO HS Bupropion HCl (Bupropion HCl Sr), 100 MG PO BID Carvedilol (Carvedilol), 6.25 MG PO BID Docusate Sodium (Docqlace), 100 MG PO BID Fluticasone Propionate (Flovent Hfa), 2 PUFFS INH BID Fluticasone Propionate (Fluticasone Propionate), 2 SPRAYS JAXSON DAILY Gabapentin (Gabapentin), 600 MG PO TID Lamotrigine (Lamotrigine), 100 MG PO BID Omeprazole (Prilosec), 20 MG PO DAILY Sertraline HCl (Sertraline HCl), 200 MG PO HS Sucralfate (Sucralfate), 1 GM PO ACHS Scheduled PRN Acetaminophen (Tylenol), 1,000 MG PO Q6H PRN for Pain Albuterol Hfa (Ventolin Hfa), 2 PUFFS INH QID PRN for Shortness of Breath Vgutpuvfli-Zfgeuevrlvgmx-Wcrbd (Esgic 325/50/40MG), 1 CAP PO PRN PRN for PRN Epinephrine (Epipen 2-Nathaniel), 0.3 MG IM UD PRN for ALLERGIC REACTION Allergies Coded Allergies: BEE STING (Verified Allergy, Mild, 12/25/17) Codeine (Verified Allergy, Unknown, 12/25/17) Physical Exam Vital Signs Date Time Temp Pulse Resp B/P (MAP) Pulse Ox O2 Delivery O2 Flow Rate FiO2 12/25/17 18:39 78 20 103/79 98 12/25/17 17:36 36.7 61 18 123/87 97 Room Air Physical Exam General: Non-ill appearing middle aged male in no acute distress. HEENT: Normal cephalic atraumatic. Pupils are equal round and reactive to light. Extraocular movements are intact. Oropharynx is pink with moist mucous membranes. No swelling of the mouth lips or tongue. Neck: Supple with a midline trachea. No meningeal signs or stiffness, no JVD or bruits. No Stridor. Chest: Clear to auscultation bilaterally. No wheezes or rhonchi. No increased work of breathing. Heart: regular rate and rhythm. Abdomen: Soft nontender, nondistended without rebound guarding or rigidity. Extremities: No cyanosis clubbing or edema. No calf tenderness or assymetry Spine/Back. Non tender to palpation. No CVA tenderness Skin: Good turgor without rashes. Neurologic exam: Cranial nerves two through 12 are intact. Motor and sensation are intact and symmetrical throughout. Medical Decision & Procedures Medications Administered Medications (Trade) Dose Ordered Sig/Judy Route Start Time Stop Time Status Last Admin Dose Admin Ketorolac Tromethamine (Toradol Inj) 60 mg NOW STAT IM 12/25/17 17:54 12/25/17 17:55 DC 12/25/17 18:10 60 MG Promethazine HCl (Phenergan Inj) 25 mg NOW STAT IM 12/25/17 17:54 12/25/17 17:55 DC 12/25/17 18:09 25 MG ED Course 1742: Past medical records reviewed. The patient was evaluated in room B09, and a complete history and physical examination were performed. 1753: Ordered Phenergan Injection 25 mg IM, Toradol Injection 60 mg IM. 1906: Upon reevaluation, the patient is resting comfortably. I discussed the results and treatment plan with the patient. He verbalized agreement of the treatment plan. The patient was discharged home. Medical Decision Differentials include, but are not limited to; migraine, tension headache, infection, trauma. This patient comes in as described above. He is having a headache is very consistent with his previous migraines. I do know well from previous visits. He looks well . he appears in no distress. He has no signs to suggest meningitis or encephalitis or CVA. He was resting comfortably. I have reviewed his old records. He has a normal neurologic exam. He was given Toradol 60 mg IM and Phenergan 25 mg IM. When I go to recheck him, he is sleeping and he says he feels better. He will be discharged home. He is not driving. He was encouraged to return if: worsening symptoms, headaches different than typical, any new problems or concerns. Follow-up with his regular doctor this week for recheck Medication Reconcilliation Current Medication List: was personally reviewed by me Blood Pressure Screening Patient's blood pressure: Normal blood pressure Impression Primary Impression: Migraine Scribe Attestation The scribe's documentation has been prepared under my direction and personally reviewed by me in its entirety. I confirm that the note above accurately reflects all work, treatment, procedures, and medical decision making performed by me. Departure Information Dispostion Home / Self-Care Referrals Fabricio Kelley M.D. (MEDICAL) (PCP) Forms HOME CARE DOCUMENTATION FORM, IMPORTANT VISIT INFORMATION Patient Instructions My [facility] Additional Instructions Rest. Drink plenty of fluids. Return if: Increasing pain, worsening of symptoms, headaches different than typical, fever chills, any new problems or concerns Follow-up with your doctor this week for recheck
[2017-12-25] MEDS ORDERED: KETOROLAC TROMETHAMINE 60 MG/2 ML VIAL IM STA (17:54)
[2017-12-25] MEDS ORDERED: PROMETHAZINE HCL INJ 25 MG/ML 1 ML VIAL IM STA (17:54)
[2017-12-25 18:39] VITALS: BP 103/79; PULSE 78; O2SAT 98
== END 2017-12-25 19:15 | disposition home or self-care (01) ==
LOC: C.EDB 17:31
DX: G43.909 Migraine, unspecified, not intractable, without status migrainosus (principal); I10 Essential (primary) hypertension; Z91.030 Bee allergy status; Z88.6 Allergy status to analgesic agent; Z79.899 Other long term (current) drug therapy

== ENCOUNTER 2018-04-02 17:08 | Emergency (ER) | payer OTHER ==
[~2018-04-02] VITALS: Ht 170.2 cm; Wt 86.8 kg
[~2018-04-02 17:08] MED LIST changes: -ACET-1256 PO; -ASPI-319 PO; -CRG625 PO; -EPP3/2 IM; -FLNIN/ NAE; -FLVHFA110 INH; -LAMO1TAB21 PO; -NRN600 PO; -OMEP20CA9 PO; -ZLF/100 PO
[2018-04-02 17:11] VITALS: TEMP 36.7; Ht 170.2 cm; Wt 86.8 kg
[2018-04-02] MEDS ORDERED: SULFAMETHOXAZOLE/TRIMETHOPRIM DS 800/160MG TAB PO STA (17:20)
[2018-04-02] MEDS ORDERED: CEPHALEXIN 500MG HOME PACK 1 EA BTL PO ONE (17:30)
[2018-04-02] MEDS ORDERED: LIDOCAINE 1% BUFFERED INJ 20 ML VIAL INFIL ONE (17:30)
[2018-04-02] MEDS ORDERED: SULF800T23 PO (17:38)
[2018-04-02] MEDS ORDERED: CEPH500C PO (17:38)
[2018-04-02 17:51] VITALS: BP 126/78; PULSE 81; O2SAT 97
--- NOTE | 2018-04-02 17:52 | EMERGENCY ROOM VISIT NOTE ---
History Report prepared by Meagan: Brice Islas Under the Supervision of: Dr. Julio Bear M.D. First contact with patient: 17:16 Chief Complaint: SKIN PROBLEM Stated Complaint: BOIL UNDER R ARM History of Present Illness The patient is a 47 year old male who presents to the Emergency Room with complaints of an abscess to his right axilla x1 week. The patient notes the lesion started small but has since grown in size and became painful, so he came in. He notes he did have a similar lesion in 2016. Per old records the lesion in 2016 did grow MRSA which was susceptible to Bactrim. The patient denies a fever, chills, vomiting, or any other medical concerns. His states that he has had a small amount pus draining yesterday. Source of History: patient Onset: 1 week Position: arm (right axilla area) Symptom Intensity: minimal Quality: other (abscess) Timing: constant, worsening Associated Symptoms: No fevers, No chills, No cough, No nausea, No vomiting , No abdominal pain, No diarrhea Review of Systems See HPI for pertinent positives & negatives. A total of 10 systems reviewed and were otherwise negative. Constitutional: No fever, No chills Respiratory: No shortness of breath Cardiovascular: No chest pain Abdomen: No pain, No nausea, No vomiting, No diarrhea Integumentary: + problem reported (abscess noted right axilla), No rash Past Medical & Surgical Medical Problems: (1) Aspiration pneumonia (2) Asthma (3) Benign hypertension (4) Chest pain (5) Chronic headaches (6) Depression (7) GERD (gastroesophageal reflux disease) (8) History of hemorrhoids (9) History of kidney stones (10) Hyperlipidemia (11) MIGRAINE UNSPECIFIED W/O INTRACT MGRN W/O STATUS MIGRAINOSUS Surgical Problems: (1) H/O colonoscopy (2) H/O cystoscopy (3) History of dental surgery (4) History of lithotripsy (5) S/P hemorrhoidectomy Family History Asthma Diabetes mellitus SISTER AUNT FH: cancer FATHER Hypertension Kidney disease Social History Smoking Status: Former Smoker Alcohol Use: none Drug Use: none Marital Status: in relationship Housing Status: lives with significant other Occupation Status: disabled Current/Historical Medications Scheduled Aspirin Enteric Coated (Ecotrin Or Generic), 81 MG PO DAILY Atorvastatin (Lipitor), 20 MG PO HS Bupropion HCl (Bupropion HCl Sr), 100 MG PO BID Carvedilol (Carvedilol), 6.25 MG PO BID Cephalexin Monohydrate (Keflex), 500 MG PO QID Docusate Sodium (Docqlace), 100 MG PO BID Fluticasone Propionate (Flovent Hfa), 2 PUFFS INH BID Fluticasone Propionate (Fluticasone Propionate), 2 SPRAYS JAXSON DAILY Gabapentin (Gabapentin), 600 MG PO TID Lamotrigine (Lamotrigine), 100 MG PO BID Omeprazole (Prilosec), 20 MG PO DAILY Sertraline HCl (Sertraline HCl), 200 MG PO HS Sucralfate (Sucralfate), 1 GM PO ACHS Sulfa/Trimethoprim (Bactrim Ds 800MG/160MG), 1 TAB PO BID Scheduled PRN Acetaminophen (Tylenol), 1,000 MG PO Q6H PRN for Pain Albuterol Hfa (Ventolin Hfa), 2 PUFFS INH QID PRN for Shortness of Breath Vdxhbtsusm-Zjcldqnzzojmp-Wnjzh (Esgic 325/50/40MG), 1 CAP PO PRN PRN for PRN Epinephrine (Epipen 2-Nathaniel), 0.3 MG IM UD PRN for ALLERGIC REACTION Allergies Coded Allergies: BEE STING (Verified Allergy, Mild, 12/25/17) Codeine (Verified Allergy, Unknown, 12/25/17) Physical Exam Vital Signs Date Time Temp Pulse Resp B/P (MAP) Pulse Ox O2 Delivery O2 Flow Rate FiO2 04/02/18 17:11 36.7 84 18 123/79 98 Room Air Physical Exam Constitutional: Vital signs reviewed. Eyes: Pupils are equal round reactive to light. Conjunctiva are noninjected. ENT: Pharynx is clear without erythema or exudate. Mucous membranes are moist. Neck supple without meningeal signs. Respiratory: Clear to auscultation bilaterally. Breath sounds are equal bilaterally. Cardiovascular: Regular rate and rhythm. No rubs or gallops. GI: Soft, nondistended and nontender. Bowel sounds are present. Musculoskeletal: No peripheral edema. Integumentary: 4cm indurated abscess to the right anterior axillary line with surrounding cellulitis noted. Neurological: The patient is awake and alert. No focal deficits. Psychiatric: Normal affect. Medical Decision & Procedures Medications Administered Medications (Trade) Dose Ordered Sig/Judy Route Start Time Stop Time Status Last Admin Dose Admin Trimethoprim/ Sulfamethoxazole (Septra Ds 800/ 160MG Tab) 1 tab NOW STAT PO 04/02/18 17:20 04/02/18 17:23 DC 04/02/18 17:31 1 TAB Cephalexin Monohydrate (Keflex 500MG Home Pack) 1 homepack NOW ONCE PO 04/02/18 17:30 04/02/18 17:31 DC 04/02/18 17:31 1 HOMEPACK Procedure Incision & Drainage Indication: Abscess. Location: right axilla Verbal consent was obtained after the risks and benefits were explained, including but not limited to bleeding, scarring, infection, pain. At this time, the risks of the procedure are less than the risks of NOT performing the procedure. The skin was prepped with betadine and a sterile field set. The wound was anesthetized with 1 ml of 1% lidocaine without epinephrine. The abscess cavity was entered with a number 11 blade and scant purulent material expressed. The wound was explored for foreign bodies and none found. Debridement was not performed. No complications and the patient tolerated the procedure well. Medical Decision This is a 47-year-old male presents with a cutaneous abscess. I did perform a limited focused review of portions of the patient's old chart on the electronic medical record. Patient was seen here in 2016 for a similar abscess in his right axillary region that did grow MRSA. It was susceptible to Bactrim. I did evaluate the patient as noted above. He does have a cutaneous abscess to his right axilla. He had a prior history of MRSA. I did treat him with Bactrim and Keflex. I did perform abscess I&D with only a scant amount of pus coming out. The wound was dressed and the patient was discharged with a prescription for Bactrim and Keflex. He was advised to follow-up with his doctor within 48 hours. Medication Reconcilliation Current Medication List: was personally reviewed by me Blood Pressure Screening Patient's blood pressure: Normal blood pressure Impression Primary Impression: Cutaneous abscess Scribe Attestation The scribe's documentation has been prepared under my direct and personally reviewed by me in its entirety. I confirm that the note above accurately reflects all work, treatment, procedures, and medical decision making performed by me. Departure Information Dispostion Home / Self-Care Prescriptions Sulfa/Trimethoprim (Bactrim Ds 800MG/160MG) Tab 1 TAB PO BID for 10 Days, #14 TAB Prov: Julio Bear M.D. 04/02/18 Cephalexin Monohydrate (Keflex) 500 Mg Cap 500 MG PO QID for 9 Days, #36 CAP Prov: Julio Bear M.D. 04/02/18 Referrals Allyn Hargrove D.O. (PCP) Forms HOME CARE DOCUMENTATION FORM, IMPORTANT VISIT INFORMATION, WORK / SCHOOL INSTRUCTIONS Patient Instructions My [facility] Problem Qualifiers Primary Impression: Cutaneous abscess Site of cutaneous abscess: trunk Site of cutaneous abscess of trunk: chest wall Qualified Codes: L02.213 - Cutaneous abscess of chest wall
[2018-04-02] MEDS ORDERED: BUPR100T8 PO (17:54)
[2018-04-02] MEDS ORDERED: EPP3/2 IM (20:51)
[2018-04-02] MEDS ORDERED: LAMO1TAB21 PO (20:51)
[2018-04-02] MEDS ORDERED: ZLF/100 PO (20:51)
[2018-04-02] MEDS ORDERED: NRN600 PO (20:51)
[2018-04-02] MEDS ORDERED: FLVHFA110 INH (20:51)
[2018-04-02] MEDS ORDERED: OMEP20CA9 PO (20:51)
[2018-04-02] MEDS ORDERED: FLNIN/ NAE (21:19)
[2018-04-02] MEDS ORDERED: CRG625 PO (21:19)
[2018-04-02] MEDS ORDERED: ACET-1256 PO (21:26)
[2018-04-02] MEDS ORDERED: ASPI-319 PO (22:37)
== END 2018-04-02 17:51 | disposition home or self-care (01) ==
LOC: C.EDB 17:09
DX: L02.411 Cutaneous abscess of right axilla (principal); J45.909 Unspecified asthma, uncomplicated; I10 Essential (primary) hypertension; F32.9 Major depressive disorder, single episode, unspecified; E78.5 Hyperlipidemia, unspecified; Z87.891 Personal history of nicotine dependence; Z79.82 Long term (current) use of aspirin; Z79.51 Long term (current) use of inhaled steroids; Z79.899 Other long term (current) drug therapy; Z91.030 Bee allergy status; Z88.5 Allergy status to narcotic agent